=== PATIENT | male | born 1950 | race Caucasian/White ===

== ENCOUNTER 2019-04-23 13:53 | Inpatient (IN) | payer MEDICARE, MEDICAID ==
[2019-04-23 14:50] LABS: INR 1.13 (0.5-1.4); PROTHROMBIN TIME (TEST) 11.6 SECONDS (9.5-11.5)
[2019-04-23 14:54] LABS: ALB/GLOB RATIO 1.6 (1.0-1.8); ALBUMIN 4.6 gm/dL (4.2-5.5); ALKALINE PHOSPHATASE 109 U/L (34-104); ANION GAP 17.5 (7.0-16.0); BUN - UREA NITROGEN 17 mg/dL (7-25); CALCIUM SERUM 9.9 mg/dL (8.6-10.3); CARBON DIOXIDE 20.8 mEq/L (21.0-31.0); CHLORIDE 87 mEq/L (98-107); CREATININE - SERUM 1.2 mg/dL (0.7-1.3); CREATININE KINASE 1065 U/L (30-223); GFR AFRICAN-AMERICAN > 60.0 ml/min (>90); GFR NON AFRICAN-AMERICAN > 60.0 ml/min; GLUCOSE 111 mg/dL (70-105); POTASSIUM SERUM 4.3 mEq/L (3.5-5.1); SGOT 28 U/L (13-39); SGPT/ALT 19 U/L (7-52); SODIUM SERUM 121 mEq/L (136-145); TOTAL PROTEIN,SERUM 7.5 gm/dL (6.0-8.3)
[2019-04-23 15:04] LABS: TROP I 0.02 ng/mL (0.01-0.05)
[2019-04-23] MEDS ORDERED: Sodium Chloride 0.9% 1,000 ML IV ONE (15:05)
[2019-04-23 15:30] LABS: URINE SOURCE MIDSTREAM
[2019-04-23 15:33] LABS: URINE BILIRUBIN NEGATIVE (NEGATIVE); URINE BLOOD LARGE (NEGATIVE); URINE GLUCOSE (UA) NEGATIVE (NEGATIVE); URINE KETONE TRACE mg/dL (NEGATIVE); URINE LEUKOCYTE ESTERASE NEGATIVE (NEGATIVE); URINE MICROSCOPIC INDICATED? YES; URINE NITRATE NEGATIVE (NEGATIVE); URINE PH 5.5 (4.6 - 8.0); URINE PROTEIN >=300 mg/dL (NEGATIVE)
[2019-04-23 15:37] LABS: URINE CLARITY SLIGHT HAZY (CLEAR); URINE COLOR YELLOW
[2019-04-23] MEDS ORDERED: Levofloxacin 500mg/100mL 500 MG/100 ML BAG IV ONE ×2 (15:38→15:46)
--- NOTE | 2019-04-23 15:47 | ED Physician Chart ---
ED Chief Complaint/HPI - Patient Information Date Seen:: 04/23/19 Time Seen:: 14:00 Chief Complaint:: Fever History of Present Illness:: onset x 2 days of fever, cough, congestion, and weakness; no report of trauma, H /As, S/T, neck pain, C/P, SOB, Abd. Pain, A/N/V/D/C, chills, or urinary s/s Allergies:: Allergies Allergy/AdvReac Type Severity Reaction Status Date / Time No Known Allergies Allergy Verified 04/23/19 14:00 Vitals:: Vital Signs - 8 hr 04/23/19 14:00 Temp 99.9 F HR 94 RR 16 BP 135/88 O2 Sat % 98 Historian:: Patient, EMS Review:: Nurse's Note Reviewed, Old Chart Reviewed, EMS run form Reviewed ED Review of Systems - Review of Systems General/Constitutional: Fever, No chills, No weight loss, Weakness, No diaphoresis, No edema, No loss of appetite Skin: No skin lesions, No rash, No bruising Head: No headache, No light-headedness Eyes: No loss of vision, No pain, No diplopia ENT: No earache, Nasal drainage, No sore throat, No tinnitus Neck: No neck pain, No swelling, No thyromegaly, No stiffness, No mass noted Cardio Vascular: No chest pain, No palpitations, No PND, No orthopnea, No edema Pulmonary: No SOB, Cough, No sputum, No wheezing GI: No nausea, No vomiting, No diarrhea, No pain, No melena, No hematochezia, No constipation, No hematemesis G/U: No dysuria, No frequency, No hematuria, No nacturia Musculoskeletal: No bone or joint pain, No back pain, No muscle pain Endocrine: No polyuria, No polydipsia Psychiatric: Prior psych history, No depression, Anxiety, No suicidal ideation, No homicidal ideation, No auditory hallucination, No visual hallucination Hematopoietic: No bruising, No lymphadenopathy Allergic/Immuno: No urticaria, No angioedema Neurological: No syncope, No focal symptoms, Weakness, No paresthesia, No headache, Seizure, No dizziness, Confusion, No vertigo ED Past Medical History - Past Medical History Obtainable: Yes Past Medical History: HTN, CAD, Dyslipidemia, Seizures, Dementia Family History: HTN Social History: Non Smoker, No Alcohol, No Drug Use, Single, Care Facility Surgical History: None Psychiatricy History: Dementia Medication: Reviewed Family Medical History - Family Member Mother History Unknown: Yes ED Physical Exam - Physical Examination General/Constitutional: Awake, Well-developed, well-nourished, Alert, No distress, GCS 15, Non-toxic appearing, Ambulatory Head: Atraumatic Eyes: Lids, conjuctiva normal, PERRL, EOMI Skin: Nl inspection, No rash, No skin lesions, No ecchymosis, Well hydrated, No lymphadenopathy ENMT: External ears, nose nl, TM canals nl, Nasal exam nl, Lips, teeth, gums nl , Oropharynx nl, Tonsils nl Neck: Nontender, Full ROM w/o pain, No JVD, No nuchal rigidity, No bruit, No mass, No stridor Other Neck comments:: supple; no meningeal signs; no cervical tenderness Respiratory: Nl effort/Exclusion Other Respiratory comments:: Lungs: + Rales and Rhonchi Cardio Vascular: RRR, No murmur, gallop, rubs, NL S1 S2, Carotid/Femoral/Distal pulses equal bilaterally GI: No tenderness/rebounding/guarding, No organomegaly, No hernia, Normal BS's, Nondistended, No mass/bruits, No McBurney tenderness, Rectum exam nl Other GI comments:: no pulsatile masses : No CVA tenderness Extremities: No tenderness or effusion, Full ROM, normal strength in all extremities, No edema, Normal digits & nails Neuro/Psych: Alert/oriented, DTR's symmetric, Normal sensory exam, Normal motor strength, Judgement/insight normal, Mood normal, Normal gait, No focal deficits Misc: Normal back, No paraspinal tenderness ED Labs/Radiology/EKG Results - Lab Results Results: Laboratory Tests 04/23/19 04/23/19 04/23/19 14:25 14:25 14:25 PT 11.6 H INR 1.13 PTT (Actin FS) 28.9 Sodium 121 L Potassium 4.3 Chloride 87 L Carbon Dioxide 20.8 L Anion Gap 17.5 H BUN 17 Creatinine 1.2 Est GFR ( Amer) > 60.0 Est GFR (Non-Af Amer) > 60.0 BUN/Creatinine Ratio 14.2 Glucose 111 H Whole Bld Lactic Acid 3.41 H* Calcium 9.9 Total Bilirubin 1.0 AST 28 ALT 19 Alkaline Phosphatase 109 H Creatine Kinase 1065 H Troponin I 0.02 Total Protein 7.5 Albumin 4.6 Globulin 2.9 Albumin/Globulin Ratio 1.6 Comments:: Reviewed - Radiology Results Comments:: CXR: CM; + Patchy LLL Infiltrate - EKG Interpretations EKG Time:: 14:18 Rate & Rhythm: 89; NSR Comments:: non-specific st-t changes ED Septic Shock - . Is Septic Shock (SBP<90, OR Lactate>4 mmol\L) present?: No - <6hrs of presentation: Vital Signs: Vital Signs - 8 hr 04/23/19 14:00 Temp 99.9 F HR 94 RR 16 BP 135/88 O2 Sat % 98 ED Reassessment (Disposition) - Reassessment Reassessment Condition:: Improved - Diagnosis Diagnosis:: Dehydration; Weakness; Cough; Congestion; Hyponatremia; Lactic Acidosis; Elevated Lactic Acid; Pneumonia; Fever; Sepsis; Leukocytosis - Aftercare/Follow up Instructions Aftercare/Follow-Up Instructions:: Counseled pt regarding lab results/diagnosis & need follow up, Counseled pt & family regarding lab results/diagnosis & need follow up - Patient Disposition Discharge/Transfer:: Acute Care w/in this hosp Accepting Physician:: Dr. Swift Time Called:: 1529 Time Responded:: 15:30 Admitted to:: Telemetry Spoke to:: Dr. Swift Admitting Medical Physician:: Dr. Swift Condition at Disposition:: Stable, Improved
[2019-04-23 15:54] LABS: URINE BACTERIA OCCASIONAL /hpf (NONE SEEN); URINE EPITHELIAL CELLS RARE /lpf (FEW)
[2019-04-23 16:22] LABS: CORRECTED WBC 20.1 Th/cmm; WHITE BLOOD COUNT 20.1 Th/cmm (4.8-10.8)
[2019-04-23 16:24] LABS: HEMATOCRIT 42.3 % (41.0-60); HEMOGLOBIN 14.2 gm/dL (12-16); MEAN CORPUSCULAR HEMOGLOBIN 31.5 pg (27.0-31.0)
[2019-04-23 16:25] LABS: MEAN CORPUSCULAR HGB CONC 33.6 pg (28.0-36.0); PLATELET COUNT 254 Th/cmm (150-400); RED CELL DISTRIBUTION WIDTH 12.8 % (11.5-20.0)
[2019-04-23 16:53] LABS: BAND NEUTROPHILE 4 % (0-10); LYMPHOCYTE 5 % (20-50); MONOCYTE 5 % (2-10); NEUTROPHILS 86 % (40-80)
[2019-04-23] MEDS ORDERED: Sodium Chloride 0.9% 1,000 ML IV SCH ×3 (17:03→23:20)
[2019-04-24] MEDS: Sodium Chloride 0.9% 1,000 ML IV SCH ×3 (00:55→20:54)
[2019-04-24 06:45] LABS: EOSINOPHILE ABSOLUTE 0.1 Th/cmm (0.1-0.4); HEMATOCRIT 39.4 % (41.0-60); HEMOGLOBIN 12.8 gm/dL (12-16); LYMPHOCYTE ABSOLUTE 0.7 Th/cmm (1.5-3.0); MEAN CELL VOLUME 96.7 fl (80-99); MEAN CORPUSCULAR HEMOGLOBIN 31.4 pg (27.0-31.0); MEAN CORPUSCULAR HGB CONC 32.5 pg (28.0-36.0); MEAN PLATELET VOLUME 7.4 fl; MONOCYTE ABSOLUTE 0.9 Th/cmm (0.3-1.0); NEUTROPHILE ABSOLUTE 16.4 Th/cmm (1.8-8.0); PLATELET COUNT 214 Th/cmm (150-400); RED BLOOD COUNT 4.07 Mil/cmm (3.80-5.80); RED CELL DISTRIBUTION WIDTH 12.8 % (11.5-20.0)
[2019-04-24 06:53] LABS: ALB/GLOB RATIO 1.4 (1.0-1.8); ALBUMIN 3.5 gm/dL (4.2-5.5); ALKALINE PHOSPHATASE 83 U/L (34-104); BILIRUBIN,TOTAL 0.9 mg/dL (0.3-1.0); BUN - UREA NITROGEN 16 mg/dL (7-25); CALCIUM SERUM 8.8 mg/dL (8.6-10.3); CARBON DIOXIDE 22.1 mEq/L (21.0-31.0); CHLORIDE 93 mEq/L (98-107); CREATININE - SERUM 1.1 mg/dL (0.7-1.3); GFR AFRICAN-AMERICAN > 60.0 ml/min (>90); GFR NON AFRICAN-AMERICAN > 60.0 ml/min; GLUCOSE 133 mg/dL (70-105); POTASSIUM SERUM 4.1 mEq/L (3.5-5.1); SGOT 32 U/L (13-39); SGPT/ALT 19 U/L (7-52); SODIUM SERUM 123 mEq/L (136-145)
[2019-04-24 07:00] LABS: WHITE BLOOD COUNT 18.1 Th/cmm (4.8-10.8)
[2019-04-24 07:31] LABS: BAND NEUTROPHILE 0 % (0-10); BASOPHIL 0 % (0-3); EOSINOPHIL 0 % (0-5); LYMPHOCYTE 5 % (20-50); MONOCYTE 6 % (2-10); NEUTROPHILS 89 % (40-80)
--- NOTE | 2019-04-24 08:14 | Diagnostic Imaging Report ---
Portable chest x-ray HISTORY: Pain The heart is enlarged. No focal prominent processes. No hilar or mediastinal abnormalities. IMPRESSION: 1. Allowing for a poor inspiration, no acute focal pulmonary processes
--- NOTE | 2019-04-24 08:19 | History and Physical ---
History of Present Illness - HPI Chief Complaint: cough, fever, congestion, weakness for 2 days HPI: 68 y/o male who presents to [facility] ER for 2 day history of fever, chills, cough, congestion, weakness. Patient has a history of HTN, CAD, dyslipidemia, seizure d/o, dementia, weakness, encephalopathy, CAD. Patient presents to the hospi Vital Signs: Last Vital Signs Temp 98.9 F 04/24/19 07:51 Pulse 79 04/24/19 07:51 Resp 18 04/24/19 07:51 BP 130/61 04/24/19 07:51 Pulse Ox 97 04/24/19 07:51 Past Medical History Cardiovascular: Report: CAD, HTN, Hyperlipidemia Pulmonary: Report: No Pertinent Hx CUPOLA LINER: Report: Dementia, Seizure, Other (encephalopathy) GI: Report: No Pertinent Hx Psych: Report: No Pertinent Hx Musculoskeletal: Report: Weakness Rheumatologic: Report: No pertinent Hx Infectious Disease: Report: No Pertinent Hx Renal/: Report: No Pertinent Hx Endocrine: Report: No Pertinent Hx Dermatology: Report: No Pertinent Hx - Past Surgical History Past Surgical History: No pertinent Hx Family Medical History - Family Member Mother History Unknown: Yes Social History Smoke: No Alcohol: None Drugs: None Lives: [facility] - Medications Home Medications: Home Medication Medication Instructions Recorded Type Acetaminophen [Tylenol] 650 mg PO Q6HR PRN 04/23/19 History Amlodipine Besylate 10 mg PO DAILY 04/23/19 History Aspirin [Aspirin Chewable] 81 mg PO DAILY 04/23/19 History Clonazepam [Klonopin] 0.5 mg PO BID 04/23/19 History Donepezil HCl [Aricept] 10 mg PO HS 04/23/19 History Furosemide [Lasix] 20 mg PO MWF 04/23/19 History Gabapentin 600 mg PO TID 04/23/19 History Gemfibrozil 600 mg PO HS 04/23/19 History Lamotrigine [Lamictal Xr] 250 mg PO BID 04/23/19 History Memantine [Namenda] 10 mg PO BID 04/23/19 History Metoprolol Tartrate 25 mg PO BID 04/23/19 History Oxcarbazepine [Oxcarbazepine*] 600 mg PO BID 04/23/19 History - Allergies Allergies/Adverse Reactions: Allergies Allergy/AdvReac Type Severity Reaction Status Date / Time No Known Allergies Allergy Verified 04/23/19 14:00 Review of Systems - Review of Systems Constitutional: Report: Fever, Weakness, Malaise Eyes: Report: No Significant ENT: Report: No Significant Respiratory: Report: Other (decrease breath sounds on the left) Cardiovascular: Report: No Significant Gastrointestinal: Report: No Significant Genitourinary: Report: No Significant Musculoskeletal: Report: No Significant Skin: Report: No Significant Neurological: Report: Weakness Physical Exam - Physical Exam HEENT: Report: Ears Nose Throat within normal limits, Pharnyx within normal limits Neck: Report: Within normal limits Cardiovascular Systems: Report: +s1/s2 noted, Regular, Rate and Rhythm Respiratory: Report: Other (decrease lung sounds on the left) Abdomen: Report: Non-tender to palpation Back: Report: Inspection of back is within normal limits. Extremities: Report: Non-tender to palpation. Skin: Report: Color of skin is within normal limits Neuro/Psych: Report: Mood affect is within normal limits, A+Ox3 - Lab Results All Lab Results last 24 hours: Laboratory Results - last 24 hr 04/23/19 04/23/19 04/23/19 14:25 14:25 14:25 WBC 20.1 H* Corrected WBC (auto) 20.1 RBC 4.50 Hgb 14.2 Hct 42.3 MCV 94.0 MCH 31.5 H MCHC Differential 33.6 RDW 12.8 Plt Count 254 MPV 7.0 Add Manual Diff YES Band Neutrophils % 4 Neutrophils (Manual) 86 H Lymphocytes 5 L Monocytes 5 Eosinophils Basophils PT 11.6 H INR 1.13 PTT (Actin FS) 28.9 Sodium 121 L Potassium 4.3 Chloride 87 L Carbon Dioxide 20.8 L Anion Gap 17.5 H BUN 17 Creatinine 1.2 Est GFR ( Amer) > 60.0 Est GFR (Non-Af Amer) > 60.0 BUN/Creatinine Ratio 14.2 Glucose 111 H POC Glucose Whole Bld Lactic Acid Calcium 9.9 Total Bilirubin 1.0 AST 28 ALT 19 Alkaline Phosphatase 109 H Creatine Kinase 1065 H CK-MB (CK-2) 9.3 H Troponin I Total Protein 7.5 Albumin 4.6 Globulin 2.9 Albumin/Globulin Ratio 1.6 Urine Source Urine Color Urine Clarity Urine pH Ur Specific [place] Urine Protein Urine Glucose (UA) Urine Ketones Urine Blood Urine Nitrate Urine Bilirubin Urine Urobilinogen Ur Leukocyte Esterase Urine RBC Urine WBC Ur Epithelial Cells Urine Bacteria 04/23/19 04/23/19 04/23/19 14:25 15:00 16:45 WBC Corrected WBC (auto) RBC Hgb Hct MCV MCH MCHC Differential RDW Plt Count MPV Add Manual Diff Band Neutrophils % Neutrophils (Manual) Lymphocytes Monocytes Eosinophils Basophils PT INR PTT (Actin FS) Sodium Potassium Chloride Carbon Dioxide Anion Gap BUN Creatinine Est GFR ( Amer) Est GFR (Non-Af Amer) BUN/Creatinine Ratio Glucose POC Glucose Whole Bld Lactic Acid 3.41 H* 3.66 H* Calcium Total Bilirubin AST ALT Alkaline Phosphatase Creatine Kinase CK-MB (CK-2) Troponin I 0.02 Total Protein Albumin Globulin Albumin/Globulin Ratio Urine Source [place] Urine Color YELLOW Urine Clarity SLIGHT HAZY Urine pH 5.5 Ur Specific [place] 1.015 Urine Protein >=300 Urine Glucose (UA) NEGATIVE Urine Ketones TRACE Urine Blood LARGE H Urine Nitrate NEGATIVE Urine Bilirubin NEGATIVE Urine Urobilinogen 1.0 Ur Leukocyte Esterase NEGATIVE Urine RBC 2-5 H Urine WBC 2-5 Ur Epithelial Cells RARE Urine Bacteria OCCASIONAL 04/23/19 04/23/19 04/24/19 16:53 23:59 06:10 WBC 18.1 H Corrected WBC (auto) RBC 4.07 Hgb 12.8 Hct 39.4 L MCV 96.7 MCH 31.4 H MCHC Differential 32.5 RDW 12.8 Plt Count 214 MPV 7.4 Add Manual Diff YES Band Neutrophils % 0 Neutrophils (Manual) 89 H Lymphocytes 5 L Monocytes 6 Eosinophils 0 Basophils 0 PT INR PTT (Actin FS) Sodium Potassium Chloride Carbon Dioxide Anion Gap BUN Creatinine Est GFR ( Amer) Est GFR (Non-Af Amer) BUN/Creatinine Ratio Glucose POC Glucose 97 Whole Bld Lactic Acid 2.13 H* Calcium Total Bilirubin AST ALT Alkaline Phosphatase Creatine Kinase CK-MB (CK-2) Troponin I Total Protein Albumin Globulin Albumin/Globulin Ratio Urine Source Urine Color Urine Clarity Urine pH Ur Specific [place] Urine Protein Urine Glucose (UA) Urine Ketones Urine Blood Urine Nitrate Urine Bilirubin Urine Urobilinogen Ur Leukocyte Esterase Urine RBC Urine WBC Ur Epithelial Cells Urine Bacteria 04/24/19 04/24/19 06:10 06:10 WBC Corrected WBC (auto) RBC Hgb Hct MCV MCH MCHC Differential RDW Plt Count MPV Add Manual Diff Band Neutrophils % Neutrophils (Manual) Lymphocytes Monocytes Eosinophils Basophils PT INR PTT (Actin FS) Sodium 123 L Potassium 4.1 Chloride 93 L Carbon Dioxide 22.1 Anion Gap 12.0 BUN 16 Creatinine 1.1 Est GFR ( Amer) > 60.0 Est GFR (Non-Af Amer) > 60.0 BUN/Creatinine Ratio 14.5 Glucose 133 H POC Glucose Whole Bld Lactic Acid 1.49 Calcium 8.8 Total Bilirubin 0.9 AST 32 ALT 19 Alkaline Phosphatase 83 Creatine Kinase CK-MB (CK-2) Troponin I Total Protein 6.0 Albumin 3.5 L Globulin 2.5 Albumin/Globulin Ratio 1.4 Urine Source Urine Color Urine Clarity Urine pH Ur Specific [place] Urine Protein Urine Glucose (UA) Urine Ketones Urine Blood Urine Nitrate Urine Bilirubin Urine Urobilinogen Ur Leukocyte Esterase Urine RBC Urine WBC Ur Epithelial Cells Urine Bacteria - Assessment Assessment: hyponatremia sepsis leukocytosis LLL PNA Rhabdomylosis elevated lactic acid HTN CAD Dyslipidemia Seizure d/o dementia weakness amd fatigue encephalopathy CAD - Plan Plan: ID consult Pulmonary consult Neuro consult psychiatric consult repeat CBC,CMP,lipid profile, TSH, CK, Ck-MB, lactic acid continue IV fluids continue IV Zosyn and azithromycin repeat cxr tomorrow
[2019-04-24 08:31] LABS: CHOLESTEROL 126 mg/dL (<200); HDL -HIGH DENSITY LIPOPROTEIN 56 mg/dL (23-92); TRIGLYCERIDES 65 mg/dL (<150)
--- NOTE | 2019-04-24 08:31 | Consultation ---
Consult Note - Consult Note Service Date: 04/24/19 Referring Physician: Flash Carrion Consult Note: PHYSICIAN Consultation Note: Date of Admission: 04/23/19 Purpose of Consultation: Sepsis, Pneumonia Chief Complaint: Patient CHARLIE FERNANDEZ was admitted to [facility] Telemetry with SEPSIS, PNA, HYPONATREMIA. History of Present Illness: 68 y/o male with PMH of HTN, CAD, dyslipidemia, seizure d/o, dementia, weakness , encephalopathy, CAD presented to the ER for 2 day history of fever, chills, cough, congestion, weakness. On initiall evaluation, his temperature was 99.9F , it went up to 100.3F and WBC count was 20,100. Lactic acid was 3.41 and it went up to 3.66. I was called for antibiotic management. High flow IVF given and his Lactic acid improved. Antibiotic romeo, he had received levaquin in the ER, and it was changed to Zosyn and Zithromax. HE feels better. He is a poor hisptorian and does not provide any meaningful history. Past Medical History: HTN, CAD, dyslipidemia, seizure d/o, dementia, weakness, encephalopathy, CAD Allergies Allergy/AdvReac Type Severity Reaction Status Date / Time No Known Allergies Allergy Verified 04/23/19 14:00 Vital Signs Temp 98.9 F 04/24/19 07:51 Pulse 79 04/24/19 07:51 Resp 18 04/24/19 07:51 BP 130/61 04/24/19 07:51 Pulse Ox 97 04/24/19 07:51 Intake & Output 04/23/19 04/24/19 04/24/19 18:59 06:59 18:59 Intake Total 1193.333 764.583 Balance 1193.333 764.583 Weight (lbs) 105.687 kg 105.687 kg Intake: Intake, IV Amount 1043.333 764.583 Piperacillin Sodium/ 200 Tazobact 4.5 gm In Sodium Chloride 0.9% 100 ml @ 100 mls/hr IV Q8HR JUAN Rx #:[id number] Sodium Chloride 0.9% 1, 764.583 000 ml @ 125 mls/hr IV . Q8H JUAN Rx#:[id number] Sodium Chloride 0.9% 1, 593.333 000 ml @ 200 mls/hr IV . Q5H JUAN Rx#:[id number] Oral 150 Other: # Voids 4 Weight Source Estimated Bedscale Laboratory Results - last 24 hr 04/23/19 04/23/19 04/23/19 14:25 14:25 14:25 WBC 20.1 H* Corrected WBC (auto) 20.1 RBC 4.50 Hgb 14.2 Hct 42.3 MCV 94.0 MCH 31.5 H MCHC Differential 33.6 RDW 12.8 Plt Count 254 MPV 7.0 Add Manual Diff YES Band Neutrophils % 4 Neutrophils (Manual) 86 H Lymphocytes 5 L Monocytes 5 Eosinophils Basophils PT 11.6 H INR 1.13 PTT (Actin FS) 28.9 Sodium 121 L Potassium 4.3 Chloride 87 L Carbon Dioxide 20.8 L Anion Gap 17.5 H BUN 17 Creatinine 1.2 Est GFR ( Amer) > 60.0 Est GFR (Non-Af Amer) > 60.0 BUN/Creatinine Ratio 14.2 Glucose 111 H POC Glucose Whole Bld Lactic Acid Calcium 9.9 Total Bilirubin 1.0 AST 28 ALT 19 Alkaline Phosphatase 109 H Creatine Kinase 1065 H CK-MB (CK-2) 9.3 H Troponin I Total Protein 7.5 Albumin 4.6 Globulin 2.9 Albumin/Globulin Ratio 1.6 Urine Source Urine Color Urine Clarity Urine pH Ur Specific [place] Urine Protein Urine Glucose (UA) Urine Ketones Urine Blood Urine Nitrate Urine Bilirubin Urine Urobilinogen Ur Leukocyte Esterase Urine RBC Urine WBC Ur Epithelial Cells Urine Bacteria 04/23/19 04/23/19 04/23/19 14:25 15:00 16:45 WBC Corrected WBC (auto) RBC Hgb Hct MCV MCH MCHC Differential RDW Plt Count MPV Add Manual Diff Band Neutrophils % Neutrophils (Manual) Lymphocytes Monocytes Eosinophils Basophils PT INR PTT (Actin FS) Sodium Potassium Chloride Carbon Dioxide Anion Gap BUN Creatinine Est GFR ( Amer) Est GFR (Non-Af Amer) BUN/Creatinine Ratio Glucose POC Glucose Whole Bld Lactic Acid 3.41 H* 3.66 H* Calcium Total Bilirubin AST ALT Alkaline Phosphatase Creatine Kinase CK-MB (CK-2) Troponin I 0.02 Total Protein Albumin Globulin Albumin/Globulin Ratio Urine Source [place] Urine Color YELLOW Urine Clarity SLIGHT HAZY Urine pH 5.5 Ur Specific [place] 1.015 Urine Protein >=300 Urine Glucose (UA) NEGATIVE Urine Ketones TRACE Urine Blood LARGE H Urine Nitrate NEGATIVE Urine Bilirubin NEGATIVE Urine Urobilinogen 1.0 Ur Leukocyte Esterase NEGATIVE Urine RBC 2-5 H Urine WBC 2-5 Ur Epithelial Cells RARE Urine Bacteria OCCASIONAL 04/23/19 04/23/19 04/24/19 16:53 23:59 06:10 WBC 18.1 H Corrected WBC (auto) RBC 4.07 Hgb 12.8 Hct 39.4 L MCV 96.7 MCH 31.4 H MCHC Differential 32.5 RDW 12.8 Plt Count 214 MPV 7.4 Add Manual Diff YES Band Neutrophils % 0 Neutrophils (Manual) 89 H Lymphocytes 5 L Monocytes 6 Eosinophils 0 Basophils 0 PT INR PTT (Actin FS) Sodium Potassium Chloride Carbon Dioxide Anion Gap BUN Creatinine Est GFR ( Amer) Est GFR (Non-Af Amer) BUN/Creatinine Ratio Glucose POC Glucose 97 Whole Bld Lactic Acid 2.13 H* Calcium Total Bilirubin AST ALT Alkaline Phosphatase Creatine Kinase CK-MB (CK-2) Troponin I Total Protein Albumin Globulin Albumin/Globulin Ratio Urine Source Urine Color Urine Clarity Urine pH Ur Specific [place] Urine Protein Urine Glucose (UA) Urine Ketones Urine Blood Urine Nitrate Urine Bilirubin Urine Urobilinogen Ur Leukocyte Esterase Urine RBC Urine WBC Ur Epithelial Cells Urine Bacteria 04/24/19 04/24/19 06:10 06:10 WBC Corrected WBC (auto) RBC Hgb Hct MCV MCH MCHC Differential RDW Plt Count MPV Add Manual Diff Band Neutrophils % Neutrophils (Manual) Lymphocytes Monocytes Eosinophils Basophils PT INR PTT (Actin FS) Sodium 123 L Potassium 4.1 Chloride 93 L Carbon Dioxide 22.1 Anion Gap 12.0 BUN 16 Creatinine 1.1 Est GFR ( Amer) > 60.0 Est GFR (Non-Af Amer) > 60.0 BUN/Creatinine Ratio 14.5 Glucose 133 H POC Glucose Whole Bld Lactic Acid 1.49 Calcium 8.8 Total Bilirubin 0.9 AST 32 ALT 19 Alkaline Phosphatase 83 Creatine Kinase CK-MB (CK-2) Troponin I Total Protein 6.0 Albumin 3.5 L Globulin 2.5 Albumin/Globulin Ratio 1.4 Urine Source Urine Color Urine Clarity Urine pH Ur Specific [place] Urine Protein Urine Glucose (UA) Urine Ketones Urine Blood Urine Nitrate Urine Bilirubin Urine Urobilinogen Ur Leukocyte Esterase Urine RBC Urine WBC Ur Epithelial Cells Urine Bacteria Home Medication Medication Instructions Recorded Type Acetaminophen [Tylenol] 650 mg PO Q6HR PRN 04/23/19 History Amlodipine Besylate 10 mg PO DAILY 04/23/19 History Aspirin [Aspirin Chewable] 81 mg PO DAILY 04/23/19 History Clonazepam [Klonopin] 0.5 mg PO BID 04/23/19 History Donepezil HCl [Aricept] 10 mg PO HS 04/23/19 History Furosemide [Lasix] 20 mg PO MWF 04/23/19 History Gabapentin 600 mg PO TID 04/23/19 History Gemfibrozil 600 mg PO HS 04/23/19 History Lamotrigine [Lamictal Xr] 250 mg PO BID 04/23/19 History Memantine [Namenda] 10 mg PO BID 04/23/19 History Metoprolol Tartrate 25 mg PO BID 04/23/19 History Oxcarbazepine [Oxcarbazepine*] 600 mg PO BID 04/23/19 History Current Medications Generic Name Dose Route Start Last Admin Trade Name Freq PRN Reason Stop Dose Admin Amlodipine Besylate 10 mg 04/24/19 09:00 Norvasc PO 06/23/19 08:59 DAILY JUAN Aspirin 81 mg 04/24/19 09:00 Aspirin Chewable PO 06/23/19 08:59 DAILY JUAN Clonazepam 0.5 mg 04/24/19 09:00 Klonopin PO 06/23/19 08:59 BID [facility] Protocol Donepezil HCl 10 mg 04/24/19 21:00 Aricept PO 06/23/19 20:59 HS JUAN Azithromycin 500 mg/ Sodium 250 mls @ 250 mls/hr 04/24/19 09:00 Chloride IV 06/23/19 08:59 Q24HR JUAN Piperacillin Sod/Tazobactam 100 mls @ 100 mls/hr 04/23/19 21:00 04/24/19 05: 16 Sod 4.5 gm/ Sodium Chloride IV 06/22/19 20:59 Infused Q8HR JUAN Infusion Lamotrigine 200 mg/ 250 mg 04/24/19 09:00 Lamotrigine 50 mg PO 06/23/19 08:59 BID JUAN Memantine 10 mg 04/24/19 09:00 Namenda PO 06/23/19 08:59 BID [facility] Metoprolol Tartrate 25 mg 04/24/19 09:00 Lopressor PO 06/23/19 08:59 BID JUAN Oxcarbazepine 600 mg 04/24/19 09:00 Trileptal PO 06/23/19 08:59 BID JUAN Review of Systems: A 12 point ROS was reviewed with the pertinent positive and negatives noted in the HPI. GEN: NO fever, no chills, no diaphoresis. Has general;ized weakness. HEENT: no diplopia, no photophobia, no sore throat, no ear discharge. RS: copugh, no shortness of breath. CVS: no CP, no palpitations, no leg swelling. GI: No N/V/D/C. no abd pains. : no dysuria. no hematuria. CAREER SPECIALIST: No headache, no dizziness. Social History Smoking Status Never smoker Drug Use No Alcohol Use No Family Medical History Unknown Physical Exam: General: Comfortable, not in any acute distress. WN WD. HEENT: HEAD: NC NT. ORAL CAVITy: moist, pink tongue. EYES: Pupil PERRLA. EOMI. Neck: Supple, no JVD, no carotid bruit. No use of accessory neck muscles. Cardio: S1 and S2 WNL. no murmur. no gallop, no rub. Respiratory: CTAP Abdominal: Soft NT ND BS present. no hepatosplenomegaly. Genital/Urinary: Deferred Extremities: NCC, pulses are palpable in all 4 limbs. Left leg swelling and redness. warm to touch Neurological: Alert awake, moves all 4 limbs, speech is clear. Assessment: 1. Sepsis. severe sepsis with lactic acidosis. 2. Left leg cellulitis. 3. Susoect Pneumonia. 4. HTN. 5. Rhabdomyolysis. 6. Hyponatremia. 7. Dementia. Plan: Will change Zosyn and Zithromax to levaquin. Add vanco IV, IVF support. Thank you Dr Carrion for involving me in taking care of this patient. Signed, Nestor Morataya M.D. [id number]
--- NOTE | 2019-04-24 08:48 | Diagnostic Imaging Report ---
Portable chest x-ray HISTORY: Shortness of breath The heart is enlarged. No focal pulmonary processes. No hilar or mediastinal abnormalities. IMPRESSION: 1. Cardiomegaly 2. No focal pulmonary processes.
[2019-04-24] MEDS ORDERED: Azithromycin 500 MG in Sodium Chloride 0.9% 250 ML IV SCH (09:00)
[2019-04-24] MEDS ORDERED: LAMOTRIGINE 250 MG PO SCH (09:00)
[2019-04-24] MEDS: Aspirin 81mg Chewable Tab PO SCH (09:08)
[2019-04-24] MEDS ORDERED: Levofloxacin 500mg/100mL 500 MG/100 ML BAG IV SCH ×2 (10:00→17:00)
[2019-04-24] MEDS ORDERED: Vancomycin HCl 1.75 GM in Sodium Chloride 0.9% 500 ML IV ONE (16:00)
[2019-04-24] MEDS ORDERED: Vancomycin HCl 1.5 GM in Sodium Chloride 0.9% 500 ML IV ONE (16:00)
--- NOTE | 2019-04-25 02:22 | Consultation ---
DATE OF CONSULTATION: 04/24/2019 HISTORY OF PRESENT ILLNESS: The patient is 68-year-old. Complains of weakness. Redness in the left leg. Swelling in the left leg. 1. The patient has underlying history of hypertension. 3. Dyslipidemia. 4. Coronary artery disease. 5. Seizures. 6. Dementia. 7. Weakness. MEDICATIONS: As per reconciliation. The patient was on aspirin, clonazepam, Aricept, Lasix, gabapentin, gemfibrozil, lamotrigine 250 b.i.d., oxcarbazepine 600 b.i.d., metoprolol. ALLERGIES: None known. SOCIAL HISTORY: Does not smoke or drink. PHYSICAL EXAMINATION: VITAL SIGNS: Temperature 98.2, blood pressure 130/70, pulse 74. NECK: Supple, no bruits. HEART: Sounds S1, S2. LUNGS: Clear. NEUROLOGIC: The patient is awake, alert. He would like to answer questions. Speech slow, but able to answer. He did not know what day, what month, what year. CRANIAL: Pupils react to light. Full eye movement, no nystagmus. No facial weakness. MOTOR: He will lift both arms. Legs, he has redness of the left leg, swelling of the left lower leg. INVESTIGATIONS: CPK elevated. Sodium very low at 121. IMPRESSION: 1. History of seizure disorder. 2. Hyponatremia, probably medication related. 3. Rhabdomyolysis. 4. The patient has cellulitis infection of the left lower leg. 5. Hypertension. 6. Dementia. 7. Hyperlipidemia. PLAN: Monitor CPK level. May need to adjust the patient's seizure medications. I do not know whether he has had any issues with other seizure medication such as Keppra. JOB# [id number]
[2019-04-25 06:25] LABS: HEMATOCRIT 40.4 % (41.0-60); HEMOGLOBIN 13.4 gm/dL (12-16); MEAN CELL VOLUME 95.2 fl (80-99); MEAN CORPUSCULAR HEMOGLOBIN 31.5 pg (27.0-31.0); MEAN CORPUSCULAR HGB CONC 33.1 pg (28.0-36.0); MEAN PLATELET VOLUME 7.2 fl; PLATELET COUNT 231 Th/cmm (150-400); RED BLOOD COUNT 4.25 Mil/cmm (3.80-5.80); RED CELL DISTRIBUTION WIDTH 12.9 % (11.5-20.0)
[2019-04-25 06:45] LABS: ALB/GLOB RATIO 1.2 (1.0-1.8); ALBUMIN 3.5 gm/dL (4.2-5.5); ALKALINE PHOSPHATASE 97 U/L (34-104); ANION GAP 12.9 (7.0-16.0); BILIRUBIN,TOTAL 0.7 mg/dL (0.3-1.0); BUN - UREA NITROGEN 11 mg/dL (7-25); CALCIUM SERUM 8.9 mg/dL (8.6-10.3); CARBON DIOXIDE 21.9 mEq/L (21.0-31.0); CHLORIDE 95 mEq/L (98-107); CREATININE - SERUM 0.7 mg/dL (0.7-1.3); CREATININE KINASE 474 U/L (30-223); GFR AFRICAN-AMERICAN > 60.0 ml/min (>90); GFR NON AFRICAN-AMERICAN > 60.0 ml/min; GLUCOSE 120 mg/dL (70-105); POTASSIUM SERUM 3.8 mEq/L (3.5-5.1); SGOT 21 U/L (13-39); SGPT/ALT 17 U/L (7-52); SODIUM SERUM 126 mEq/L (136-145); TOTAL PROTEIN,SERUM 6.4 gm/dL (6.0-8.3)
[2019-04-25 07:27] LABS: BAND NEUTROPHILE 0 % (0-10); BASOPHIL 0 % (0-3); EOSINOPHIL 3 % (0-5); LYMPHOCYTE 6 % (20-50); MONOCYTE 5 % (2-10); NEUTROPHILS 86 % (40-80)
--- NOTE | 2019-04-25 07:40 | General Progress Note ---
Subjective - Review of Systems Service Date: 04/25/19 Subjective: Patient is feeling better. No acute distress. more awake alert. Objective - Results Result Diagrams: 04/25/19 05:45 04/25/19 05:45 Recent Labs: Laboratory Last Values WBC 15.0 Th/cmm (4.8-10.8) H 04/25/19 05:45 Corrected WBC (auto) 20.1 Th/cmm 04/23/19 14:25 RBC 4.25 Mil/cmm (3.80-5.80) 04/25/19 05:45 Hgb 13.4 gm/dL (12-16) 04/25/19 05:45 Hct 40.4 % (41.0-60) L 04/25/19 05:45 MCV 95.2 fl (80-99) 04/25/19 05:45 MCH 31.5 pg (27.0-31.0) H 04/25/19 05:45 MCHC Differential 33.1 pg (28.0-36.0) 04/25/19 05:45 RDW 12.9 % (11.5-20.0) 04/25/19 05:45 Plt Count 231 Th/cmm (150-400) 04/25/19 05:45 MPV 7.2 fl 04/25/19 05:45 Add Manual Diff YES 04/25/19 05:45 Band Neutrophils % 0 % (0-10) 04/25/19 05:45 Neutrophils (Manual) 86 % (40-80) H 04/25/19 05:45 Lymphocytes 6 % (20-50) L 04/25/19 05:45 Monocytes 5 % (2-10) 04/25/19 05:45 Eosinophils 3 % (0-5) 04/25/19 05:45 Basophils 0 % (0-3) 04/25/19 05:45 PT 11.6 SECONDS (9.5-11.5) H 04/23/19 14:25 INR 1.13 (0.5-1.4) 04/23/19 14:25 PTT (Actin FS) 28.9 SECONDS (26.0-38.0) 04/23/19 14:25 Sodium 126 mEq/L (136-145) L 04/25/19 05:45 Potassium 3.8 mEq/L (3.5-5.1) 04/25/19 05:45 Chloride 95 mEq/L (98-107) L 04/25/19 05:45 Carbon Dioxide 21.9 mEq/L (21.0-31.0) 04/25/19 05:45 Anion Gap 12.9 (7.0-16.0) 04/25/19 05:45 BUN 11 mg/dL (7-25) 04/25/19 05:45 Creatinine 0.7 mg/dL (0.7-1.3) 04/25/19 05:45 Est GFR ( Amer) > 60.0 ml/min (>90) 04/25/19 05:45 Est GFR (Non-Af Amer) > 60.0 ml/min 04/25/19 05:45 BUN/Creatinine Ratio 15.7 04/25/19 05:45 Glucose 120 mg/dL (70-105) H 04/25/19 05:45 POC Glucose 97 MG/DL (70 - 105) 04/23/19 16:53 Whole Bld Lactic Acid 1.49 mmol/L (0.60-1.99) 04/24/19 06:10 Calcium 8.9 mg/dL (8.6-10.3) 04/25/19 05:45 Total Bilirubin 0.7 mg/dL (0.3-1.0) 04/25/19 05:45 AST 21 U/L (13-39) 04/25/19 05:45 ALT 17 U/L (7-52) 04/25/19 05:45 Alkaline Phosphatase 97 U/L (34-104) 04/25/19 05:45 Creatine Kinase 474 U/L (30-223) H 04/25/19 05:45 CK-MB (CK-2) 1.7 ng/mL (0.6-6.3) 04/25/19 05:45 Troponin I 0.02 ng/mL (0.01-0.05) 04/23/19 14:25 Total Protein 6.4 gm/dL (6.0-8.3) 04/25/19 05:45 Albumin 3.5 gm/dL (4.2-5.5) L 04/25/19 05:45 Globulin 2.9 gm/dL 04/25/19 05:45 Albumin/Globulin Ratio 1.2 (1.0-1.8) 04/25/19 05:45 Triglycerides 65 mg/dL (<150) 04/24/19 06:10 Cholesterol 126 mg/dL (<200) 04/24/19 06:10 LDL Cholesterol Direct 53 mg/dL (75-193) L 04/24/19 06:10 HDL Cholesterol 56 mg/dL (23-92) 04/24/19 06:10 TSH 0.85 uIU/ml (0.34-5.60) 04/24/19 06:10 Urine Source MIDSTREAM 04/23/19 15:00 Urine Color YELLOW 04/23/19 15:00 Urine Clarity SLIGHT HAZY (CLEAR) 04/23/19 15:00 Urine pH 5.5 (4.6 - 8.0) 04/23/19 15:00 Ur Specific [place] 1.015 (1.005-1.030) 04/23/19 15:00 Urine Protein >=300 mg/dL (NEGATIVE) 04/23/19 15:00 Urine Glucose (UA) NEGATIVE mg/dL (NEGATIVE) 04/23/19 15:00 Urine Ketones TRACE mg/dL (NEGATIVE) 04/23/19 15:00 Urine Blood LARGE (NEGATIVE) H 04/23/19 15:00 Urine Nitrate NEGATIVE (NEGATIVE) 04/23/19 15:00 Urine Bilirubin NEGATIVE (NEGATIVE) 04/23/19 15:00 Urine Urobilinogen 1.0 E.U./dL (0.2 - 1.0) 04/23/19 15:00 Ur Leukocyte Esterase NEGATIVE (NEGATIVE) 04/23/19 15:00 Urine RBC 2-5 /hpf (0-5) H 04/23/19 15:00 Urine WBC 2-5 /hpf (0-5) 04/23/19 15:00 Ur Epithelial Cells RARE /lpf (FEW) 04/23/19 15:00 Urine Bacteria OCCASIONAL /hpf (NONE SEEN) 04/23/19 15:00 - Physical Exam Vitals and I&O: Vital Signs Temp 98.2 F 04/25/19 04:00 Pulse 78 04/25/19 04:00 Resp 19 04/25/19 05:00 BP 117/65 04/25/19 04:00 Pulse Ox 97 04/25/19 04:00 Intake & Output 04/24/19 04/25/19 04/25/19 18:59 06:59 18:59 Intake Total 1124.583 Balance 1124.583 Weight (lbs) 105.687 kg 105.687 kg Intake: Intake, IV Amount 764.583 Sodium Chloride 0.9% 1, 764.583 000 ml @ 125 mls/hr IV . Q8H [facility] Rx#:[id number] Oral 360 Other: # Voids 2 3 # Bowel Movements 1 Weight Source Bedscale Bedscale Active Medications: Current Medications Amlodipine Besylate (Norvasc) 10 mg PO DAILY [facility] Stop: 06/23/19 08:59 Last Admin: 04/24/19 09:08 Dose: 10 mg Aspirin (Aspirin Chewable) 81 mg PO DAILY [facility] Stop: 06/23/19 08:59 Last Admin: 04/24/19 09:08 Dose: 81 mg Clonazepam (Klonopin) 0.5 mg PO BID [facility]; Protocol Stop: 06/23/19 08:59 Last Admin: 04/24/19 16:34 Dose: 0.5 mg Donepezil HCl (Aricept) 10 mg PO HS [facility] Stop: 06/23/19 20:59 Last Admin: 04/24/19 20:49 Dose: 10 mg Sodium Chloride (Nacl 0.9%) 1,000 mls @ 80 mls/hr IV .[id number] [facility] Stop: 06/23/19 08:44 Last Admin: 04/24/19 20:54 Dose: 80 mls/hr Levofloxacin (Levaquin Pb) 500 mg in 100 mls @ 100 mls/hr IV Q24HR [facility] Stop: 06/23/19 09:59 Last Admin: 04/24/19 10:35 Dose: 100 mls/hr Vancomycin HCl 1.5 gm/ Sodium (Chloride) 500 mls @ 250 mls/hr IV Q12H [facility] Stop: 06/24/19 08:59 Lamotrigine 200 mg/ (Lamotrigine 50 mg) 250 mg PO BID [facility] Stop: 06/23/19 08:59 Last Admin: 04/24/19 16:34 Dose: 250 mg Memantine (Namenda) 10 mg PO BID [facility] Stop: 06/23/19 08:59 Last Admin: 04/24/19 16:34 Dose: 10 mg Metoprolol Tartrate (Lopressor) 25 mg PO BID [facility] Stop: 06/23/19 08:59 Last Admin: 04/24/19 16:34 Dose: 25 mg Miscellaneous (Vancomycin Iv Per Pharmacy) 1 ea MC PRN PRN PRN Reason: PROTOCOL Stop: 06/23/19 14:50 Oxcarbazepine (Trileptal) 600 mg PO BID [facility] Stop: 06/23/19 08:59 Last Admin: 04/24/19 16:34 Dose: 600 mg General: Alert, Oriented x3, No acute distress HEENT: Atraumatic, PERRLA, EOMI Neck: Supple Cardiovascular: Regular rate, Normal S1, Normal S2 Abdomen: Bowel sounds, Soft Extremities: Edema (+2 edema) Neurological: Normal gait, Normal speech Skin: Rash (presence of erythema to the lower ext) Assessment/Plan - Assessment Assessment: hyponatremia improving sepsis leukocytosis LLL PNA repeat CXR Rhabdomylosis CK 1065-->474 elevated lactic acid --> 3.4-->1.49 HTN controlled CAD Dyslipidemia Seizure d/o ... neuro consult dementia weakness and fatigue encephalopathy stable CAD lower ext edema ... for doppler U/S venous and arterial - Plan Plan: ID consult Pulmonary consult Neuro consult psychiatric consult repeat CBC,CMP,lipid profile, TSH, CK, Ck-MB, lactic acid continue IV fluids continue IV Zosyn and azithromycin repeat cxr tomorrow
[2019-04-25] MEDS: Aspirin 81mg Chewable Tab PO SCH (08:32)
--- NOTE | 2019-04-25 08:32 | Diagnostic Imaging Report ---
CHEST X-RAY: AP view INDICATION: Congestion COMPARISON: Chest x-ray 04/24/2019 FINDINGS: Chronic lung changes are noted. There is mild elevation of the right hemidiaphragm. Slight increased bibasilar lung markings are noted. Borderline prominent heart is noted. IMPRESSION: No evidence of cherri CHF. Slight increased bibasal lung markings which may be due to atelectatic changes. No focal consolidation identified.
[2019-04-25] MEDS: Vancomycin HCl 1.5 GM in Sodium Chloride 0.9% 500 ML IV SCH ×2 (08:33→21:17)
--- NOTE | 2019-04-25 08:37 | Diagnostic Imaging Report ---
Left lower extremity DVT study HISTORY: Left leg swelling and redness COMPARISON: None Technique: Longitudinal and transverse sonographic images of the left lower extremity veins were obtained with doppler analysis. FINDINGS: There is normal compressibility, augmentation and phasicity of the left common femoral, superficial femoral, popliteal, and posterior tibial veins. No thrombus is visualized. IMPRESSION: No evidence of thrombus within the left lower extremity veins.
--- NOTE | 2019-04-25 09:01 | Infectious Disease Prog Note ---
Infectious Disease Subjective - Review of Systems Service Date: 04/25/19 Subjective: There is no new change, no fever. Infectious Disease Objective - Results Result Diagrams: 04/25/19 05:45 04/25/19 05:45 Recent Labs: Laboratory Last Values WBC 15.0 Th/cmm (4.8-10.8) H 04/25/19 05:45 Corrected WBC (auto) 20.1 Th/cmm 04/23/19 14:25 RBC 4.25 Mil/cmm (3.80-5.80) 04/25/19 05:45 Hgb 13.4 gm/dL (12-16) 04/25/19 05:45 Hct 40.4 % (41.0-60) L 04/25/19 05:45 MCV 95.2 fl (80-99) 04/25/19 05:45 MCH 31.5 pg (27.0-31.0) H 04/25/19 05:45 MCHC Differential 33.1 pg (28.0-36.0) 04/25/19 05:45 RDW 12.9 % (11.5-20.0) 04/25/19 05:45 Plt Count 231 Th/cmm (150-400) 04/25/19 05:45 MPV 7.2 fl 04/25/19 05:45 Add Manual Diff YES 04/25/19 05:45 Band Neutrophils % 0 % (0-10) 04/25/19 05:45 Neutrophils (Manual) 86 % (40-80) H 04/25/19 05:45 Lymphocytes 6 % (20-50) L 04/25/19 05:45 Monocytes 5 % (2-10) 04/25/19 05:45 Eosinophils 3 % (0-5) 04/25/19 05:45 Basophils 0 % (0-3) 04/25/19 05:45 PT 11.6 SECONDS (9.5-11.5) H 04/23/19 14:25 INR 1.13 (0.5-1.4) 04/23/19 14:25 PTT (Actin FS) 28.9 SECONDS (26.0-38.0) 04/23/19 14:25 Sodium 126 mEq/L (136-145) L 04/25/19 05:45 Potassium 3.8 mEq/L (3.5-5.1) 04/25/19 05:45 Chloride 95 mEq/L (98-107) L 04/25/19 05:45 Carbon Dioxide 21.9 mEq/L (21.0-31.0) 04/25/19 05:45 Anion Gap 12.9 (7.0-16.0) 04/25/19 05:45 BUN 11 mg/dL (7-25) 04/25/19 05:45 Creatinine 0.7 mg/dL (0.7-1.3) 04/25/19 05:45 Est GFR ( Amer) > 60.0 ml/min (>90) 04/25/19 05:45 Est GFR (Non-Af Amer) > 60.0 ml/min 04/25/19 05:45 BUN/Creatinine Ratio 15.7 04/25/19 05:45 Glucose 120 mg/dL (70-105) H 04/25/19 05:45 POC Glucose 97 MG/DL (70 - 105) 04/23/19 16:53 Whole Bld Lactic Acid 1.49 mmol/L (0.60-1.99) 04/24/19 06:10 Calcium 8.9 mg/dL (8.6-10.3) 04/25/19 05:45 Total Bilirubin 0.7 mg/dL (0.3-1.0) 04/25/19 05:45 AST 21 U/L (13-39) 04/25/19 05:45 ALT 17 U/L (7-52) 04/25/19 05:45 Alkaline Phosphatase 97 U/L (34-104) 04/25/19 05:45 Creatine Kinase 474 U/L (30-223) H 04/25/19 05:45 CK-MB (CK-2) 1.7 ng/mL (0.6-6.3) 04/25/19 05:45 Troponin I 0.02 ng/mL (0.01-0.05) 04/23/19 14:25 Total Protein 6.4 gm/dL (6.0-8.3) 04/25/19 05:45 Albumin 3.5 gm/dL (4.2-5.5) L 04/25/19 05:45 Globulin 2.9 gm/dL 04/25/19 05:45 Albumin/Globulin Ratio 1.2 (1.0-1.8) 04/25/19 05:45 Triglycerides 65 mg/dL (<150) 04/24/19 06:10 Cholesterol 126 mg/dL (<200) 04/24/19 06:10 LDL Cholesterol Direct 53 mg/dL (75-193) L 04/24/19 06:10 HDL Cholesterol 56 mg/dL (23-92) 04/24/19 06:10 TSH 0.85 uIU/ml (0.34-5.60) 04/24/19 06:10 Prolactin 8.9 ng/mL (4.0-15.2) 04/24/19 06:10 Urine Source MIDSTREAM 04/23/19 15:00 Urine Color YELLOW 04/23/19 15:00 Urine Clarity SLIGHT HAZY (CLEAR) 04/23/19 15:00 Urine pH 5.5 (4.6 - 8.0) 04/23/19 15:00 Ur Specific [place] 1.015 (1.005-1.030) 04/23/19 15:00 Urine Protein >=300 mg/dL (NEGATIVE) 04/23/19 15:00 Urine Glucose (UA) NEGATIVE mg/dL (NEGATIVE) 04/23/19 15:00 Urine Ketones TRACE mg/dL (NEGATIVE) 04/23/19 15:00 Urine Blood LARGE (NEGATIVE) H 04/23/19 15:00 Urine Nitrate NEGATIVE (NEGATIVE) 04/23/19 15:00 Urine Bilirubin NEGATIVE (NEGATIVE) 04/23/19 15:00 Urine Urobilinogen 1.0 E.U./dL (0.2 - 1.0) 04/23/19 15:00 Ur Leukocyte Esterase NEGATIVE (NEGATIVE) 04/23/19 15:00 Urine RBC 2-5 /hpf (0-5) H 04/23/19 15:00 Urine WBC 2-5 /hpf (0-5) 04/23/19 15:00 Ur Epithelial Cells RARE /lpf (FEW) 04/23/19 15:00 Urine Bacteria OCCASIONAL /hpf (NONE SEEN) 04/23/19 15:00 - Physical Exam Vitals and I&O: Vital Signs Temp 98.7 F 04/25/19 08:00 Pulse 95 04/25/19 08:33 Resp 18 04/25/19 08:00 BP 130/75 04/25/19 08:33 Pulse Ox 94 04/25/19 08:00 Intake & Output 04/24/19 04/25/19 04/25/19 18:59 06:59 18:59 Intake Total 1124.583 Balance 1124.583 Weight (lbs) 105.687 kg 105.687 kg Intake: Intake, IV Amount 764.583 Sodium Chloride 0.9% 1, 764.583 000 ml @ 125 mls/hr IV . Q8H [facility] Rx#:[id number] Oral 360 Other: # Voids 2 3 # Bowel Movements 1 Weight Source Bedscale Bedscale Active Medications: Current Medications Amlodipine Besylate (Norvasc) 10 mg PO DAILY [facility] Stop: 06/23/19 08:59 Last Admin: 04/25/19 08:32 Dose: 10 mg Aspirin (Aspirin Chewable) 81 mg PO DAILY [facility] Stop: 06/23/19 08:59 Last Admin: 04/25/19 08:32 Dose: 81 mg Clonazepam (Klonopin) 0.5 mg PO BID [facility]; Protocol Stop: 06/23/19 08:59 Last Admin: 04/25/19 08:32 Dose: 0.5 mg Donepezil HCl (Aricept) 10 mg PO HS [facility] Stop: 06/23/19 20:59 Last Admin: 04/24/19 20:49 Dose: 10 mg Sodium Chloride (Nacl 0.9%) 1,000 mls @ 80 mls/hr IV .[id number] [facility] Stop: 06/23/19 08:44 Last Admin: 04/24/19 20:54 Dose: 80 mls/hr Levofloxacin (Levaquin Pb) 500 mg in 100 mls @ 100 mls/hr IV Q24HR [facility] Stop: 06/23/19 09:59 Last Admin: 04/24/19 10:35 Dose: 100 mls/hr Vancomycin HCl 1.5 gm/ Sodium (Chloride) 500 mls @ 250 mls/hr IV Q12H [facility] Stop: 06/24/19 08:59 Last Admin: 04/25/19 08:33 Dose: 250 mls/hr Lamotrigine 200 mg/ (Lamotrigine 50 mg) 250 mg PO BID [facility] Stop: 06/23/19 08:59 Last Admin: 04/25/19 08:32 Dose: 250 mg Memantine (Namenda) 10 mg PO BID [facility] Stop: 06/23/19 08:59 Last Admin: 04/25/19 08:31 Dose: 10 mg Metoprolol Tartrate (Lopressor) 25 mg PO BID [facility] Stop: 06/23/19 08:59 Last Admin: 04/25/19 08:33 Dose: 25 mg Miscellaneous (Vancomycin Iv Per Pharmacy) 1 ea PRN PRN PRN Reason: PROTOCOL Stop: 06/23/19 14:50 Oxcarbazepine (Trileptal) 600 mg PO BID [facility] Stop: 06/23/19 08:59 Last Admin: 04/25/19 08:32 Dose: 600 mg General: no acute distress, well developed, well nourished HEENT: atraumatic, normocephalic, PERRLA, EOMI Neck: supple, no thyromegaly Cardiovascular: S1S2, regular Lungs: clear to auscultation bilaterally, clear to percussion Abdomen: soft, no tender, no distended Extremities: edema, other (Left leg swelling and redness.), no cyanosis, no clubbing Neurological: awake, alert, oriented Skin: intact Infectious Disease Assmt/Plan - Assessment Assessment: 1. Sepsis. severe sepsis with lactic acidosis. 2. Left leg cellulitis. 3. Susoect Pneumonia. 4. HTN. 5. Rhabdomyolysis. 6. Hyponatremia. 7. Dementia. - Plan Plan: Will continue vanco IV and Zosyn. BRIANA Levaquin.
--- NOTE | 2019-04-25 09:09 | Diagnostic Imaging Report ---
Left lower extremity arterial Doppler study HISTORY: Swollen and red left leg COMPARISON: None Technique: Longitudinal and transverse sonographic images of the left lower extremity arteries were obtained with doppler analysis. FINDINGS: Exam of the left lower extremity demonstrates mild atherosclerotic vascular disease, greatest distally. Biphasic waveforms are seen distally extending from the left superficial femoral artery to the left dorsalis pedis artery. No evidence of occlusion. Left SOURAV is 1.1. IMPRESSION: Mild atherosclerotic vascular disease. No sonographic evidence of occlusion.
--- NOTE | 2019-04-25 11:12 | Consultation ---
DATE OF CONSULTATION: 04/24/2019 PULMONARY CONSULTATION REFERRING PHYSICIAN: Dr. Carrion. Thank you very much Dr. Carrion for this consultation. HISTORY OF PRESENT ILLNESS: This is a 68-year-old male who presented with some cough, fever, chills and congestion. The patient has history of hypertension, dyslipidemia, coronary artery disease, seizures, dementia, and weakness. The patient was admitted for treatment and management. The patient was found to have redness and swelling in the left leg. Started on IV antibiotics and IV fluids. The patient denies any history of lung problems in the past. Denies any history of smoking. Denies any shortness of breath or chest pain at this time. REVIEW OF SYSTEMS: GENERAL: Some weakness and fatigue. CARDIOVASCULAR: No chest pain or palpation. RESPIRATORY: No shortness of breath. Congestion and cough earlier. GASTROINTESTINAL: No nausea or vomiting. PHYSICAL EXAMINATION: GENERAL: He is awake, alert, not in acute distress. VITAL SIGNS: Temperature is 98.1, pulse 81, respirations 19, blood pressure 120/70, and saturation 98% on room air. HEENT: Atraumatic, normocephalic. Pupils are react to light and accommodation. Ears, nose and throat are normal. NECK: Supple. No JVD. CHEST: There are good breath sounds bilaterally. No wheezing or crackles. HEART: Regular rate and rhythm. ABDOMEN: Soft. EXTREMITIES: Positive edema, 2+ on the left with erythema. LABORATORY DATA: WBC is 18.1, hemoglobin 12.8, hematocrit 39.4, and platelets 214. Sodium 123, potassium 4.1, BUN 16, creatinine 1.1. Lactic acid is coming down from 3.41 to 2.13. Chest x-ray: No acute infiltrate. IMPRESSION: 1. This is a 68-year-old male with possible early bronchitis. 2. Cellulitis. 3. Sepsis. 4. Weakness. 5. Hyponatremia. PLAN: 1. IV fluids and normal saline. 2. Antibiotics. 3. ____ from anti-seizure medications observed. Follow up labs. I will follow the patient with you. Thank you very much for this consultation. JOB# [id number]
[2019-04-25] MEDS: Sodium Chloride 0.9% 1,000 ML IV SCH (21:17)
--- NOTE | 2019-04-26 07:43 | General Progress Note ---
Subjective - Review of Systems Service Date: 04/26/19 Subjective: Patient is feeling better. No acute distress. more awake alert. Patient doing well. Objective - Results Result Diagrams: 04/25/19 05:45 04/25/19 05:45 Recent Labs: Laboratory Last Values WBC 15.0 Th/cmm (4.8-10.8) H 04/25/19 05:45 Corrected WBC (auto) 20.1 Th/cmm 04/23/19 14:25 RBC 4.25 Mil/cmm (3.80-5.80) 04/25/19 05:45 Hgb 13.4 gm/dL (12-16) 04/25/19 05:45 Hct 40.4 % (41.0-60) L 04/25/19 05:45 MCV 95.2 fl (80-99) 04/25/19 05:45 MCH 31.5 pg (27.0-31.0) H 04/25/19 05:45 MCHC Differential 33.1 pg (28.0-36.0) 04/25/19 05:45 RDW 12.9 % (11.5-20.0) 04/25/19 05:45 Plt Count 231 Th/cmm (150-400) 04/25/19 05:45 MPV 7.2 fl 04/25/19 05:45 Add Manual Diff YES 04/25/19 05:45 Band Neutrophils % 0 % (0-10) 04/25/19 05:45 Neutrophils (Manual) 86 % (40-80) H 04/25/19 05:45 Lymphocytes 6 % (20-50) L 04/25/19 05:45 Monocytes 5 % (2-10) 04/25/19 05:45 Eosinophils 3 % (0-5) 04/25/19 05:45 Basophils 0 % (0-3) 04/25/19 05:45 PT 11.6 SECONDS (9.5-11.5) H 04/23/19 14:25 INR 1.13 (0.5-1.4) 04/23/19 14:25 PTT (Actin FS) 28.9 SECONDS (26.0-38.0) 04/23/19 14:25 Sodium 126 mEq/L (136-145) L 04/25/19 05:45 Potassium 3.8 mEq/L (3.5-5.1) 04/25/19 05:45 Chloride 95 mEq/L (98-107) L 04/25/19 05:45 Carbon Dioxide 21.9 mEq/L (21.0-31.0) 04/25/19 05:45 Anion Gap 12.9 (7.0-16.0) 04/25/19 05:45 BUN 11 mg/dL (7-25) 04/25/19 05:45 Creatinine 0.7 mg/dL (0.7-1.3) 04/25/19 05:45 Est GFR ( Amer) > 60.0 ml/min (>90) 04/25/19 05:45 Est GFR (Non-Af Amer) > 60.0 ml/min 04/25/19 05:45 BUN/Creatinine Ratio 15.7 04/25/19 05:45 Glucose 120 mg/dL (70-105) H 04/25/19 05:45 POC Glucose 97 MG/DL (70 - 105) 04/23/19 16:53 Whole Bld Lactic Acid 1.49 mmol/L (0.60-1.99) 04/24/19 06:10 Calcium 8.9 mg/dL (8.6-10.3) 04/25/19 05:45 Total Bilirubin 0.7 mg/dL (0.3-1.0) 04/25/19 05:45 AST 21 U/L (13-39) 04/25/19 05:45 ALT 17 U/L (7-52) 04/25/19 05:45 Alkaline Phosphatase 97 U/L (34-104) 04/25/19 05:45 Creatine Kinase 474 U/L (30-223) H 04/25/19 05:45 CK-MB (CK-2) 1.2 ng/mL (0.6-6.3) 04/25/19 05:45 Troponin I 0.02 ng/mL (0.01-0.05) 04/23/19 14:25 Total Protein 6.4 gm/dL (6.0-8.3) 04/25/19 05:45 Albumin 3.5 gm/dL (4.2-5.5) L 04/25/19 05:45 Globulin 2.9 gm/dL 04/25/19 05:45 Albumin/Globulin Ratio 1.2 (1.0-1.8) 04/25/19 05:45 Triglycerides 65 mg/dL (<150) 04/24/19 06:10 Cholesterol 126 mg/dL (<200) 04/24/19 06:10 LDL Cholesterol Direct 53 mg/dL (75-193) L 04/24/19 06:10 HDL Cholesterol 56 mg/dL (23-92) 04/24/19 06:10 TSH 0.85 uIU/ml (0.34-5.60) 04/24/19 06:10 Prolactin 8.9 ng/mL (4.0-15.2) 04/24/19 06:10 Urine Source MIDSTREAM 04/23/19 15:00 Urine Color YELLOW 04/23/19 15:00 Urine Clarity SLIGHT HAZY (CLEAR) 04/23/19 15:00 Urine pH 5.5 (4.6 - 8.0) 04/23/19 15:00 Ur Specific [place] 1.015 (1.005-1.030) 04/23/19 15:00 Urine Protein >=300 mg/dL (NEGATIVE) 04/23/19 15:00 Urine Glucose (UA) NEGATIVE mg/dL (NEGATIVE) 04/23/19 15:00 Urine Ketones TRACE mg/dL (NEGATIVE) 04/23/19 15:00 Urine Blood LARGE (NEGATIVE) H 04/23/19 15:00 Urine Nitrate NEGATIVE (NEGATIVE) 04/23/19 15:00 Urine Bilirubin NEGATIVE (NEGATIVE) 04/23/19 15:00 Urine Urobilinogen 1.0 E.U./dL (0.2 - 1.0) 04/23/19 15:00 Ur Leukocyte Esterase NEGATIVE (NEGATIVE) 04/23/19 15:00 Urine RBC 2-5 /hpf (0-5) H 04/23/19 15:00 Urine WBC 2-5 /hpf (0-5) 04/23/19 15:00 Ur Epithelial Cells RARE /lpf (FEW) 04/23/19 15:00 Urine Bacteria OCCASIONAL /hpf (NONE SEEN) 04/23/19 15:00 - Physical Exam Vitals and I&O: Vital Signs Temp 98.5 F 04/26/19 03:34 Pulse 88 04/26/19 03:34 Resp 19 04/26/19 05:00 BP 123/54 04/26/19 03:34 Pulse Ox 96 04/26/19 03:34 Intake & Output 04/25/19 04/26/19 04/26/19 18:59 06:59 18:59 Intake Total 2200 50 Output Total 2 Balance 2200 48 Weight (lbs) 108.862 kg 108.862 kg Intake: Intake, IV Amount 1500 Sodium Chloride 0.9% 1, 1000 000 ml @ 80 mls/hr IV . [id number] [facility] Rx#:[id number] Vancomycin HCl 1.5 gm In 500 Sodium Chloride 0.9% 500 ml @ 250 mls/hr IV Q12H [facility] Rx#:[id number] Oral 700 50 Output: Urine 2 Other: # Voids 2 3 # Bowel Movements 0 1 Weight Source Bedscale Bedscale Active Medications: Current Medications Amlodipine Besylate (Norvasc) 10 mg PO DAILY [facility] Stop: 06/23/19 08:59 Last Admin: 04/25/19 08:32 Dose: 10 mg Aspirin (Aspirin Chewable) 81 mg PO DAILY [facility] Stop: 06/23/19 08:59 Last Admin: 04/25/19 08:32 Dose: 81 mg Clonazepam (Klonopin) 0.5 mg PO BID [facility]; Protocol Stop: 06/23/19 08:59 Last Admin: 04/25/19 16:40 Dose: 0.5 mg Docusate Sodium (Colace) 250 mg PO DAILY [facility] Stop: 06/24/19 20:59 Last Admin: 04/25/19 21:16 Dose: 250 mg Donepezil HCl (Aricept) 10 mg PO HS [facility] Stop: 06/23/19 20:59 Last Admin: 04/25/19 21:16 Dose: 10 mg Sodium Chloride (Nacl 0.9%) 1,000 mls @ 80 mls/hr IV .[id number] [facility] Stop: 06/23/19 08:44 Last Admin: 04/25/19 21:17 Dose: 80 mls/hr Vancomycin HCl 1.5 gm/ Sodium (Chloride) 500 mls @ 250 mls/hr IV Q12H [facility] Stop: 06/24/19 08:59 Last Admin: 04/25/19 21:17 Dose: 250 mls/hr Lamotrigine 200 mg/ (Lamotrigine 50 mg) 250 mg PO BID [facility] Stop: 06/23/19 08:59 Last Admin: 04/25/19 16:40 Dose: 250 mg Memantine (Namenda) 10 mg PO BID [facility] Stop: 06/23/19 08:59 Last Admin: 04/25/19 16:40 Dose: 10 mg Metoprolol Tartrate (Lopressor) 25 mg PO BID [facility] Stop: 06/23/19 08:59 Last Admin: 04/25/19 16:40 Dose: 25 mg Miscellaneous (Vancomycin Iv Per Pharmacy) 1 ea PRN PRN PRN Reason: PROTOCOL Stop: 06/23/19 14:50 Oxcarbazepine (Trileptal) 600 mg PO BID [facility] Stop: 06/23/19 08:59 Last Admin: 04/25/19 16:40 Dose: 600 mg General: Alert, Oriented x3, No acute distress HEENT: Atraumatic, PERRLA, EOMI Neck: Supple Cardiovascular: Regular rate, Normal S1, Normal S2 Abdomen: Bowel sounds, Soft Extremities: Edema (+2 edema) Neurological: Normal gait, Normal speech Skin: Rash (presence of erythema to the lower ext) Assessment/Plan - Assessment Assessment: hyponatremia improving sepsis leukocytosis cellulitis to the lower extremities LLL PNA repeat CXR Rhabdomylosis CK 1065-->474 elevated lactic acid --> 3.4-->1.49 HTN controlled CAD Dyslipidemia Seizure d/o ... neuro consult dementia weakness and fatigue encephalopathy stable CAD lower ext edema ... for doppler U/S venous and arterial - Plan Plan: ID consult Pulmonary consult Neuro consult psychiatric consult repeat CBC,CMP,lipid profile, TSH, CK, Ck-MB, lactic acid continue IV fluids continue IV Zosyn and azithromycin repeat cxr tomorrow Nutritional Asmnt/Malnutr-PDOC - Dietary Evaluation Malnutrition Findings (Please click <Entered> for more info): Nutritional Asmnt/Malnutrition Start: 04/25/19 19: 05 Text: Status: Active Freq: Protocol: Document 04/25/19 19:05 PATRICK (Rec: 04/25/19 19:14 PATRICK [id number]) Nutritional Asmnt/Malnutrition Patient General Information Nutritional Screening High Risk Diagnosis SEPSIS, PNA, HYPONATREMIA Pertinent Medical Hx/Surgical Hx HTN, CAD, DYSLIPIDEMIA, SEIZURE DISORDER, DEMENTIA, WEAKNESS, ENCEPHALOPATHY Subjective Information VISITED PT TODAT DURING LUNCH, ENJOYING MEAL, PT STATED HE WAS ENJOYING FOODS PROVIDED, NO ADDITIONAL REQUESTS NURSING NOTED INTAKE 100-100- 100% HIGH NUTRITION RISK SCREENING DUE TO LOW TREASURE SCORE, PER WOUND CARE NURSE ASSESSMENT: "Skin assessment: 1. Left lower extremity: Edema (1+ pitting), and erythema, present on admission . 2. Bilateral lower extremities Edema (1+ pitting), present on admission. Recommend: No dressings needed . Continue to monitor sites every shift. Elevate bilateral lower extremities as tolerated for at least 20 minutes, twice a day 3. Sacral/Buttocks areas: Blanchable redness from IAD, present on admission. Recommend: Cleanse involved areas with mild soap and water . Pat dry. Apply moisture barrier cream to involved areas. Perform site care 4 times a day, and as needed for soiling. 4. Nose: Scab from chronic wound, present on admission. No odor, no drainage. Recommend: No dressing needed. Continue to monitor site every shift." DECREASED NUTRITION RISK TO LOW DUE TO INTACT SKIN, APPROPRIATE INTAKE Current Diet Order/ Nutrition Support [facility] SO[facility] Patient / S.O Can Pertinent Medications COLACE, LOPRESSOR Pertinent Labs WBC 15, HGB/HCT 13.4/40.4, NA 126, GLUC 120, ALB 3.5 Nutritional Hx/Data Height 1.73 m Height (Calculated Centimeters) 172.7 Current Weight (lbs) 108.862 kg Weight (Calculated Kilograms) 108.9 Weight (Calculated Grams) 533477.2 [place] Body Weight 154 LBS % [place] Body Weight 156 Body Mass Index (BMI) 36.5 Weight Status Obese GI Symptoms GI Symptoms None Last BM TODAY X1 Skin Integrity/Comment: TREASURE SCORE 12 Current %PO Good (75-100%) Estimated Nutritional Goals BEE in Kcals: Adj wt of IBW Calories/Kcals/Kg 25-30 Kcals Calculated 5041-3947 KCAL/DAY Protein: Adj wt of IBW Protein g/k.8-1 Protein Calculated 79-99 Fluid: ml 2.5-3 (1 ML/KCAL) Nutritional Problem 1. Problem Problem OVERWEIGHT/OBESE Etiology NUTRIENT OVERCONSUMPTION Signs/Symptoms: BMI 35.4 Intervention/Recommendation Comments CONTINUE CURRENT DIET, DUE TO CURRENT ILLNESS AND CONCERN FOR IMPROVED SKIN INTEGRITY, CALORIE RESTRICTION IS NOT RECOMMENDED Expected Outcomes/Goals Expected Outcomes/Goals PT TO CONSUME 75-100% NUTRIENT NEEDS DAILY RD TO F/UP IN 7 DAYS, MONITOR INTAKE, WEIGHT, SKIN INTEGRITY , LABS EVELIO MAY RD
[2019-04-26 07:59] LABS: HEMATOCRIT 37.5 % (41.0-60); HEMOGLOBIN 12.5 gm/dL (12-16); MEAN CELL VOLUME 94.9 fl (80-99); MEAN CORPUSCULAR HEMOGLOBIN 31.7 pg (27.0-31.0); MEAN CORPUSCULAR HGB CONC 33.4 pg (28.0-36.0); PLATELET COUNT 248 Th/cmm (150-400); RED BLOOD COUNT 3.95 Mil/cmm (3.80-5.80); RED CELL DISTRIBUTION WIDTH 12.7 % (11.5-20.0); WHITE BLOOD COUNT 12.9 Th/cmm (4.8-10.8)
[2019-04-26] MEDS: Aspirin 81mg Chewable Tab PO SCH (08:12)
--- NOTE | 2019-04-26 08:31 | Diagnostic Imaging Report ---
KUB single view HISTORY: Abdominal distention COMPARISON: None FINDINGS: Moderate stool is noted with gas-filled loops of bowel in the overall nonspecific bowel gas pattern. There is elevation of the right hemidiaphragm. Degenerative changes of spine are noted. IMPRESSION: Moderate stool. Overall the bowel gas pattern is nonspecific. Mild constipation may be considered. Please correlate clinically.
[2019-04-26 08:38] LABS: BAND NEUTROPHILE 1 % (0-10); BASOPHIL 0 % (0-3); EOSINOPHIL 0 % (0-5); LYMPHOCYTE 6 % (20-50); MONOCYTE 6 % (2-10); NEUTROPHILS 87 % (40-80)
[2019-04-26 08:48] LABS: ANION GAP 10.5 (7.0-16.0); BUN - UREA NITROGEN 12 mg/dL (7-25); CALCIUM SERUM 8.9 mg/dL (8.6-10.3); CARBON DIOXIDE 23.9 mEq/L (21.0-31.0); CHLORIDE 96 mEq/L (98-107); CREATININE - SERUM 0.7 mg/dL (0.7-1.3); CREATININE KINASE 167 U/L (30-223); GFR AFRICAN-AMERICAN > 60.0 ml/min (>90); GFR NON AFRICAN-AMERICAN > 60.0 ml/min; GLUCOSE 107 mg/dL (70-105); POTASSIUM SERUM 3.4 mEq/L (3.5-5.1); SODIUM SERUM 127 mEq/L (136-145)
[2019-04-26] MEDS: Vancomycin HCl 1.5 GM in Sodium Chloride 0.9% 500 ML IV SCH (09:03)
--- NOTE | 2019-04-26 10:18 | Infectious Disease Prog Note ---
Infectious Disease Subjective - Review of Systems Service Date: 04/26/19 Subjective: There is no new change, no fever. Infectious Disease Objective - Results Result Diagrams: 04/26/19 08:00 04/26/19 08:00 Recent Labs: Laboratory Last Values WBC 12.9 Th/cmm (4.8-10.8) H 04/26/19 08:00 Corrected WBC (auto) 20.1 Th/cmm 04/23/19 14:25 RBC 3.95 Mil/cmm (3.80-5.80) 04/26/19 08:00 Hgb 12.5 gm/dL (12-16) 04/26/19 08:00 Hct 37.5 % (41.0-60) L 04/26/19 08:00 MCV 94.9 fl (80-99) 04/26/19 08:00 MCH 31.7 pg (27.0-31.0) H 04/26/19 08:00 MCHC Differential 33.4 pg (28.0-36.0) 04/26/19 08:00 RDW 12.7 % (11.5-20.0) 04/26/19 08:00 Plt Count 248 Th/cmm (150-400) 04/26/19 08:00 MPV 7.0 fl 04/26/19 08:00 Add Manual Diff YES 04/26/19 08:00 Band Neutrophils % 1 % (0-10) 04/26/19 08:00 Neutrophils (Manual) 87 % (40-80) H 04/26/19 08:00 Lymphocytes 6 % (20-50) L 04/26/19 08:00 Monocytes 6 % (2-10) 04/26/19 08:00 Eosinophils 0 % (0-5) 04/26/19 08:00 Basophils 0 % (0-3) 04/26/19 08:00 PT 11.6 SECONDS (9.5-11.5) H 04/23/19 14:25 INR 1.13 (0.5-1.4) 04/23/19 14:25 PTT (Actin FS) 28.9 SECONDS (26.0-38.0) 04/23/19 14:25 Sodium 127 mEq/L (136-145) L 04/26/19 08:00 Potassium 3.4 mEq/L (3.5-5.1) L 04/26/19 08:00 Chloride 96 mEq/L (98-107) L 04/26/19 08:00 Carbon Dioxide 23.9 mEq/L (21.0-31.0) 04/26/19 08:00 Anion Gap 10.5 (7.0-16.0) 04/26/19 08:00 BUN 12 mg/dL (7-25) 04/26/19 08:00 Creatinine 0.7 mg/dL (0.7-1.3) 04/26/19 08:00 Est GFR ( Amer) > 60.0 ml/min (>90) 04/26/19 08:00 Est GFR (Non-Af Amer) > 60.0 ml/min 04/26/19 08:00 BUN/Creatinine Ratio 17.1 04/26/19 08:00 Glucose 107 mg/dL (70-105) H 04/26/19 08:00 POC Glucose 97 MG/DL (70 - 105) 04/23/19 16:53 Whole Bld Lactic Acid 1.49 mmol/L (0.60-1.99) 04/24/19 06:10 Calcium 8.9 mg/dL (8.6-10.3) 04/26/19 08:00 Total Bilirubin 0.7 mg/dL (0.3-1.0) 04/25/19 05:45 AST 21 U/L (13-39) 04/25/19 05:45 ALT 17 U/L (7-52) 04/25/19 05:45 Alkaline Phosphatase 97 U/L (34-104) 04/25/19 05:45 Creatine Kinase 167 U/L (30-223) 04/26/19 08:00 CK-MB (CK-2) 1.2 ng/mL (0.6-6.3) 04/25/19 05:45 Troponin I 0.02 ng/mL (0.01-0.05) 04/23/19 14:25 Total Protein 6.4 gm/dL (6.0-8.3) 04/25/19 05:45 Albumin 3.5 gm/dL (4.2-5.5) L 04/25/19 05:45 Globulin 2.9 gm/dL 04/25/19 05:45 Albumin/Globulin Ratio 1.2 (1.0-1.8) 04/25/19 05:45 Triglycerides 65 mg/dL (<150) 04/24/19 06:10 Cholesterol 126 mg/dL (<200) 04/24/19 06:10 LDL Cholesterol Direct 53 mg/dL (75-193) L 04/24/19 06:10 HDL Cholesterol 56 mg/dL (23-92) 04/24/19 06:10 TSH 0.85 uIU/ml (0.34-5.60) 04/24/19 06:10 Prolactin 8.9 ng/mL (4.0-15.2) 04/24/19 06:10 Urine Source MIDSTREAM 04/23/19 15:00 Urine Color YELLOW 04/23/19 15:00 Urine Clarity SLIGHT HAZY (CLEAR) 04/23/19 15:00 Urine pH 5.5 (4.6 - 8.0) 04/23/19 15:00 Ur Specific [place] 1.015 (1.005-1.030) 04/23/19 15:00 Urine Protein >=300 mg/dL (NEGATIVE) 04/23/19 15:00 Urine Glucose (UA) NEGATIVE mg/dL (NEGATIVE) 04/23/19 15:00 Urine Ketones TRACE mg/dL (NEGATIVE) 04/23/19 15:00 Urine Blood LARGE (NEGATIVE) H 04/23/19 15:00 Urine Nitrate NEGATIVE (NEGATIVE) 04/23/19 15:00 Urine Bilirubin NEGATIVE (NEGATIVE) 04/23/19 15:00 Urine Urobilinogen 1.0 E.U./dL (0.2 - 1.0) 04/23/19 15:00 Ur Leukocyte Esterase NEGATIVE (NEGATIVE) 04/23/19 15:00 Urine RBC 2-5 /hpf (0-5) H 04/23/19 15:00 Urine WBC 2-5 /hpf (0-5) 04/23/19 15:00 Ur Epithelial Cells RARE /lpf (FEW) 04/23/19 15:00 Urine Bacteria OCCASIONAL /hpf (NONE SEEN) 04/23/19 15:00 Vancomycin Trough 9.2 ug/mL (5-10) 04/26/19 08:00 - Physical Exam Vitals and I&O: Vital Signs Temp 98.8 F 04/26/19 07:59 Pulse 90 04/26/19 08:20 Resp 19 04/26/19 09:00 BP 123/69 04/26/19 08:20 Pulse Ox 97 04/26/19 07:59 Intake & Output 04/25/19 04/26/19 04/26/19 18:59 06:59 18:59 Intake Total 2200 550 Output Total 2 Balance 2200 548 Weight (lbs) 108.862 kg 108.862 kg Intake: Intake, IV Amount 1500 500 Sodium Chloride 0.9% 1, 1000 000 ml @ 80 mls/hr IV . [id number] [facility] Rx#:[id number] Vancomycin HCl 1.5 gm In 500 500 Sodium Chloride 0.9% 500 ml @ 250 mls/hr IV Q12H [facility] Rx#:[id number] Oral 700 50 Output: Urine 2 Other: # Voids 2 3 # Bowel Movements 0 1 Weight Source Bedscale Bedscale Active Medications: Current Medications Amlodipine Besylate (Norvasc) 10 mg PO DAILY [facility] Stop: 06/23/19 08:59 Last Admin: 04/26/19 08:20 Dose: 10 mg Aspirin (Aspirin Chewable) 81 mg PO DAILY [facility] Stop: 06/23/19 08:59 Last Admin: 04/26/19 08:12 Dose: 81 mg Clonazepam (Klonopin) 0.5 mg PO BID [facility]; Protocol Stop: 06/23/19 08:59 Last Admin: 04/26/19 08:11 Dose: 0.5 mg Docusate Sodium (Colace) 250 mg PO DAILY [facility] Stop: 06/24/19 20:59 Last Admin: 04/26/19 08:11 Dose: 250 mg Donepezil HCl (Aricept) 10 mg PO [facility] Stop: 06/23/19 20:59 Last Admin: 04/25/19 21:16 Dose: 10 mg Sodium Chloride (Nacl 0.9%) 1,000 mls @ 80 mls/hr IV .[id number] [facility] Stop: 06/23/19 08:44 Last Admin: 04/25/19 21:17 Dose: 80 mls/hr Vancomycin HCl 1.5 gm/ Sodium (Chloride) 500 mls @ 250 mls/hr IV Q12H [facility] Stop: 06/24/19 08:59 Last Admin: 04/26/19 09:03 Dose: 250 mls/hr Lamotrigine 200 mg/ (Lamotrigine 50 mg) 250 mg PO BID [facility] Stop: 06/23/19 08:59 Last Admin: 04/26/19 08:12 Dose: 250 mg Memantine (Namenda) 10 mg PO BID [facility] Stop: 06/23/19 08:59 Last Admin: 04/26/19 08:13 Dose: 10 mg Metoprolol Tartrate (Lopressor) 25 mg PO BID [facility] Stop: 06/23/19 08:59 Last Admin: 04/26/19 08:12 Dose: 25 mg Miscellaneous (Vancomycin Iv Per Pharmacy) 1 [facility] PRN PRN PRN Reason: PROTOCOL Stop: 06/23/19 14:50 Oxcarbazepine (Trileptal) 600 mg PO BID [facility] Stop: 06/23/19 08:59 Last Admin: 04/26/19 08:11 Dose: 600 mg General: no acute distress, well developed, well nourished HEENT: atraumatic, normocephalic, PERRLA Neck: supple, no thyromegaly, no lymphadenopathy Cardiovascular: S1S2, regular Lungs: clear to auscultation bilaterally, clear to percussion Abdomen: soft, no tender, no distended, no mass, no hepatomegaly Extremities: other (Left leg swelling and redness improving), no cyanosis, no clubbing, no edema Infectious Disease Assmt/Plan - Assessment Assessment: 1. Sepsis. severe sepsis with lactic acidosis. 2. Left leg cellulitis. 3. Susoect Pneumonia. 4. HTN. 5. Rhabdomyolysis. 6. Hyponatremia. 7. Dementia. - Plan Plan: Will continue vanco IV and Zosyn. Nutritional Asmnt/Malnutr-PDOC - Dietary Evaluation Malnutrition Findings (Please click <Entered> for more info): Nutritional Asmnt/Malnutrition Start: 04/25/19 19: 05 Text: Status: Active Freq: Protocol: Document 04/25/19 19:05 PATRICK (Rec: 04/25/19 19:14 PATRICK [id number]) Nutritional Asmnt/Malnutrition Patient General Information Nutritional Screening High Risk Diagnosis SEPSIS, PNA, HYPONATREMIA Pertinent Medical Hx/Surgical Hx HTN, CAD, DYSLIPIDEMIA, SEIZURE DISORDER, DEMENTIA, WEAKNESS, ENCEPHALOPATHY Subjective Information VISITED PT TODAT DURING LUNCH, ENJOYING MEAL, PT STATED HE WAS ENJOYING FOODS PROVIDED, NO ADDITIONAL REQUESTS NURSING NOTED INTAKE 100-100- 100% HIGH NUTRITION RISK SCREENING DUE TO LOW TREASURE SCORE, PER WOUND CARE NURSE ASSESSMENT: "Skin assessment: 1. Left lower extremity: Edema (1+ pitting), and erythema, present on admission . 2. Bilateral lower extremities Edema (1+ pitting), present on admission. Recommend: No dressings needed . Continue to monitor sites every shift. Elevate bilateral lower extremities as tolerated for at least 20 minutes, twice a day 3. Sacral/Buttocks areas: Blanchable redness from IAD, present on admission. Recommend: Cleanse involved areas with mild soap and water . Pat dry. Apply moisture barrier cream to involved areas. Perform site care 4 times a day, and as needed for soiling. 4. Nose: Scab from chronic wound, present on admission. No odor, no drainage. Recommend: No dressing needed. Continue to monitor site every shift." DECREASED NUTRITION RISK TO LOW DUE TO INTACT SKIN, APPROPRIATE INTAKE Current Diet Order/ Nutrition Support [facility] SO[facility] Patient / S.O Can Pertinent Medications COLACE, LOPRESSOR Pertinent Labs WBC 15, HGB/HCT 13.4/40.4, NA 126, GLUC 120, ALB 3.5 Nutritional Hx/Data Height 1.73 m Height (Calculated Centimeters) 172.7 Current Weight (lbs) 108.862 kg Weight (Calculated Kilograms) 108.9 Weight (Calculated Grams) 344824.2 [place] Body Weight 154 LBS % [place] Body Weight 156 Body Mass Index (BMI) 36.5 Weight Status Obese GI Symptoms GI Symptoms None Last BM TODAY X1 Skin Integrity/Comment: TREASURE SCORE 12 Current %PO Good (75-100%) Estimated Nutritional Goals BEE in Kcals: Adj wt of IBW Calories/Kcals/Kg 25-30 Kcals Calculated 7223-1487 KCAL/DAY Protein: Adj wt of IBW Protein g/k.8-1 Protein Calculated 79-99 Fluid: ml 2.5-3 (1 ML/KCAL) Nutritional Problem 1. Problem Problem OVERWEIGHT/OBESE Etiology NUTRIENT OVERCONSUMPTION Signs/Symptoms: BMI 35.4 Intervention/Recommendation Comments CONTINUE CURRENT DIET, DUE TO CURRENT ILLNESS AND CONCERN FOR IMPROVED SKIN INTEGRITY, CALORIE RESTRICTION IS NOT RECOMMENDED Expected Outcomes/Goals Expected Outcomes/Goals PT TO CONSUME 75-100% NUTRIENT NEEDS DAILY RD TO F/UP IN 7 DAYS, MONITOR INTAKE, WEIGHT, SKIN INTEGRITY , LABS EVELIO MAY, GABRIELLE
[2019-04-26] MEDS ORDERED: Potassium Chloride 20 mEq ER Tab PO ONE (11:42)
[2019-04-26] MEDS: Sodium Chloride 0.9% 1,000 ML IV SCH (12:03)
[2019-04-26] MEDS: SODIUM CHLORIDE 0.9% IV SCH (20:46)
[2019-04-26] MEDS: VANCOMYCIN HCL IV SCH (20:46)
--- NOTE | 2019-04-27 05:20 | General Progress Note ---
Subjective - Review of Systems Service Date: 04/27/19 Subjective: Patient is feeling better.Awake, alert, afebrile. lower ext edema noted to the lower extremities. Venous and Arterial doppler negative Objective - Results Result Diagrams: 04/26/19 08:00 04/26/19 08:00 Recent Labs: Laboratory Last Values WBC 12.9 Th/cmm (4.8-10.8) H 04/26/19 08:00 Corrected WBC (auto) 20.1 Th/cmm 04/23/19 14:25 RBC 3.95 Mil/cmm (3.80-5.80) 04/26/19 08:00 Hgb 12.5 gm/dL (12-16) 04/26/19 08:00 Hct 37.5 % (41.0-60) L 04/26/19 08:00 MCV 94.9 fl (80-99) 04/26/19 08:00 MCH 31.7 pg (27.0-31.0) H 04/26/19 08:00 MCHC Differential 33.4 pg (28.0-36.0) 04/26/19 08:00 RDW 12.7 % (11.5-20.0) 04/26/19 08:00 Plt Count 248 Th/cmm (150-400) 04/26/19 08:00 MPV 7.0 fl 04/26/19 08:00 Add Manual Diff YES 04/26/19 08:00 Band Neutrophils % 1 % (0-10) 04/26/19 08:00 Neutrophils (Manual) 87 % (40-80) H 04/26/19 08:00 Lymphocytes 6 % (20-50) L 04/26/19 08:00 Monocytes 6 % (2-10) 04/26/19 08:00 Eosinophils 0 % (0-5) 04/26/19 08:00 Basophils 0 % (0-3) 04/26/19 08:00 PT 11.6 SECONDS (9.5-11.5) H 04/23/19 14:25 INR 1.13 (0.5-1.4) 04/23/19 14:25 PTT (Actin FS) 28.9 SECONDS (26.0-38.0) 04/23/19 14:25 Sodium 127 mEq/L (136-145) L 04/26/19 08:00 Potassium 3.4 mEq/L (3.5-5.1) L 04/26/19 08:00 Chloride 96 mEq/L (98-107) L 04/26/19 08:00 Carbon Dioxide 23.9 mEq/L (21.0-31.0) 04/26/19 08:00 Anion Gap 10.5 (7.0-16.0) 04/26/19 08:00 BUN 12 mg/dL (7-25) 04/26/19 08:00 Creatinine 0.7 mg/dL (0.7-1.3) 04/26/19 08:00 Est GFR ( Amer) > 60.0 ml/min (>90) 04/26/19 08:00 Est GFR (Non-Af Amer) > 60.0 ml/min 04/26/19 08:00 BUN/Creatinine Ratio 17.1 04/26/19 08:00 Glucose 107 mg/dL (70-105) H 04/26/19 08:00 POC Glucose 97 MG/DL (70 - 105) 04/23/19 16:53 Whole Bld Lactic Acid 1.49 mmol/L (0.60-1.99) 04/24/19 06:10 Uric Acid 2.0 mg/dL (4.4-7.6) L 04/26/19 08:00 Calcium 8.9 mg/dL (8.6-10.3) 04/26/19 08:00 Total Bilirubin 0.7 mg/dL (0.3-1.0) 04/25/19 05:45 AST 21 U/L (13-39) 04/25/19 05:45 ALT 17 U/L (7-52) 04/25/19 05:45 Alkaline Phosphatase 97 U/L (34-104) 04/25/19 05:45 Creatine Kinase 167 U/L (30-223) 04/26/19 08:00 CK-MB (CK-2) 1.2 ng/mL (0.6-6.3) 04/25/19 05:45 Troponin I 0.02 ng/mL (0.01-0.05) 04/23/19 14:25 Total Protein 6.4 gm/dL (6.0-8.3) 04/25/19 05:45 Albumin 3.5 gm/dL (4.2-5.5) L 04/25/19 05:45 Globulin 2.9 gm/dL 04/25/19 05:45 Albumin/Globulin Ratio 1.2 (1.0-1.8) 04/25/19 05:45 Triglycerides 65 mg/dL (<150) 04/24/19 06:10 Cholesterol 126 mg/dL (<200) 04/24/19 06:10 LDL Cholesterol Direct 53 mg/dL (75-193) L 04/24/19 06:10 HDL Cholesterol 56 mg/dL (23-92) 04/24/19 06:10 TSH 0.85 uIU/ml (0.34-5.60) 04/24/19 06:10 Prolactin 8.9 ng/mL (4.0-15.2) 04/24/19 06:10 Urine Source MIDSTREAM 04/23/19 15:00 Urine Color YELLOW 04/23/19 15:00 Urine Clarity SLIGHT HAZY (CLEAR) 04/23/19 15:00 Urine pH 5.5 (4.6 - 8.0) 04/23/19 15:00 Ur Specific [place] 1.015 (1.005-1.030) 04/23/19 15:00 Urine Protein >=300 mg/dL (NEGATIVE) 04/23/19 15:00 Urine Glucose (UA) NEGATIVE mg/dL (NEGATIVE) 04/23/19 15:00 Urine Ketones TRACE mg/dL (NEGATIVE) 04/23/19 15:00 Urine Blood LARGE (NEGATIVE) H 04/23/19 15:00 Urine Nitrate NEGATIVE (NEGATIVE) 04/23/19 15:00 Urine Bilirubin NEGATIVE (NEGATIVE) 04/23/19 15:00 Urine Urobilinogen 1.0 E.U./dL (0.2 - 1.0) 04/23/19 15:00 Ur Leukocyte Esterase NEGATIVE (NEGATIVE) 04/23/19 15:00 Urine RBC 2-5 /hpf (0-5) H 04/23/19 15:00 Urine WBC 2-5 /hpf (0-5) 04/23/19 15:00 Ur Epithelial Cells RARE /lpf (FEW) 04/23/19 15:00 Urine Bacteria OCCASIONAL /hpf (NONE SEEN) 04/23/19 15:00 Vancomycin Trough 9.2 ug/mL (5-10) 04/26/19 08:00 - Physical Exam Vitals and I&O: Vital Signs Temp 98.4 F 04/27/19 04:00 Pulse 91 04/27/19 04:00 Resp 18 04/27/19 04:00 BP 118/68 04/27/19 04:00 Pulse Ox 92 04/27/19 04:00 Intake & Output 04/26/19 04/26/19 04/27/19 06:59 18:59 06:59 Intake Total 550 200 Output Total 2 Balance 548 200 Weight (lbs) 108.862 kg 108.862 kg Intake: Intake, IV Amount 500 Vancomycin HCl 1.5 gm In 500 Sodium Chloride 0.9% 500 ml @ 250 mls/hr IV Q12H [facility] Rx#:[id number] Oral 50 200 Output: Urine 2 Other: # Voids 3 2 # Bowel Movements 1 1 Weight Source Bedscale Bedscale Active Medications: Current Medications Amlodipine Besylate (Norvasc) 10 mg PO DAILY [facility] Stop: 06/23/19 08:59 Last Admin: 04/26/19 08:20 Dose: 10 mg Aspirin (Aspirin Chewable) 81 mg PO DAILY [facility] Stop: 06/23/19 08:59 Last Admin: 04/26/19 08:12 Dose: 81 mg Clonazepam (Klonopin) 0.5 mg PO BID [facility]; Protocol Stop: 06/23/19 08:59 Last Admin: 04/26/19 17:26 Dose: 0.5 mg Docusate Sodium (Colace) 250 mg PO DAILY [facility] Stop: 06/24/19 20:59 Last Admin: 04/26/19 08:11 Dose: 250 mg Donepezil HCl (Aricept) 10 mg PO HS [facility] Stop: 06/23/19 20:59 Last Admin: 04/26/19 20:46 Dose: 10 mg Sodium Chloride (Nacl 0.9%) 1,000 mls @ 35 mls/hr IV .Q24H [facility] Stop: 06/25/19 11:44 Last Admin: 04/26/19 12:03 Dose: 35 mls/hr Vancomycin HCl 1.75 gm/ Sodium (Chloride) 500 mls @ 165 mls/hr IV Q12H [facility] Stop: 06/25/19 20:59 Last Admin: 04/26/19 20:46 Dose: 165 mls/hr Lamotrigine 200 mg/ (Lamotrigine 50 mg) 250 mg PO BID [facility] Stop: 06/23/19 08:59 Last Admin: 04/26/19 17:31 Dose: 250 mg Memantine (Namenda) 10 mg PO BID [facility] Stop: 06/23/19 08:59 Last Admin: 04/26/19 17:26 Dose: 10 mg Metoprolol Tartrate (Lopressor) 25 mg PO BID [facility] Stop: 06/23/19 08:59 Last Admin: 04/26/19 16:56 Dose: Not Given Miscellaneous (Vancomycin Iv Per Pharmacy) 1 ea PRN PRN PRN Reason: PROTOCOL Stop: 06/23/19 14:50 Oxcarbazepine (Trileptal) 600 mg PO BID [facility] Stop: 06/23/19 08:59 Last Admin: 04/26/19 17:26 Dose: 600 mg General: Alert, Oriented x3, No acute distress HEENT: Atraumatic, PERRLA, EOMI Neck: Supple Cardiovascular: Regular rate, Normal S1, Normal S2 Abdomen: Bowel sounds, Soft Extremities: Edema (+2 edema) Neurological: Normal gait, Normal speech Skin: Rash (presence of erythema to the lower ext) Assessment/Plan - Assessment Assessment: hyponatremia improving sepsis leukocytosis cellulitis to the lower extremities ... continue IV Vanco per ID LLL PNA repeat CXR Rhabdomylosis CK 1065-->474 elevated lactic acid --> 3.4-->1.49 HTN controlled CAD Dyslipidemia Seizure d/o ... neuro consult dementia weakness and fatigue encephalopathy stable CAD lower ext edema ... for doppler U/S venous and arterial negative for any significant stenosis - Plan Plan: repeat CBC,CMP continue IV Vancomycin per ID Nutritional Asmnt/Malnutr-PDOC - Dietary Evaluation Malnutrition Findings (Please click <Entered> for more info): Nutritional Asmnt/Malnutrition Start: 04/25/19 19: 05 Text: Status: Active Freq: Protocol: Document 04/25/19 19:05 PATRICK (Rec: 04/25/19 19:14 PATRICK [id number]) Nutritional Asmnt/Malnutrition Patient General Information Nutritional Screening High Risk Diagnosis SEPSIS, PNA, HYPONATREMIA Pertinent Medical Hx/Surgical Hx HTN, CAD, DYSLIPIDEMIA, SEIZURE DISORDER, DEMENTIA, WEAKNESS, ENCEPHALOPATHY Subjective Information VISITED PT TODAT DURING LUNCH, ENJOYING MEAL, PT STATED HE WAS ENJOYING FOODS PROVIDED, NO ADDITIONAL REQUESTS NURSING NOTED INTAKE 100-100- 100% HIGH NUTRITION RISK SCREENING DUE TO LOW TREASURE SCORE, PER WOUND CARE NURSE ASSESSMENT: "Skin assessment: 1. Left lower extremity: Edema (1+ pitting), and erythema, present on admission . 2. Bilateral lower extremities Edema (1+ pitting), present on admission. Recommend: No dressings needed . Continue to monitor sites every shift. Elevate bilateral lower extremities as tolerated for at least 20 minutes, twice a day 3. Sacral/Buttocks areas: Blanchable redness from IAD, present on admission. Recommend: Cleanse involved areas with mild soap and water . Pat dry. Apply moisture barrier cream to involved areas. Perform site care 4 times a day, and as needed for soiling. 4. Nose: Scab from chronic wound, present on admission. No odor, no drainage. Recommend: No dressing needed. Continue to monitor site every shift." DECREASED NUTRITION RISK TO LOW DUE TO INTACT SKIN, APPROPRIATE INTAKE Current Diet Order/ Nutrition Support [facility] SOFT Patient / S.O Can Pertinent Medications COLACE, LOPRESSOR Pertinent Labs WBC 15, HGB/HCT 13.4/40.4, NA 126, GLUC 120, ALB 3.5 Nutritional Hx/Data Height 1.73 m Height (Calculated Centimeters) 172.7 Current Weight (lbs) 108.862 kg Weight (Calculated Kilograms) 108.9 Weight (Calculated Grams) 968108.2 [place] Body Weight 154 LBS % [place] Body Weight 156 Body Mass Index (BMI) 36.5 Weight Status Obese GI Symptoms GI Symptoms None Last BM TODAY X1 Skin Integrity/Comment: TREASURE SCORE 12 Current %PO Good (75-100%) Estimated Nutritional Goals BEE in Kcals: Adj wt of IBW Calories/Kcals/Kg 25-30 Kcals Calculated 0465-5193 KCAL/DAY Protein: Adj wt of IBW Protein g/k.8-1 Protein Calculated 79-99 Fluid: ml 2.5-3 (1 ML/KCAL) Nutritional Problem 1. Problem Problem OVERWEIGHT/OBESE Etiology NUTRIENT OVERCONSUMPTION Signs/Symptoms: BMI 35.4 Intervention/Recommendation Comments CONTINUE CURRENT DIET, DUE TO CURRENT ILLNESS AND CONCERN FOR IMPROVED SKIN INTEGRITY, CALORIE RESTRICTION IS NOT RECOMMENDED Expected Outcomes/Goals Expected Outcomes/Goals PT TO CONSUME 75-100% NUTRIENT NEEDS DAILY RD TO F/UP IN 7 DAYS, MONITOR INTAKE, WEIGHT, SKIN INTEGRITY , LABS [address]ELIO [address] RD
[2019-04-27 06:43] LABS: HEMATOCRIT 36.1 % (41.0-60); HEMOGLOBIN 11.8 gm/dL (12-16); MEAN CELL VOLUME 94.4 fl (80-99); MEAN CORPUSCULAR HEMOGLOBIN 30.9 pg (27.0-31.0); MEAN CORPUSCULAR HGB CONC 32.7 pg (28.0-36.0); MEAN PLATELET VOLUME 7.2 fl; PLATELET COUNT 281 Th/cmm (150-400); RED BLOOD COUNT 3.82 Mil/cmm (3.80-5.80); RED CELL DISTRIBUTION WIDTH 13.4 % (11.5-20.0); WHITE BLOOD COUNT 11.1 Th/cmm (4.8-10.8)
[2019-04-27 07:19] LABS: ALB/GLOB RATIO 1.1 (1.0-1.8); ALBUMIN 3.1 gm/dL (4.2-5.5); ALKALINE PHOSPHATASE 240 U/L (34-104); ANION GAP 9.6 (7.0-16.0); BILIRUBIN,TOTAL 1.3 mg/dL (0.3-1.0); BUN - UREA NITROGEN 14 mg/dL (7-25); CALCIUM SERUM 8.5 mg/dL (8.6-10.3); CARBON DIOXIDE 24.1 mEq/L (21.0-31.0); CHLORIDE 100 mEq/L (98-107); CREATININE - SERUM 0.8 mg/dL (0.7-1.3); GFR AFRICAN-AMERICAN > 60.0 ml/min (>90); GFR NON AFRICAN-AMERICAN > 60.0 ml/min; GLUCOSE 106 mg/dL (70-105); POTASSIUM SERUM 3.7 mEq/L (3.5-5.1); SGOT 23 U/L (13-39); SGPT/ALT 34 U/L (7-52); SODIUM SERUM 130 mEq/L (136-145); TOTAL PROTEIN,SERUM 5.9 gm/dL (6.0-8.3)
[2019-04-27 07:41] LABS: BASOPHIL 0 % (0-3); PLATELET ESTIMATE ADEQUATE (NORMAL)
[2019-04-27 07:56] LABS: EOSINOPHIL 0 % (0-5); MONOCYTE 4 % (2-10)
[2019-04-27 07:57] LABS: BAND NEUTROPHILE 6 % (0-10); LYMPHOCYTE 10 % (20-50)
[2019-04-27 07:58] LABS: NEUTROPHILS 80 % (40-80)
[2019-04-27] MEDS: Aspirin 81mg Chewable Tab PO SCH (08:42)
[2019-04-27] MEDS: SODIUM CHLORIDE 0.9% IV SCH ×2 (09:23→20:47)
[2019-04-27] MEDS: VANCOMYCIN HCL IV SCH ×2 (09:23→20:47)
--- NOTE | 2019-04-27 10:31 | Progress Notes ---
DATE: 04/26/2019 PULMONARY PROGRESS NOTE SUBJECTIVE: The patient appears to be doing okay. Denies any shortness of breath, chest pain, or cough. OBJECTIVE: VITAL SIGNS: Temperature 98.7, pulse 94, respirations 18, blood pressure 95/66, saturation 93% on room air. CHEST: Good breath sounds. No wheezing, no crackles. HEART: Regular rate and rhythm. ABDOMEN: Soft. EXTREMITIES: No edema. LABORATORY DATA: WBC is down to 12.9, hemoglobin is 12.5, hematocrit 37.5, platelets 248. Sodium 127, potassium 3.4, BUN 12, creatinine 0.7. IMPRESSION: 1. Bronchitis. 2. Leukocytosis. 3. Cellulitis. 4. Weakness. PLAN: 1. Continue antibiotics. 2. Supportive care. 3. Nebulizer treatment p.r.n. JOB# [id number]
[2019-04-27] MEDS: Sodium Chloride 0.9% 1,000 ML IV SCH (11:02)
--- NOTE | 2019-04-27 18:14 | Progress Notes ---
DATE: 04/26/2019 SUBJECTIVE: The patient lying in bed. The patient is awake and alert. The patient . The patient interacting normally. The patient has no headache. The patient has left leg redness. MEDICATIONS: Amlodipine, aspirin, clonazepam, donepezil, memantine, lamotrigine, vancomycin, oxcarbazepine. OBJECTIVE: VITAL SIGNS: Temperature 98.7, blood pressure 95/62, pulse 90. NECK: Supple. No neck bruits. CARDIOVASCULAR: Normal heart sounds. LUNGS: Clear. NEUROLOGIC: The patient is awake, alert. The patient able to answer. Redness of left leg is somewhat better. ASSESSMENT: 1. Cellulitis. 2. Bronchitis. 3. Seizures. 4. Hyponatremia. 5. Rhabdomyolysis. 6. Hypertension. 7. Dementia. PLAN: Continue present treatment. JOB# [id number]
--- NOTE | 2019-04-27 20:56 | Consultation ---
DATE OF CONSULTATION: 04/27/2019 PSYCHIATRIC CONSULT PATIENT'S AGE: 68. SEX: Male. PHYSICIAN: Dr. Carrion. [facility] [employer] [place]: Dr. Bess. TYPE OF THE REPORT: Psychiatric consult. HISTORY OF PRESENT ILLNESS: The patient is a 68-year-old male, who was admitted to the hospital because of cough, fever, congestion, and weakness for 2 days. The patient also had history of hypertension, dyslipidemia as well as seizure disorder, and dementia. Chart reviewed and the patient interviewed. The patient has been anxious and has been worried. The patient also has episodes of confusion. Also complaining of generalized weakness. He denies any thoughts of suicide or homicide and denies any feeling of severe depression. PAST PSYCHIATRIC HISTORY: The patient denies he has history of dementia. PAST MEDICAL HISTORY: As mentioned above. SOCIAL HISTORY: The patient said that he does not have children, never . MENTAL STATUS EXAM: The patient appears slightly older than his stated age. Anxious. Mood not depressed nor elated. Thought processes mainly goal directed. The patient denies auditory or visual hallucinations or delusions. He denies suicidal or homicidal ideations. The patient is alert and oriented to situation, but not to place or person. Impaired immediate and recent memory, but intact remote memory. Fair insight and judgment. ASSESSMENT: PRIMARY DIAGNOSIS: Depressive mood disorder, unspecified. SECONDARY DIAGNOSIS: Dementia, moderate. TREATMENT PLAN: Continue monitoring behavior and continue evaluating the patient for further recommendations. Also, continue Aricept and Namenda. We will reevaluate the patient, but also continue Klonopin 0.5 mg twice a day. Thanks to Dr. Carrion and we will follow up with you. [facility]# [id number]
--- NOTE | 2019-04-28 00:07 | Infectious Disease Prog Note ---
Infectious Disease Subjective - Review of Systems Service Date: 04/27/19 Subjective: There is no new change, no fever. Infectious Disease Objective - Results Result Diagrams: 04/27/19 06:15 04/27/19 06:15 Recent Labs: Laboratory Last Values WBC 11.1 Th/cmm (4.8-10.8) H 04/27/19 06:15 Corrected WBC (auto) 20.1 Th/cmm 04/23/19 14:25 RBC 3.82 Mil/cmm (3.80-5.80) 04/27/19 06:15 Hgb 11.8 gm/dL (12-16) L 04/27/19 06:15 Hct 36.1 % (41.0-60) L 04/27/19 06:15 MCV 94.4 fl (80-99) 04/27/19 06:15 MCH 30.9 pg (27.0-31.0) 04/27/19 06:15 MCHC Differential 32.7 pg (28.0-36.0) 04/27/19 06:15 RDW 13.4 % (11.5-20.0) 04/27/19 06:15 Plt Count 281 Th/cmm (150-400) 04/27/19 06:15 MPV 7.2 fl 04/27/19 06:15 Add Manual Diff YES 04/27/19 06:15 Neutrophils % MEDICINE TEACHER 04/27/19 06:15 Band Neutrophils % 6 % (0-10) 04/27/19 06:15 Lymphocytes % MEDICINE TEACHER 04/27/19 06:15 Monocytes % MEDICINE TEACHER 04/27/19 06:15 Eosinophils % MEDICINE TEACHER 04/27/19 06:15 Basophils % MEDICINE TEACHER 04/27/19 06:15 Neutrophils (Manual) 80 % (40-80) 04/27/19 06:15 Lymphocytes 10 % (20-50) L 04/27/19 06:15 Monocytes 4 % (2-10) 04/27/19 06:15 Eosinophils 0 % (0-5) 04/27/19 06:15 Basophils 0 % (0-3) 04/27/19 06:15 Platelet Estimate ADEQUATE (NORMAL) 04/27/19 06:15 PT 11.6 SECONDS (9.5-11.5) H 04/23/19 14:25 INR 1.13 (0.5-1.4) 04/23/19 14:25 PTT (Actin FS) 28.9 SECONDS (26.0-38.0) 04/23/19 14:25 Sodium 130 mEq/L (136-145) L 04/27/19 06:15 Potassium 3.7 mEq/L (3.5-5.1) 04/27/19 06:15 Chloride 100 mEq/L (98-107) 04/27/19 06:15 Carbon Dioxide 24.1 mEq/L (21.0-31.0) 04/27/19 06:15 Anion Gap 9.6 (7.0-16.0) 04/27/19 06:15 BUN 14 mg/dL (7-25) 04/27/19 06:15 Creatinine 0.8 mg/dL (0.7-1.3) 04/27/19 06:15 Est GFR ( Amer) > 60.0 ml/min (>90) 04/27/19 06:15 Est GFR (Non-Af Amer) > 60.0 ml/min 04/27/19 06:15 BUN/Creatinine Ratio 17.5 04/27/19 06:15 Glucose 106 mg/dL (70-105) H 04/27/19 06:15 POC Glucose 97 MG/DL (70 - 105) 04/23/19 16:53 Whole Bld Lactic Acid 1.49 mmol/L (0.60-1.99) 04/24/19 06:10 Uric Acid 2.0 mg/dL (4.4-7.6) L 04/26/19 08:00 Calcium 8.5 mg/dL (8.6-10.3) L 04/27/19 06:15 Total Bilirubin 1.3 mg/dL (0.3-1.0) H 04/27/19 06:15 AST 23 U/L (13-39) 04/27/19 06:15 ALT 34 U/L (7-52) 04/27/19 06:15 Alkaline Phosphatase 240 U/L (34-104) H 04/27/19 06:15 Creatine Kinase 167 U/L (30-223) 04/26/19 08:00 CK-MB (CK-2) 1.2 ng/mL (0.6-6.3) 04/25/19 05:45 Troponin I 0.02 ng/mL (0.01-0.05) 04/23/19 14:25 Total Protein 5.9 gm/dL (6.0-8.3) L 04/27/19 06:15 Albumin 3.1 gm/dL (4.2-5.5) L 04/27/19 06:15 Globulin 2.8 gm/dL 04/27/19 06:15 Albumin/Globulin Ratio 1.1 (1.0-1.8) 04/27/19 06:15 Triglycerides 65 mg/dL (<150) 04/24/19 06:10 Cholesterol 126 mg/dL (<200) 04/24/19 06:10 LDL Cholesterol Direct 53 mg/dL (75-193) L 04/24/19 06:10 HDL Cholesterol 56 mg/dL (23-92) 04/24/19 06:10 TSH 0.85 uIU/ml (0.34-5.60) 04/24/19 06:10 Prolactin 8.9 ng/mL (4.0-15.2) 04/24/19 06:10 Urine Source MIDSTREAM 04/23/19 15:00 Urine Color YELLOW 04/23/19 15:00 Urine Clarity SLIGHT HAZY (CLEAR) 04/23/19 15:00 Urine pH 5.5 (4.6 - 8.0) 04/23/19 15:00 Ur Specific [place] 1.015 (1.005-1.030) 04/23/19 15:00 Urine Protein >=300 mg/dL (NEGATIVE) 04/23/19 15:00 Urine Glucose (UA) NEGATIVE mg/dL (NEGATIVE) 04/23/19 15:00 Urine Ketones TRACE mg/dL (NEGATIVE) 04/23/19 15:00 Urine Blood LARGE (NEGATIVE) H 04/23/19 15:00 Urine Nitrate NEGATIVE (NEGATIVE) 04/23/19 15:00 Urine Bilirubin NEGATIVE (NEGATIVE) 04/23/19 15:00 Urine Urobilinogen 1.0 E.U./dL (0.2 - 1.0) 04/23/19 15:00 Ur Leukocyte Esterase NEGATIVE (NEGATIVE) 04/23/19 15:00 Urine RBC 2-5 /hpf (0-5) H 04/23/19 15:00 Urine WBC 2-5 /hpf (0-5) 04/23/19 15:00 Ur Epithelial Cells RARE /lpf (FEW) 04/23/19 15:00 Urine Bacteria OCCASIONAL /hpf (NONE SEEN) 04/23/19 15:00 Vancomycin Trough 9.2 ug/mL (5-10) 04/26/19 08:00 - Physical Exam Vitals and I&O: Vital Signs Temp 97.4 F 04/27/19 20:00 Pulse 80 04/27/19 20:00 Resp 18 04/27/19 21:00 BP 119/59 04/27/19 20:00 Pulse Ox 95 04/27/19 20:00 Intake & Output 04/27/19 04/27/19 04/28/19 06:59 18:59 06:59 Intake Total 500 1304.417 Balance 500 1304.417 Weight (lbs) 108.862 kg Intake: Intake, IV Amount 500 1304.417 Sodium Chloride 0.9% 1, 804.417 000 ml @ 35 mls/hr IV . Q24H [facility] Rx#:[id number] Vancomycin HCl 1.75 gm In 500 500 Sodium Chloride 0.9% 500 ml @ 165 mls/hr IV Q12H [facility] Rx#:[id number] Other: # Voids 4 # Bowel Movements 1 Weight Source Bedscale Active Medications: Current Medications Amlodipine Besylate (Norvasc) 10 mg PO DAILY [facility] Stop: 06/23/19 08:59 Last Admin: 04/27/19 08:41 Dose: 10 mg Aspirin (Aspirin Chewable) 81 mg PO DAILY [facility] Stop: 06/23/19 08:59 Last Admin: 04/27/19 08:42 Dose: 81 mg Clonazepam (Klonopin) 0.5 mg PO BID [facility]; Protocol Stop: 06/23/19 08:59 Last Admin: 04/27/19 16:56 Dose: 0.5 mg Docusate Sodium (Colace) 250 mg PO DAILY [facility] Stop: 06/24/19 20:59 Last Admin: 04/27/19 08:41 Dose: 250 mg Donepezil HCl (Aricept) 10 mg PO [facility] Stop: 06/23/19 20:59 Last Admin: 04/27/19 20:47 Dose: 10 mg Sodium Chloride (Nacl 0.9%) 1,000 mls @ 35 mls/hr IV .Q24H [facility] Stop: 06/25/19 11:44 Last Admin: 04/27/19 11:02 Dose: 35 mls/hr Vancomycin HCl 1.75 gm/ Sodium (Chloride) 500 mls @ 165 mls/hr IV Q12H [facility] Stop: 06/25/19 20:59 Last Admin: 04/27/19 20:47 Dose: 165 mls/hr Lamotrigine 200 mg/ (Lamotrigine 50 mg) 250 mg PO BID [facility] Stop: 06/23/19 08:59 Last Admin: 04/27/19 16:55 Dose: 250 mg Memantine (Namenda) 10 mg PO BID [facility] Stop: 06/23/19 08:59 Last Admin: 04/27/19 16:56 Dose: 10 mg Metoprolol Tartrate (Lopressor) 25 mg PO BID [facility] Stop: 06/23/19 08:59 Last Admin: 04/27/19 16:56 Dose: 25 mg Miscellaneous (Vancomycin Iv Per Pharmacy) 1 ea PRN PRN PRN Reason: PROTOCOL Stop: 06/23/19 14:50 Oxcarbazepine (Trileptal) 600 mg PO BID [facility] Stop: 06/23/19 08:59 Last Admin: 04/27/19 16:56 Dose: 600 mg General: no acute distress, well developed, well nourished HEENT: atraumatic, normocephalic, PERRLA, EOMI Neck: supple, no thyromegaly Cardiovascular: S1S2, regular Lungs: clear to auscultation bilaterally, clear to percussion, no crackles Abdomen: soft, no tender, no distended, no mass, no rebound Extremities: other (left leg redness and swelling improving), no cyanosis, no clubbing, no edema Neurological: awake, alert, oriented Infectious Disease Assmt/Plan - Assessment Assessment: 1. Sepsis. severe sepsis with lactic acidosis. 2. Left leg cellulitis. 3. Susoect Pneumonia. 4. HTN. 5. Rhabdomyolysis. 6. Hyponatremia. 7. Dementia. - Plan Plan: Will continue vanco IV and Zosyn. Nutritional Asmnt/Malnutr-PDOC - Dietary Evaluation Malnutrition Findings (Please click <Entered> for more info): Nutritional Asmnt/Malnutrition Start: 04/25/19 19: 05 Text: Status: Active Freq: Protocol: Document 04/25/19 19:05 PATRICK (Rec: 04/25/19 19:14 PATRICK [id number]) Nutritional Asmnt/Malnutrition Patient General Information Nutritional Screening High Risk Diagnosis SEPSIS, PNA, HYPONATREMIA Pertinent Medical Hx/Surgical Hx HTN, CAD, DYSLIPIDEMIA, SEIZURE DISORDER, DEMENTIA, WEAKNESS, ENCEPHALOPATHY Subjective Information VISITED PT TODAT DURING LUNCH, ENJOYING MEAL, PT STATED HE WAS ENJOYING FOODS PROVIDED, NO ADDITIONAL REQUESTS NURSING NOTED INTAKE 100-100- 100% HIGH NUTRITION RISK SCREENING DUE TO LOW TREASURE SCORE, PER WOUND CARE NURSE ASSESSMENT: "Skin assessment: 1. Left lower extremity: Edema (1+ pitting), and erythema, present on admission . 2. Bilateral lower extremities Edema (1+ pitting), present on admission. Recommend: No dressings needed . Continue to monitor sites every shift. Elevate bilateral lower extremities as tolerated for at least 20 minutes, twice a day 3. Sacral/Buttocks areas: Blanchable redness from IAD, present on admission. Recommend: Cleanse involved areas with mild soap and water . Pat dry. Apply moisture barrier cream to involved areas. Perform site care 4 times a day, and as needed for soiling. 4. Nose: Scab from chronic wound, present on admission. No odor, no drainage. Recommend: No dressing needed. Continue to monitor site every shift." DECREASED NUTRITION RISK TO LOW DUE TO INTACT SKIN, APPROPRIATE INTAKE Current Diet Order/ Nutrition Support [facility] SOFT Patient / S.O Can Pertinent Medications COLACE, LOPRESSOR Pertinent Labs WBC 15, HGB/HCT 13.4/40.4, NA 126, GLUC 120, ALB 3.5 Nutritional Hx/Data Height 1.73 m Height (Calculated Centimeters) 172.7 Current Weight (lbs) 108.862 kg Weight (Calculated Kilograms) 108.9 Weight (Calculated Grams) 512532.2 [place] Body Weight 154 LBS % [place] Body Weight 156 Body Mass Index (BMI) 36.5 Weight Status Obese GI Symptoms GI Symptoms None Last BM TODAY X1 Skin Integrity/Comment: TREASURE SCORE 12 Current %PO Good (75-100%) Estimated Nutritional Goals BEE in Kcals: Adj wt of IBW Calories/Kcals/Kg 25-30 Kcals Calculated 8860-1576 KCAL/DAY Protein: Adj wt of IBW Protein g/k.8-1 Protein Calculated 79-99 Fluid: ml 2.5-3 (1 ML/KCAL) Nutritional Problem 1. Problem Problem OVERWEIGHT/OBESE Etiology NUTRIENT OVERCONSUMPTION Signs/Symptoms: BMI 35.4 Intervention/Recommendation Comments CONTINUE CURRENT DIET, DUE TO CURRENT ILLNESS AND CONCERN FOR IMPROVED SKIN INTEGRITY, CALORIE RESTRICTION IS NOT RECOMMENDED Expected Outcomes/Goals Expected Outcomes/Goals PT TO CONSUME 75-100% NUTRIENT NEEDS DAILY RD TO F/UP IN 7 DAYS, MONITOR INTAKE, WEIGHT, SKIN INTEGRITY , LABS [address]EL[address] RD
--- NOTE | 2019-04-28 04:09 | Progress Notes ---
DATE: 04/27/2019 PULMONARY PROGRESS NOTE SUBJECTIVE: The patient appears to be comfortable, awake, no distress. OBJECTIVE: VITAL SIGNS: Temperature 97.6, pulse 79, respirations 18, blood pressure 100/55, saturation 96% on room air. CHEST: Good breath sounds. No wheezing. No crackles. HEART: Regular rate and rhythm. ABDOMEN: Soft, no tenderness. EXTREMITIES: No edema. LABORATORY DATA: WBC is down to 11.1, hemoglobin 11.8, platelets 281. Sodium is 130, potassium 3.7, BUN 14, creatinine 0.8. IMPRESSION: 1. Pneumonia. 2. Cellulitis. 3. Weakness. 4. Hyponatremia. 5. Seizure disorder. PLAN: Continue antibiotics, nebulizer treatment, pulmonary toilet, supportive care and followup chest x-ray. JOB# [id number]
--- NOTE | 2019-04-28 05:42 | General Progress Note ---
Subjective - Review of Systems Service Date: 04/28/19 Subjective: Patient is feeling better.Awake, alert, afebrile lower ext edema noted to the lower extremities. Venous and Arterial doppler negative Objective - Results Result Diagrams: 04/27/19 06:15 04/27/19 06:15 Recent Labs: Laboratory Last Values WBC 11.1 Th/cmm (4.8-10.8) H 04/27/19 06:15 Corrected WBC (auto) 20.1 Th/cmm 04/23/19 14:25 RBC 3.82 Mil/cmm (3.80-5.80) 04/27/19 06:15 Hgb 11.8 gm/dL (12-16) L 04/27/19 06:15 Hct 36.1 % (41.0-60) L 04/27/19 06:15 MCV 94.4 fl (80-99) 04/27/19 06:15 MCH 30.9 pg (27.0-31.0) 04/27/19 06:15 MCHC Differential 32.7 pg (28.0-36.0) 04/27/19 06:15 RDW 13.4 % (11.5-20.0) 04/27/19 06:15 Plt Count 281 Th/cmm (150-400) 04/27/19 06:15 MPV 7.2 fl 04/27/19 06:15 Add Manual Diff YES 04/27/19 06:15 Neutrophils % [employer] BPM ARCHITECT 04/27/19 06:15 Band Neutrophils % 6 % (0-10) 04/27/19 06:15 Lymphocytes % [employer] B[employer] ARCHITECT 04/27/19 06:15 Monocytes % [employer] BPM ARCHITECT 04/27/19 06:15 Eosinophils % [employer] B[employer] ARCHITECT 04/27/19 06:15 Basophils % [employer] BPM ARCHITECT 04/27/19 06:15 Neutrophils (Manual) 80 % (40-80) 04/27/19 06:15 Lymphocytes 10 % (20-50) L 04/27/19 06:15 Monocytes 4 % (2-10) 04/27/19 06:15 Eosinophils 0 % (0-5) 04/27/19 06:15 Basophils 0 % (0-3) 04/27/19 06:15 Platelet Estimate ADEQUATE (NORMAL) 04/27/19 06:15 PT 11.6 SECONDS (9.5-11.5) H 04/23/19 14:25 INR 1.13 (0.5-1.4) 04/23/19 14:25 PTT (Actin FS) 28.9 SECONDS (26.0-38.0) 04/23/19 14:25 Sodium 130 mEq/L (136-145) L 04/27/19 06:15 Potassium 3.7 mEq/L (3.5-5.1) 04/27/19 06:15 Chloride 100 mEq/L (98-107) 04/27/19 06:15 Carbon Dioxide 24.1 mEq/L (21.0-31.0) 04/27/19 06:15 Anion Gap 9.6 (7.0-16.0) 04/27/19 06:15 BUN 14 mg/dL (7-25) 04/27/19 06:15 Creatinine 0.8 mg/dL (0.7-1.3) 04/27/19 06:15 Est GFR ( Amer) > 60.0 ml/min (>90) 04/27/19 06:15 Est GFR (Non-Af Amer) > 60.0 ml/min 04/27/19 06:15 BUN/Creatinine Ratio 17.5 04/27/19 06:15 Glucose 106 mg/dL (70-105) H 04/27/19 06:15 POC Glucose 97 MG/DL (70 - 105) 04/23/19 16:53 Whole Bld Lactic Acid 1.49 mmol/L (0.60-1.99) 04/24/19 06:10 Uric Acid 2.0 mg/dL (4.4-7.6) L 04/26/19 08:00 Calcium 8.5 mg/dL (8.6-10.3) L 04/27/19 06:15 Total Bilirubin 1.3 mg/dL (0.3-1.0) H 04/27/19 06:15 AST 23 U/L (13-39) 04/27/19 06:15 ALT 34 U/L (7-52) 04/27/19 06:15 Alkaline Phosphatase 240 U/L (34-104) H 04/27/19 06:15 Creatine Kinase 167 U/L (30-223) 04/26/19 08:00 CK-MB (CK-2) 1.2 ng/mL (0.6-6.3) 04/25/19 05:45 Troponin I 0.02 ng/mL (0.01-0.05) 04/23/19 14:25 Total Protein 5.9 gm/dL (6.0-8.3) L 04/27/19 06:15 Albumin 3.1 gm/dL (4.2-5.5) L 04/27/19 06:15 Globulin 2.8 gm/dL 04/27/19 06:15 Albumin/Globulin Ratio 1.1 (1.0-1.8) 04/27/19 06:15 Triglycerides 65 mg/dL (<150) 04/24/19 06:10 Cholesterol 126 mg/dL (<200) 04/24/19 06:10 LDL Cholesterol Direct 53 mg/dL (75-193) L 04/24/19 06:10 HDL Cholesterol 56 mg/dL (23-92) 04/24/19 06:10 TSH 0.85 uIU/ml (0.34-5.60) 04/24/19 06:10 Prolactin 8.9 ng/mL (4.0-15.2) 04/24/19 06:10 Urine Source MIDSTREAM 04/23/19 15:00 Urine Color YELLOW 04/23/19 15:00 Urine Clarity SLIGHT HAZY (CLEAR) 04/23/19 15:00 Urine pH 5.5 (4.6 - 8.0) 04/23/19 15:00 Ur Specific [place] 1.015 (1.005-1.030) 04/23/19 15:00 Urine Protein >=300 mg/dL (NEGATIVE) 04/23/19 15:00 Urine Glucose (UA) NEGATIVE mg/dL (NEGATIVE) 04/23/19 15:00 Urine Ketones TRACE mg/dL (NEGATIVE) 04/23/19 15:00 Urine Blood LARGE (NEGATIVE) H 04/23/19 15:00 Urine Nitrate NEGATIVE (NEGATIVE) 04/23/19 15:00 Urine Bilirubin NEGATIVE (NEGATIVE) 04/23/19 15:00 Urine Urobilinogen 1.0 E.U./dL (0.2 - 1.0) 04/23/19 15:00 Ur Leukocyte Esterase NEGATIVE (NEGATIVE) 04/23/19 15:00 Urine RBC 2-5 /hpf (0-5) H 04/23/19 15:00 Urine WBC 2-5 /hpf (0-5) 04/23/19 15:00 Ur Epithelial Cells RARE /lpf (FEW) 04/23/19 15:00 Urine Bacteria OCCASIONAL /hpf (NONE SEEN) 04/23/19 15:00 Vancomycin Trough 9.2 ug/mL (5-10) 04/26/19 08:00 - Physical Exam Vitals and I&O: Vital Signs Temp 97 F 04/28/19 04:00 Pulse 82 04/28/19 04:00 Resp 18 04/28/19 05:00 BP 118/62 04/28/19 04:00 Pulse Ox 97 04/28/19 04:00 Intake & Output 04/27/19 04/27/19 04/28/19 06:59 18:59 06:59 Intake Total 500 1304.417 Balance 500 1304.417 Weight (lbs) 108.862 kg Intake: Intake, IV Amount 500 1304.417 Sodium Chloride 0.9% 1, 804.417 000 ml @ 35 mls/hr IV . Q24H [facility] Rx#:[id number] Vancomycin HCl 1.75 gm In 500 500 Sodium Chloride 0.9% 500 ml @ 165 mls/hr IV Q12H [facility] Rx#:[id number] Other: # Voids 4 # Bowel Movements 1 Weight Source Bedscale Active Medications: Current Medications Amlodipine Besylate (Norvasc) 10 mg PO DAILY [facility] Stop: 06/23/19 08:59 Last Admin: 04/27/19 08:41 Dose: 10 mg Aspirin (Aspirin Chewable) 81 mg PO DAILY [facility] Stop: 06/23/19 08:59 Last Admin: 04/27/19 08:42 Dose: 81 mg Clonazepam (Klonopin) 0.5 mg PO BID [facility]; Protocol Stop: 06/23/19 08:59 Last Admin: 04/27/19 16:56 Dose: 0.5 mg Docusate Sodium (Colace) 250 mg PO DAILY [facility] Stop: 06/24/19 20:59 Last Admin: 04/27/19 08:41 Dose: 250 mg Donepezil HCl (Aricept) 10 mg PO [facility] Stop: 06/23/19 20:59 Last Admin: 04/27/19 20:47 Dose: 10 mg Sodium Chloride (Nacl 0.9%) 1,000 mls @ 35 mls/hr IV .Q24H [facility] Stop: 06/25/19 11:44 Last Admin: 04/27/19 11:02 Dose: 35 mls/hr Vancomycin HCl 1.75 gm/ Sodium (Chloride) 500 mls @ 165 mls/hr IV Q12H [facility] Stop: 06/25/19 20:59 Last Admin: 04/27/19 20:47 Dose: 165 mls/hr Lamotrigine 200 mg/ (Lamotrigine 50 mg) 250 mg PO BID [facility] Stop: 06/23/19 08:59 Last Admin: 04/27/19 16:55 Dose: 250 mg Memantine (Namenda) 10 mg PO BID [facility] Stop: 06/23/19 08:59 Last Admin: 04/27/19 16:56 Dose: 10 mg Metoprolol Tartrate (Lopressor) 25 mg PO BID [facility] Stop: 06/23/19 08:59 Last Admin: 04/27/19 16:56 Dose: 25 mg Miscellaneous (Vancomycin Iv Per Pharmacy) 1 ea MC PRN PRN PRN Reason: PROTOCOL Stop: 06/23/19 14:50 Oxcarbazepine (Trileptal) 600 mg PO BID [facility] Stop: 06/23/19 08:59 Last Admin: 04/27/19 16:56 Dose: 600 mg General: Alert, Oriented x3, No acute distress HEENT: Atraumatic, PERRLA, EOMI Neck: Supple Cardiovascular: Regular rate, Normal S1, Normal S2 Abdomen: Bowel sounds, Soft Extremities: Edema (+2 edema) Neurological: Normal gait, Normal speech Skin: Rash (presence of erythema to the lower ext) Assessment/Plan - Assessment Assessment: hyponatremia improving Na -- 130 sepsis leukocytosis WBC -- 11K cellulitis to the lower extremities ... continue IV Vanco per ID LLL PNA repeat CXR Rhabdomylosis CK 1065-->474 elevated lactic acid --> 3.4-->1.49 HTN controlled CAD Dyslipidemia Seizure d/o ... neuro consult dementia weakness and fatigue encephalopathy stable CAD lower ext edema ... for doppler U/S venous and arterial negative for any significant stenosis - Plan Plan: repeat CBC,CMP continue IV Vancomycin per ID Nutritional Asmnt/Malnutr-PDOC - Dietary Evaluation Malnutrition Findings (Please click <Entered> for more info): Nutritional Asmnt/Malnutrition Start: 04/25/19 19: 05 Text: Status: Active Freq: Protocol: Document 04/25/19 19:05 PATRICK (Rec: 04/25/19 19:14 PATRICK [id number]) Nutritional Asmnt/Malnutrition Patient General Information Nutritional Screening High Risk Diagnosis SEPSIS, PNA, HYPONATREMIA Pertinent Medical Hx/Surgical Hx HTN, CAD, DYSLIPIDEMIA, SEIZURE DISORDER, DEMENTIA, WEAKNESS, ENCEPHALOPATHY Subjective Information VISITED PT TODAT DURING LUNCH, ENJOYING MEAL, PT STATED HE WAS ENJOYING FOODS PROVIDED, NO ADDITIONAL REQUESTS NURSING NOTED INTAKE 100-100- 100% HIGH NUTRITION RISK SCREENING DUE TO LOW TREASURE SCORE, PER WOUND CARE NURSE ASSESSMENT: "Skin assessment: 1. Left lower extremity: Edema (1+ pitting), and erythema, present on admission . 2. Bilateral lower extremities Edema (1+ pitting), present on admission. Recommend: No dressings needed . Continue to monitor sites every shift. Elevate bilateral lower extremities as tolerated for at least 20 minutes, twice a day 3. Sacral/Buttocks areas: Blanchable redness from IAD, present on admission. Recommend: Cleanse involved areas with mild soap and water . Pat dry. Apply moisture barrier cream to involved areas. Perform site care 4 times a day, and as needed for soiling. 4. Nose: Scab from chronic wound, present on admission. No odor, no drainage. Recommend: No dressing needed. Continue to monitor site every shift." DECREASED NUTRITION RISK TO LOW DUE TO INTACT SKIN, APPROPRIATE INTAKE Current Diet Order/ Nutrition Support [facility] SOFT Patient / S.O Can Pertinent Medications COLACE, LOPRESSOR Pertinent Labs WBC 15, HGB/HCT 13.4/40.4, NA 126, GLUC 120, ALB 3.5 Nutritional Hx/Data Height 1.73 m Height (Calculated Centimeters) 172.7 Current Weight (lbs) 108.862 kg Weight (Calculated Kilograms) 108.9 Weight (Calculated Grams) 913344.2 [place] Body Weight 154 LBS % [place] Body Weight 156 Body Mass Index (BMI) 36.5 Weight Status Obese GI Symptoms GI Symptoms None Last BM TODAY X1 Skin Integrity/Comment: TREASURE SCORE 12 Current %PO Good (75-100%) Estimated Nutritional Goals BEE in Kcals: Adj wt of IBW Calories/Kcals/Kg 25-30 Kcals Calculated 6793-6868 KCAL/DAY Protein: Adj wt of IBW Protein g/k.8-1 Protein Calculated 79-99 Fluid: ml 2.5-3 (1 ML/KCAL) Nutritional Problem 1. Problem Problem OVERWEIGHT/OBESE Etiology NUTRIENT OVERCONSUMPTION Signs/Symptoms: BMI 35.4 Intervention/Recommendation Comments CONTINUE CURRENT DIET, DUE TO CURRENT ILLNESS AND CONCERN FOR IMPROVED SKIN INTEGRITY, CALORIE RESTRICTION IS NOT RECOMMENDED Expected Outcomes/Goals Expected Outcomes/Goals PT TO CONSUME 75-100% NUTRIENT NEEDS DAILY RD TO F/UP IN 7 DAYS, MONITOR INTAKE, WEIGHT, SKIN INTEGRITY , LABS [address]
[2019-04-28 08:08] LABS: % EOSINOPHILS 2.4 % (0.0-5.0); % LYMPHOCYTES 13.1 % (20.0-50.0); % MONOCYTES 7.6 % (2.0-10.0); % NEUTROPHILS 75.9 % (40.0-80.0); BASOPHILE ABSOLUTE 0.1 Th/cumm (0-0.2); EOSINOPHILE ABSOLUTE 0.3 Th/cmm (0.1-0.4); HEMATOCRIT 37.1 % (41.0-60); HEMOGLOBIN 12.4 gm/dL (12-16); LYMPHOCYTE ABSOLUTE 1.5 Th/cmm (1.5-3.0); MEAN CELL VOLUME 94.5 fl (80-99); MEAN CORPUSCULAR HEMOGLOBIN 31.6 pg (27.0-31.0); MEAN CORPUSCULAR HGB CONC 33.4 pg (28.0-36.0); MEAN PLATELET VOLUME 6.9 fl; MONOCYTE ABSOLUTE 0.9 Th/cmm (0.3-1.0); NEUTROPHILE ABSOLUTE 8.8 Th/cmm (1.8-8.0); PLATELET COUNT 335 Th/cmm (150-400); RED BLOOD COUNT 3.93 Mil/cmm (3.80-5.80); RED CELL DISTRIBUTION WIDTH 13.1 % (11.5-20.0); WHITE BLOOD COUNT 11.6 Th/cmm (4.8-10.8)
[2019-04-28] MEDS: Aspirin 81mg Chewable Tab PO SCH (08:13)
[2019-04-28 08:19] LABS: ANION GAP 11.7 (7.0-16.0); BUN - UREA NITROGEN 12 mg/dL (7-25); CARBON DIOXIDE 24.9 mEq/L (21.0-31.0); CHLORIDE 97 mEq/L (98-107); CREATININE - SERUM 0.7 mg/dL (0.7-1.3); GFR AFRICAN-AMERICAN > 60.0 ml/min (>90); GFR NON AFRICAN-AMERICAN > 60.0 ml/min; GLUCOSE 102 mg/dL (70-105); POTASSIUM SERUM 3.6 mEq/L (3.5-5.1); SODIUM SERUM 130 mEq/L (136-145)
--- NOTE | 2019-04-28 08:31 | Diagnostic Imaging Report ---
Portable chest x-ray Time: 0 737 History: Shortness of breath Allowing for portable technique the heart size is normal. No focal pulmonary parenchymal processes. No hilar or mediastinal abnormalities. Impression: No acute abnormalities.
[2019-04-28] MEDS: SODIUM CHLORIDE 0.9% IV SCH ×2 (10:42→20:35)
[2019-04-28] MEDS: VANCOMYCIN HCL IV SCH ×2 (10:42→20:35)
--- NOTE | 2019-04-28 23:12 | Progress Notes ---
DATE: 04/27/2019 SUBJECTIVE/REVIEW OF SYSTEMS: The patient is lying in bed, awake, having breakfast. No repeat episodes. The patient will answer questions. MEDICATIONS: Aspirin, Aricept, gabapentin, lamotrigine, oxcarbazepine, and clonazepam. OBJECTIVE: VITAL SIGNS: Temperature 98.4, blood pressure 135/73, pulse is 72. NECK: Supple. No bruits. NEUROLOGIC: The patient able to answer questions, but confused, did not know what day. MOTOR: He will lift both arms up. ASSESSMENT: 1. Seizure disorder, stable. 2. Cellulitis. 3. Rhabdomyolysis. 4. Hyponatremia. DICTATION ENDS HERE JOB# [id number]
--- NOTE | 2019-04-29 00:13 | Progress Notes ---
DATE: 04/28/2019 Case was discussed with staff of the patient, reviewed records. Covering for Dr. Bess. This is a 68-year-old male who was on the medical floor. He was in the cough, congestion and fever and weakness for the past 2 days. The patient has been anxious, worried with the episodes of confusion, complains of generalized weakness with a history of dementia. He does not have children. The patient denies any current intent to harm himself or anyone. Denies visual hallucination or paranoia. He is alert and oriented to situation, but not to place or person. His immediate memory and short term memory is impaired. His remote memory is intact. DIAGNOSIS: Depression. The patient has been on Aricept and Namenda with no side effect. We will continue to follow up with you. Thank you very much for allowing me to participate in the care of this most interesting gentleman. JOB# [id number]
--- NOTE | 2019-04-29 06:16 | General Progress Note ---
Subjective - Review of Systems Service Date: 04/29/19 Subjective: Patient is feeling better.Awake, alert, afebrile lower ext edema noted to the lower extremities with redness to the left lower extremity . Venous and Arterial doppler negative Objective - Results Result Diagrams: 04/28/19 08:00 04/28/19 08:00 Recent Labs: Laboratory Last Values WBC 11.6 Th/cmm (4.8-10.8) H 04/28/19 08:00 Corrected WBC (auto) 20.1 Th/cmm 04/23/19 14:25 RBC 3.93 Mil/cmm (3.80-5.80) 04/28/19 08:00 Hgb 12.4 gm/dL (12-16) 04/28/19 08:00 Hct 37.1 % (41.0-60) L 04/28/19 08:00 MCV 94.5 fl (80-99) 04/28/19 08:00 MCH 31.6 pg (27.0-31.0) H 04/28/19 08:00 MCHC Differential 33.4 pg (28.0-36.0) 04/28/19 08:00 RDW 13.1 % (11.5-20.0) 04/28/19 08:00 Plt Count 335 Th/cmm (150-400) 04/28/19 08:00 MPV 6.9 fl 04/28/19 08:00 Add Manual Diff YES 04/27/19 06:15 Neutrophils % 75.9 % (40.0-80.0) 04/28/19 08:00 Band Neutrophils % 6 % (0-10) 04/27/19 06:15 Lymphocytes % 13.1 % (20.0-50.0) L 04/28/19 08:00 Monocytes % 7.6 % (2.0-10.0) 04/28/19 08:00 Eosinophils % 2.4 % (0.0-5.0) 04/28/19 08:00 Basophils % 1.0 % (0.0-2.0) 04/28/19 08:00 Neutrophils (Manual) 80 % (40-80) 04/27/19 06:15 Lymphocytes 10 % (20-50) L 04/27/19 06:15 Monocytes 4 % (2-10) 04/27/19 06:15 Eosinophils 0 % (0-5) 04/27/19 06:15 Basophils 0 % (0-3) 04/27/19 06:15 Platelet Estimate ADEQUATE (NORMAL) 04/27/19 06:15 PT 11.6 SECONDS (9.5-11.5) H 04/23/19 14:25 INR 1.13 (0.5-1.4) 04/23/19 14:25 PTT (Actin FS) 28.9 SECONDS (26.0-38.0) 04/23/19 14:25 Sodium 130 mEq/L (136-145) L 04/28/19 08:00 Potassium 3.6 mEq/L (3.5-5.1) 04/28/19 08:00 Chloride 97 mEq/L (98-107) L 04/28/19 08:00 Carbon Dioxide 24.9 mEq/L (21.0-31.0) 04/28/19 08:00 Anion Gap 11.7 (7.0-16.0) 04/28/19 08:00 BUN 12 mg/dL (7-25) 04/28/19 08:00 Creatinine 0.7 mg/dL (0.7-1.3) 04/28/19 08:00 Est GFR ( Amer) > 60.0 ml/min (>90) 04/28/19 08:00 Est GFR (Non-Af Amer) > 60.0 ml/min 04/28/19 08:00 BUN/Creatinine Ratio 17.1 04/28/19 08:00 Glucose 102 mg/dL (70-105) 04/28/19 08:00 POC Glucose 97 MG/DL (70 - 105) 04/23/19 16:53 Whole Bld Lactic Acid 1.49 mmol/L (0.60-1.99) 04/24/19 06:10 Uric Acid 2.0 mg/dL (4.4-7.6) L 04/26/19 08:00 Calcium 9.0 mg/dL (8.6-10.3) 04/28/19 08:00 Total Bilirubin 1.3 mg/dL (0.3-1.0) H 04/27/19 06:15 AST 23 U/L (13-39) 04/27/19 06:15 ALT 34 U/L (7-52) 04/27/19 06:15 Alkaline Phosphatase 240 U/L (34-104) H 04/27/19 06:15 Creatine Kinase 167 U/L (30-223) 04/26/19 08:00 CK-MB (CK-2) 1.2 ng/mL (0.6-6.3) 04/25/19 05:45 Troponin I 0.02 ng/mL (0.01-0.05) 04/23/19 14:25 Total Protein 5.9 gm/dL (6.0-8.3) L 04/27/19 06:15 Albumin 3.1 gm/dL (4.2-5.5) L 04/27/19 06:15 Globulin 2.8 gm/dL 04/27/19 06:15 Albumin/Globulin Ratio 1.1 (1.0-1.8) 04/27/19 06:15 Triglycerides 65 mg/dL (<150) 04/24/19 06:10 Cholesterol 126 mg/dL (<200) 04/24/19 06:10 LDL Cholesterol Direct 53 mg/dL (75-193) L 04/24/19 06:10 HDL Cholesterol 56 mg/dL (23-92) 04/24/19 06:10 TSH 0.85 uIU/ml (0.34-5.60) 04/24/19 06:10 Prolactin 8.9 ng/mL (4.0-15.2) 04/24/19 06:10 Urine Source MIDSTREAM 04/23/19 15:00 Urine Color YELLOW 04/23/19 15:00 Urine Clarity SLIGHT HAZY (CLEAR) 04/23/19 15:00 Urine pH 5.5 (4.6 - 8.0) 04/23/19 15:00 Ur Specific [place] 1.015 (1.005-1.030) 04/23/19 15:00 Urine Protein >=300 mg/dL (NEGATIVE) 04/23/19 15:00 Urine Glucose (UA) NEGATIVE mg/dL (NEGATIVE) 04/23/19 15:00 Urine Ketones TRACE mg/dL (NEGATIVE) 04/23/19 15:00 Urine Blood LARGE (NEGATIVE) H 04/23/19 15:00 Urine Nitrate NEGATIVE (NEGATIVE) 04/23/19 15:00 Urine Bilirubin NEGATIVE (NEGATIVE) 04/23/19 15:00 Urine Urobilinogen 1.0 E.U./dL (0.2 - 1.0) 04/23/19 15:00 Ur Leukocyte Esterase NEGATIVE (NEGATIVE) 04/23/19 15:00 Urine RBC 2-5 /hpf (0-5) H 04/23/19 15:00 Urine WBC 2-5 /hpf (0-5) 04/23/19 15:00 Ur Epithelial Cells RARE /lpf (FEW) 04/23/19 15:00 Urine Bacteria OCCASIONAL /hpf (NONE SEEN) 04/23/19 15:00 Vancomycin Trough 14.3 ug/mL (5-10) H 04/28/19 08:00 - Physical Exam Vitals and I&O: Vital Signs Temp 97 F 04/29/19 04:00 Pulse 80 04/29/19 04:00 Resp 18 04/29/19 04:00 BP 151/81 04/29/19 04:00 Pulse Ox 98 04/29/19 04:00 Intake & Output 04/28/19 04/28/19 04/29/19 06:59 18:59 06:59 Intake Total 500 1000 Balance 500 1000 Weight (lbs) 111.13 kg Intake: Intake, IV Amount 500 500 Vancomycin HCl 1.75 gm In 500 500 Sodium Chloride 0.9% 500 ml @ 165 mls/hr IV Q12H [facility] Rx#:[id number] Oral 500 Other: # Voids 3 # Bowel Movements 1 Weight Source Bedscale Active Medications: Current Medications Amlodipine Besylate (Norvasc) 10 mg PO DAILY [facility] Stop: 06/23/19 08:59 Last Admin: 04/28/19 08:12 Dose: 10 mg Aspirin (Aspirin Chewable) 81 mg PO DAILY [facility] Stop: 06/23/19 08:59 Last Admin: 04/28/19 08:13 Dose: 81 mg Clonazepam (Klonopin) 0.5 mg PO BID [facility]; Protocol Stop: 06/23/19 08:59 Last Admin: 04/28/19 16:12 Dose: 0.5 mg Docusate Sodium (Colace) 250 mg PO DAILY [facility] Stop: 06/24/19 20:59 Last Admin: 04/28/19 08:12 Dose: 250 mg Donepezil HCl (Aricept) 10 mg PO HS [facility] Stop: 06/23/19 20:59 Last Admin: 04/28/19 20:34 Dose: 10 mg Sodium Chloride (Nacl 0.9%) 1,000 mls @ 35 mls/hr IV .Q24H [facility] Stop: 06/25/19 11:44 Last Admin: 04/27/19 11:02 Dose: 35 mls/hr Vancomycin HCl 1.75 gm/ Sodium (Chloride) 500 mls @ 165 mls/hr IV Q12H [facility] Stop: 06/25/19 20:59 Last Admin: 04/28/19 20:35 Dose: 165 mls/hr Lamotrigine 200 mg/ (Lamotrigine 50 mg) 250 mg PO BID [facility] Stop: 06/23/19 08:59 Last Admin: 04/28/19 16:12 Dose: 250 mg Memantine (Namenda) 10 mg PO BID [facility] Stop: 06/23/19 08:59 Last Admin: 04/28/19 16:11 Dose: 10 mg Metoprolol Tartrate (Lopressor) 25 mg PO BID [facility] Stop: 06/23/19 08:59 Last Admin: 04/28/19 16:11 Dose: 25 mg Miscellaneous (Vancomycin Iv Per Pharmacy) 1 ea MC PRN PRN PRN Reason: PROTOCOL Stop: 06/23/19 14:50 Oxcarbazepine (Trileptal) 600 mg PO BID [facility] Stop: 06/23/19 08:59 Last Admin: 04/28/19 16:12 Dose: 600 mg General: Alert, Oriented x3, No acute distress HEENT: Atraumatic, PERRLA, EOMI Neck: Supple Cardiovascular: Regular rate, Normal S1, Normal S2 Abdomen: Bowel sounds, Soft Extremities: Edema (+2 edema) Neurological: Normal gait, Normal speech Skin: Rash (presence of erythema to the lower ext) Assessment/Plan - Assessment Assessment: hyponatremia improving Na -- 130 sepsis leukocytosis WBC -- 11K cellulitis to the left lower extremities ... continue IV Vanco per ID LLL PNA repeat CXR Rhabdomylosis CK 1065-->474 elevated lactic acid --> 3.4-->1.49 HTN controlled CAD Dyslipidemia Seizure d/o ... neuro consult dementia weakness and fatigue encephalopathy stable CAD lower ext edema ... for doppler U/S venous and arterial negative for any significant stenosis - Plan Plan: repeat CBC,CMP continue IV Vancomycin per ID Nutritional Asmnt/Malnutr-PDOC - Dietary Evaluation Malnutrition Findings (Please click <Entered> for more info): Nutritional Asmnt/Malnutrition Start: 04/25/19 19: 05 Text: Status: Active Freq: Protocol: Document 04/25/19 19:05 PATRICK (Rec: 04/25/19 19:14 PATRICK [id number]) Nutritional Asmnt/Malnutrition Patient General Information Nutritional Screening High Risk Diagnosis SEPSIS, PNA, HYPONATREMIA Pertinent Medical Hx/Surgical Hx HTN, CAD, DYSLIPIDEMIA, SEIZURE DISORDER, DEMENTIA, WEAKNESS, ENCEPHALOPATHY Subjective Information VISITED PT TODAT DURING LUNCH, ENJOYING MEAL, PT STATED HE WAS ENJOYING FOODS PROVIDED, NO ADDITIONAL REQUESTS NURSING NOTED INTAKE 100-100- 100% HIGH NUTRITION RISK SCREENING DUE TO LOW TREASURE SCORE, PER WOUND CARE NURSE ASSESSMENT: "Skin assessment: 1. Left lower extremity: Edema (1+ pitting), and erythema, present on admission . 2. Bilateral lower extremities Edema (1+ pitting), present on admission. Recommend: No dressings needed . Continue to monitor sites every shift. Elevate bilateral lower extremities as tolerated for at least 20 minutes, twice a day 3. Sacral/Buttocks areas: Blanchable redness from IAD, present on admission. Recommend: Cleanse involved areas with mild soap and water . Pat dry. Apply moisture barrier cream to involved areas. Perform site care 4 times a day, and as needed for soiling. 4. Nose: Scab from chronic wound, present on admission. No odor, no drainage. Recommend: No dressing needed. Continue to monitor site every shift." DECREASED NUTRITION RISK TO LOW DUE TO INTACT SKIN, APPROPRIATE INTAKE Current Diet Order/ Nutrition Support [facility] SOFT Patient / S.O Can Pertinent Medications COLACE, LOPRESSOR Pertinent Labs WBC 15, HGB/HCT 13.4/40.4, NA 126, GLUC 120, ALB 3.5 Nutritional Hx/Data Height 1.73 m Height (Calculated Centimeters) 172.7 Current Weight (lbs) 108.862 kg Weight (Calculated Kilograms) 108.9 Weight (Calculated Grams) 398521.2 [place] Body Weight 154 LBS % [place] Body Weight 156 Body Mass Index (BMI) 36.5 Weight Status Obese GI Symptoms GI Symptoms None Last BM TODAY X1 Skin Integrity/Comment: TREASURE SCORE 12 Current %PO Good (75-100%) Estimated Nutritional Goals BEE in Kcals: Adj wt of IBW Calories/Kcals/Kg 25-30 Kcals Calculated 2601-5015 KCAL/DAY Protein: Adj wt of IBW Protein g/k.8-1 Protein Calculated 79-99 Fluid: ml 2.5-3 (1 ML/KCAL) Nutritional Problem 1. Problem Problem OVERWEIGHT/OBESE Etiology NUTRIENT OVERCONSUMPTION Signs/Symptoms: BMI 35.4 Intervention/Recommendation Comments CONTINUE CURRENT DIET, DUE TO CURRENT ILLNESS AND CONCERN FOR IMPROVED SKIN INTEGRITY, CALORIE RESTRICTION IS NOT RECOMMENDED Expected Outcomes/Goals Expected Outcomes/Goals PT TO CONSUME 75-100% NUTRIENT NEEDS DAILY RD TO F/UP IN 7 DAYS, MONITOR INTAKE, WEIGHT, SKIN INTEGRITY , LABS [address]
[2019-04-29 06:40] LABS: ANION GAP 9.6 (7.0-16.0); BUN - UREA NITROGEN 12 mg/dL (7-25); CALCIUM SERUM 8.9 mg/dL (8.6-10.3); CARBON DIOXIDE 26.4 mEq/L (21.0-31.0); CHLORIDE 98 mEq/L (98-107); CREATININE - SERUM 0.7 mg/dL (0.7-1.3); GFR AFRICAN-AMERICAN > 60.0 ml/min (>90); GFR NON AFRICAN-AMERICAN > 60.0 ml/min; GLUCOSE 102 mg/dL (70-105); SODIUM SERUM 130 mEq/L (136-145)
[2019-04-29] MEDS: Aspirin 81mg Chewable Tab PO SCH (08:18)
[2019-04-29] MEDS: VANCOMYCIN HCL IV SCH ×2 (10:21→21:01)
[2019-04-29] MEDS: SODIUM CHLORIDE 0.9% IV SCH ×2 (10:21→21:01)
[2019-04-29 11:11] LABS: RED BLOOD COUNT 3.74 Mil/cmm (3.80-5.80); WHITE BLOOD COUNT 9.6 Th/cmm (4.8-10.8)
[2019-04-29 11:12] LABS: % BASOPHILS 0.7 % (0.0-2.0); % EOSINOPHILS 2.7 % (0.0-5.0); % LYMPHOCYTES 16.7 % (20.0-50.0); % MONOCYTES 8.3 % (2.0-10.0); % NEUTROPHILS 71.6 % (40.0-80.0); BASOPHILE ABSOLUTE 0.1 Th/cumm (0-0.2); EOSINOPHILE ABSOLUTE 0.3 Th/cmm (0.1-0.4); HEMATOCRIT 35.8 % (41.0-60); LYMPHOCYTE ABSOLUTE 1.6 Th/cmm (1.5-3.0); MEAN CELL VOLUME 95.6 fl (80-99); MEAN CORPUSCULAR HEMOGLOBIN 32.1 pg (27.0-31.0); MEAN CORPUSCULAR HGB CONC 33.6 pg (28.0-36.0); MEAN PLATELET VOLUME 7.7 fl; MONOCYTE ABSOLUTE 0.8 Th/cmm (0.3-1.0); NEUTROPHILE ABSOLUTE 6.9 Th/cmm (1.8-8.0); PLATELET COUNT 342 Th/cmm (150-400); RED CELL DISTRIBUTION WIDTH 14.3 % (11.5-20.0)
--- NOTE | 2019-04-29 14:50 | Progress Notes ---
DATE: 04/28/2019 SUBJECTIVE: The patient appears to be doing okay. No distress, no shortness of breath. No cough. OBJECTIVE: VITAL SIGNS: Temperature 97.8, pulse 89, respirations 20. Blood pressure 146/89, saturation 97% on room air. CHEST: Good breath sounds. No wheezes or crackles. HEART: Regular rhythm. ABDOMEN: Soft. EXTREMITIES: Edema still in the left leg with significant erythema and swelling. LABORATORY DATA: WBC is 11.6, hemoglobin is 12.4, hematocrit 37.1, platelets 335. Sodium 130, potassium 3.6, BUN is 12, creatinine 0.7. IMPRESSION: 1. Pneumonia. 2. Cellulitis. PLAN: Last chest x-ray showed resolution of the pneumonia and atelectasis infiltrate, but still has significant cellulitis. ID will follow up on it to see if more testing is needed such as CT of the left lower extremity. JOB# [id number]
[2019-04-29] MEDS: Sodium Chloride 0.9% 1,000 ML IV SCH (16:43)
--- NOTE | 2019-04-29 23:52 | Progress Notes ---
DATE: 04/29/[address] Bess. SUBJECTIVE: Case was discussed with staff of the patient, reviewed records. He is on the medical floor because of sleepiness, fever, congestion, and cough. He is sleeping well, eating well. He denies any current intent to harm himself or anyone. Denies any auditory, visual hallucinations or paranoia. He denies having any side effects. He is on Aricept and Namenda. PLAN: The patient needs follow up with a psychiatrist when discharged. Thank you very much for allowing me to participate in the care of this most interesting gentleman. JOB# [id number]
--- NOTE | 2019-04-30 00:16 | Infectious Disease Prog Note ---
Infectious Disease Subjective - Review of Systems Service Date: 04/29/19 Subjective: There is no new change, no fever. Infectious Disease Objective - Results Result Diagrams: 04/29/19 06:02 04/29/19 06:02 Recent Labs: Laboratory Last Values WBC 9.6 Th/cmm (4.8-10.8) 04/29/19 06:02 Corrected WBC (auto) 20.1 Th/cmm 04/23/19 14:25 RBC 3.74 Mil/cmm (3.80-5.80) L 04/29/19 06:02 Hgb 12.0 gm/dL (12-16) 04/29/19 06:02 Hct 35.8 % (41.0-60) L 04/29/19 06:02 MCV 95.6 fl (80-99) 04/29/19 06:02 MCH 32.1 pg (27.0-31.0) H 04/29/19 06:02 MCHC Differential 33.6 pg (28.0-36.0) 04/29/19 06:02 RDW 14.3 % (11.5-20.0) 04/29/19 06:02 Plt Count 342 Th/cmm (150-400) 04/29/19 06:02 MPV 7.7 fl 04/29/19 06:02 Add Manual Diff YES 04/27/19 06:15 Neutrophils % 71.6 % (40.0-80.0) 04/29/19 06:02 Band Neutrophils % 6 % (0-10) 04/27/19 06:15 Lymphocytes % 16.7 % (20.0-50.0) L 04/29/19 06:02 Monocytes % 8.3 % (2.0-10.0) 04/29/19 06:02 Eosinophils % 2.7 % (0.0-5.0) 04/29/19 06:02 Basophils % 0.7 % (0.0-2.0) 04/29/19 06:02 Neutrophils (Manual) 80 % (40-80) 04/27/19 06:15 Lymphocytes 10 % (20-50) L 04/27/19 06:15 Monocytes 4 % (2-10) 04/27/19 06:15 Eosinophils 0 % (0-5) 04/27/19 06:15 Basophils 0 % (0-3) 04/27/19 06:15 Platelet Estimate ADEQUATE (NORMAL) 04/27/19 06:15 PT 11.6 SECONDS (9.5-11.5) H 04/23/19 14:25 INR 1.13 (0.5-1.4) 04/23/19 14:25 PTT (Actin FS) 28.9 SECONDS (26.0-38.0) 04/23/19 14:25 Sodium 130 mEq/L (136-145) L 04/29/19 06:02 Potassium 4.0 mEq/L (3.5-5.1) 04/29/19 06:02 Chloride 98 mEq/L (98-107) 04/29/19 06:02 Carbon Dioxide 26.4 mEq/L (21.0-31.0) 04/29/19 06:02 Anion Gap 9.6 (7.0-16.0) 04/29/19 06:02 BUN 12 mg/dL (7-25) 04/29/19 06:02 Creatinine 0.7 mg/dL (0.7-1.3) 04/29/19 06:02 Est GFR ( Amer) > 60.0 ml/min (>90) 04/29/19 06:02 Est GFR (Non-Af Amer) > 60.0 ml/min 04/29/19 06:02 BUN/Creatinine Ratio 17.1 04/29/19 06:02 Glucose 102 mg/dL (70-105) 04/29/19 06:02 POC Glucose 97 MG/DL (70 - 105) 04/23/19 16:53 Whole Bld Lactic Acid 1.49 mmol/L (0.60-1.99) 04/24/19 06:10 Uric Acid 2.0 mg/dL (4.4-7.6) L 04/26/19 08:00 Calcium 8.9 mg/dL (8.6-10.3) 04/29/19 06:02 Total Bilirubin 1.3 mg/dL (0.3-1.0) H 04/27/19 06:15 AST 23 U/L (13-39) 04/27/19 06:15 ALT 34 U/L (7-52) 04/27/19 06:15 Alkaline Phosphatase 240 U/L (34-104) H 04/27/19 06:15 Creatine Kinase 167 U/L (30-223) 04/26/19 08:00 CK-MB (CK-2) 1.2 ng/mL (0.6-6.3) 04/25/19 05:45 Troponin I 0.02 ng/mL (0.01-0.05) 04/23/19 14:25 Total Protein 5.9 gm/dL (6.0-8.3) L 04/27/19 06:15 Albumin 3.1 gm/dL (4.2-5.5) L 04/27/19 06:15 Globulin 2.8 gm/dL 04/27/19 06:15 Albumin/Globulin Ratio 1.1 (1.0-1.8) 04/27/19 06:15 Triglycerides 65 mg/dL (<150) 04/24/19 06:10 Cholesterol 126 mg/dL (<200) 04/24/19 06:10 LDL Cholesterol Direct 53 mg/dL (75-193) L 04/24/19 06:10 HDL Cholesterol 56 mg/dL (23-92) 04/24/19 06:10 TSH 0.85 uIU/ml (0.34-5.60) 04/24/19 06:10 Prolactin 8.9 ng/mL (4.0-15.2) 04/24/19 06:10 Urine Source MIDSTREAM 04/23/19 15:00 Urine Color YELLOW 04/23/19 15:00 Urine Clarity SLIGHT HAZY (CLEAR) 04/23/19 15:00 Urine pH 5.5 (4.6 - 8.0) 04/23/19 15:00 Ur Specific [place] 1.015 (1.005-1.030) 04/23/19 15:00 Urine Protein >=300 mg/dL (NEGATIVE) 04/23/19 15:00 Urine Glucose (UA) NEGATIVE mg/dL (NEGATIVE) 04/23/19 15:00 Urine Ketones TRACE mg/dL (NEGATIVE) 04/23/19 15:00 Urine Blood LARGE (NEGATIVE) H 04/23/19 15:00 Urine Nitrate NEGATIVE (NEGATIVE) 04/23/19 15:00 Urine Bilirubin NEGATIVE (NEGATIVE) 04/23/19 15:00 Urine Urobilinogen 1.0 E.U./dL (0.2 - 1.0) 04/23/19 15:00 Ur Leukocyte Esterase NEGATIVE (NEGATIVE) 04/23/19 15:00 Urine RBC 2-5 /hpf (0-5) H 04/23/19 15:00 Urine WBC 2-5 /hpf (0-5) 04/23/19 15:00 Ur Epithelial Cells RARE /lpf (FEW) 04/23/19 15:00 Urine Bacteria OCCASIONAL /hpf (NONE SEEN) 04/23/19 15:00 Vancomycin Trough 14.3 ug/mL (5-10) H 04/28/19 08:00 - Physical Exam Vitals and I&O: Vital Signs Temp 97.4 F 04/29/19 20:00 Pulse 75 04/29/19 20:00 Resp 18 04/29/19 21:00 BP 102/57 04/29/19 20:00 Pulse Ox 96 04/29/19 20:00 Intake & Output 04/29/19 04/29/19 04/30/19 06:59 18:59 06:59 Intake Total 1500 700 Balance 1500 700 Weight (lbs) 111.13 kg Intake: Intake, IV Amount 1500 500 Sodium Chloride 0.9% 1, 1000 000 ml @ 35 mls/hr IV . Q24H [facility] Rx#:[id number] Vancomycin HCl 1.75 gm In 500 500 Sodium Chloride 0.9% 500 ml @ 165 mls/hr IV Q12H [facility] Rx#:[id number] Oral 200 Other: # Voids 4 # Bowel Movements 2 Weight Source Bedscale Active Medications: Current Medications Amlodipine Besylate (Norvasc) 10 mg PO DAILY [facility] Stop: 06/23/19 08:59 Last Admin: 04/29/19 08:18 Dose: 10 mg Aspirin (Aspirin Chewable) 81 mg PO DAILY [facility] Stop: 06/23/19 08:59 Last Admin: 04/29/19 08:18 Dose: 81 mg Clonazepam (Klonopin) 0.5 mg PO BID [facility]; Protocol Stop: 06/23/19 08:59 Last Admin: 04/29/19 16:45 Dose: 0.5 mg Docusate Sodium (Colace) 250 mg PO DAILY [facility] Stop: 06/24/19 20:59 Last Admin: 04/29/19 08:17 Dose: 250 mg Donepezil HCl (Aricept) 10 mg PO [facility] Stop: 06/23/19 20:59 Last Admin: 04/29/19 21:02 Dose: 10 mg Sodium Chloride (Nacl 0.9%) 1,000 mls @ 35 mls/hr IV .Q24H [facility] Stop: 06/25/19 11:44 Last Admin: 04/29/19 16:43 Dose: 35 mls/hr Vancomycin HCl 1.75 gm/ Sodium (Chloride) 500 mls @ 165 mls/hr IV Q12H [facility] Stop: 06/25/19 20:59 Last Admin: 04/29/19 21:01 Dose: 165 mls/hr Lamotrigine 200 mg/ (Lamotrigine 50 mg) 250 mg PO BID [facility] Stop: 06/23/19 08:59 Last Admin: 04/29/19 16:44 Dose: 250 mg Memantine (Namenda) 10 mg PO BID [facility] Stop: 06/23/19 08:59 Last Admin: 04/29/19 16:44 Dose: 10 mg Metoprolol Tartrate (Lopressor) 25 mg PO BID [facility] Stop: 06/23/19 08:59 Last Admin: 04/29/19 16:45 Dose: 25 mg Miscellaneous (Vancomycin Iv Per Pharmacy) 1 ea MC PRN PRN PRN Reason: PROTOCOL Stop: 06/23/19 14:50 Oxcarbazepine (Trileptal) 600 mg PO BID [facility] Stop: 06/23/19 08:59 Last Admin: 04/29/19 16:44 Dose: 600 mg General: no acute distress, well developed, well nourished HEENT: atraumatic, normocephalic, PERRLA, EOMI, moist mucous membrane Neck: supple, no thyromegaly Cardiovascular: S1S2, regular Lungs: clear to auscultation bilaterally, clear to percussion Abdomen: soft, no tender, no distended, no mass, no rebound, no hepatomegaly Extremities: other (swelling of the left leg, decreased erythema), no cyanosis, no clubbing, no edema Neurological: awake, alert, oriented Skin: intact Infectious Disease Assmt/Plan - Assessment Assessment: 1. Sepsis. severe sepsis with lactic acidosis. 2. Left leg cellulitis. 3. Susoect Pneumonia. 4. HTN. 5. Rhabdomyolysis. 6. Hyponatremia. 7. Dementia. - Plan Plan: Will continue vanco IV x 10 days, and Zosyn. Nutritional Asmnt/Malnutr-PDOC - Dietary Evaluation Malnutrition Findings (Please click <Entered> for more info): Nutritional Asmnt/Malnutrition Start: 04/25/19 19: 05 Text: Status: Active Freq: Protocol: Document 04/25/19 19:05 PATRICK (Rec: 04/25/19 19:14 PATRICK [email or web address] [id number]) Nutritional Asmnt/Malnutrition Patient General Information Nutritional Screening High Risk Diagnosis SEPSIS, PNA, HYPONATREMIA Pertinent Medical Hx/Surgical Hx HTN, CAD, DYSLIPIDEMIA, SEIZURE DISORDER, DEMENTIA, WEAKNESS, ENCEPHALOPATHY Subjective Information VISITED PT TODAT DURING LUNCH, ENJOYING MEAL, PT STATED HE WAS ENJOYING FOODS PROVIDED, NO ADDITIONAL REQUESTS NURSING NOTED INTAKE 100-100- 100% HIGH NUTRITION RISK SCREENING DUE TO LOW TREASURE SCORE, PER WOUND CARE NURSE ASSESSMENT: "Skin assessment: 1. Left lower extremity: Edema (1+ pitting), and erythema, present on admission . 2. Bilateral lower extremities Edema (1+ pitting), present on admission. Recommend: No dressings needed . Continue to monitor sites every shift. Elevate bilateral lower extremities as tolerated for at least 20 minutes, twice a day 3. Sacral/Buttocks areas: Blanchable redness from IAD, present on admission. Recommend: Cleanse involved areas with mild soap and water . Pat dry. Apply moisture barrier cream to involved areas. Perform site care 4 times a day, and as needed for soiling. 4. Nose: Scab from chronic wound, present on admission. No odor, no drainage. Recommend: No dressing needed. Continue to monitor site every shift." DECREASED NUTRITION RISK TO LOW DUE TO INTACT SKIN, APPROPRIATE INTAKE Current Diet Order/ Nutrition Support [facility] SOFT Patient / S.O Can Pertinent Medications COLACE, LOPRESSOR Pertinent Labs WBC 15, HGB/HCT 13.4/40.4, NA 126, GLUC 120, ALB 3.5 Nutritional Hx/Data Height 1.73 m Height (Calculated Centimeters) 172.7 Current Weight (lbs) 108.862 kg Weight (Calculated Kilograms) 108.9 Weight (Calculated Grams) 854894.2 [place] Body Weight 154 LBS % [place] Body Weight 156 Body Mass Index (BMI) 36.5 Weight Status Obese GI Symptoms GI Symptoms None Last BM TODAY X1 Skin Integrity/Comment: TREASURE SCORE 12 Current %PO Good (75-100%) Estimated Nutritional Goals BEE in Kcals: Adj wt of IBW Calories/Kcals/Kg 25-30 Kcals Calculated [id number] KCAL/DAY Protein: Adj wt of IBW Protein g/k.8-1 Protein Calculated 79-99 Fluid: ml 2.5-3 (1 ML/KCAL) Nutritional Problem 1. Problem Problem OVERWEIGHT/OBESE Etiology NUTRIENT OVERCONSUMPTION Signs/Symptoms: BMI 35.4 Intervention/Recommendation Comments CONTINUE CURRENT DIET, DUE TO CURRENT ILLNESS AND CONCERN FOR IMPROVED SKIN INTEGRITY, CALORIE RESTRICTION IS NOT RECOMMENDED Expected Outcomes/Goals Expected Outcomes/Goals PT TO CONSUME 75-100% NUTRIENT NEEDS DAILY RD TO F/UP IN 7 DAYS, MONITOR INTAKE, WEIGHT, SKIN INTEGRITY , LABS [address]ELIO [address] RD
--- NOTE | 2019-04-30 08:32 | General Progress Note ---
Subjective - Review of Systems Service Date: 04/30/19 Subjective: Patient is feeling better.Awake, alert, afebrile left lower extremities improved. less erythema and decreased swelling . Venous and Arterial doppler negative Objective - Results Result Diagrams: 04/29/19 06:02 04/29/19 06:02 Recent Labs: Laboratory Last Values WBC 9.6 Th/cmm (4.8-10.8) 04/29/19 06:02 Corrected WBC (auto) 20.1 Th/cmm 04/23/19 14:25 RBC 3.74 Mil/cmm (3.80-5.80) L 04/29/19 06:02 Hgb 12.0 gm/dL (12-16) 04/29/19 06:02 Hct 35.8 % (41.0-60) L 04/29/19 06:02 MCV 95.6 fl (80-99) 04/29/19 06:02 MCH 32.1 pg (27.0-31.0) H 04/29/19 06:02 MCHC Differential 33.6 pg (28.0-36.0) 04/29/19 06:02 RDW 14.3 % (11.5-20.0) 04/29/19 06:02 Plt Count 342 Th/cmm (150-400) 04/29/19 06:02 MPV 7.7 fl 04/29/19 06:02 Add Manual Diff YES 04/27/19 06:15 Neutrophils % 71.6 % (40.0-80.0) 04/29/19 06:02 Band Neutrophils % 6 % (0-10) 04/27/19 06:15 Lymphocytes % 16.7 % (20.0-50.0) L 04/29/19 06:02 Monocytes % 8.3 % (2.0-10.0) 04/29/19 06:02 Eosinophils % 2.7 % (0.0-5.0) 04/29/19 06:02 Basophils % 0.7 % (0.0-2.0) 04/29/19 06:02 Neutrophils (Manual) 80 % (40-80) 04/27/19 06:15 Lymphocytes 10 % (20-50) L 04/27/19 06:15 Monocytes 4 % (2-10) 04/27/19 06:15 Eosinophils 0 % (0-5) 04/27/19 06:15 Basophils 0 % (0-3) 04/27/19 06:15 Platelet Estimate ADEQUATE (NORMAL) 04/27/19 06:15 PT 11.6 SECONDS (9.5-11.5) H 04/23/19 14:25 INR 1.13 (0.5-1.4) 04/23/19 14:25 PTT (Actin FS) 28.9 SECONDS (26.0-38.0) 04/23/19 14:25 Sodium 130 mEq/L (136-145) L 04/29/19 06:02 Potassium 4.0 mEq/L (3.5-5.1) 04/29/19 06:02 Chloride 98 mEq/L (98-107) 04/29/19 06:02 Carbon Dioxide 26.4 mEq/L (21.0-31.0) 04/29/19 06:02 Anion Gap 9.6 (7.0-16.0) 04/29/19 06:02 BUN 12 mg/dL (7-25) 04/29/19 06:02 Creatinine 0.7 mg/dL (0.7-1.3) 04/29/19 06:02 Est GFR ( Amer) > 60.0 ml/min (>90) 04/29/19 06:02 Est GFR (Non-Af Amer) > 60.0 ml/min 04/29/19 06:02 BUN/Creatinine Ratio 17.1 04/29/19 06:02 Glucose 102 mg/dL (70-105) 04/29/19 06:02 POC Glucose 97 MG/DL (70 - 105) 04/23/19 16:53 Whole Bld Lactic Acid 1.49 mmol/L (0.60-1.99) 04/24/19 06:10 Uric Acid 2.0 mg/dL (4.4-7.6) L 04/26/19 08:00 Calcium 8.9 mg/dL (8.6-10.3) 04/29/19 06:02 Total Bilirubin 1.3 mg/dL (0.3-1.0) H 04/27/19 06:15 AST 23 U/L (13-39) 04/27/19 06:15 ALT 34 U/L (7-52) 04/27/19 06:15 Alkaline Phosphatase 240 U/L (34-104) H 04/27/19 06:15 Creatine Kinase 167 U/L (30-223) 04/26/19 08:00 CK-MB (CK-2) 1.2 ng/mL (0.6-6.3) 04/25/19 05:45 Troponin I 0.02 ng/mL (0.01-0.05) 04/23/19 14:25 Total Protein 5.9 gm/dL (6.0-8.3) L 04/27/19 06:15 Albumin 3.1 gm/dL (4.2-5.5) L 04/27/19 06:15 Globulin 2.8 gm/dL 04/27/19 06:15 Albumin/Globulin Ratio 1.1 (1.0-1.8) 04/27/19 06:15 Triglycerides 65 mg/dL (<150) 04/24/19 06:10 Cholesterol 126 mg/dL (<200) 04/24/19 06:10 LDL Cholesterol Direct 53 mg/dL (75-193) L 04/24/19 06:10 HDL Cholesterol 56 mg/dL (23-92) 04/24/19 06:10 TSH 0.85 uIU/ml (0.34-5.60) 04/24/19 06:10 Prolactin 8.9 ng/mL (4.0-15.2) 04/24/19 06:10 Urine Source MIDSTREAM 04/23/19 15:00 Urine Color YELLOW 04/23/19 15:00 Urine Clarity SLIGHT HAZY (CLEAR) 04/23/19 15:00 Urine pH 5.5 (4.6 - 8.0) 04/23/19 15:00 Ur Specific [place] 1.015 (1.005-1.030) 04/23/19 15:00 Urine Protein >=300 mg/dL (NEGATIVE) 04/23/19 15:00 Urine Glucose (UA) NEGATIVE mg/dL (NEGATIVE) 04/23/19 15:00 Urine Ketones TRACE mg/dL (NEGATIVE) 04/23/19 15:00 Urine Blood LARGE (NEGATIVE) H 04/23/19 15:00 Urine Nitrate NEGATIVE (NEGATIVE) 04/23/19 15:00 Urine Bilirubin NEGATIVE (NEGATIVE) 04/23/19 15:00 Urine Urobilinogen 1.0 E.U./dL (0.2 - 1.0) 04/23/19 15:00 Ur Leukocyte Esterase NEGATIVE (NEGATIVE) 04/23/19 15:00 Urine RBC 2-5 /hpf (0-5) H 04/23/19 15:00 Urine WBC 2-5 /hpf (0-5) 04/23/19 15:00 Ur Epithelial Cells RARE /lpf (FEW) 04/23/19 15:00 Urine Bacteria OCCASIONAL /hpf (NONE SEEN) 04/23/19 15:00 Vancomycin Trough 14.3 ug/mL (5-10) H 04/28/19 08:00 - Physical Exam Vitals and I&O: Vital Signs Temp 97.6 F 04/30/19 04:00 Pulse 82 04/30/19 04:00 Resp 18 04/30/19 05:00 BP 127/64 04/30/19 04:00 Pulse Ox 97 04/30/19 04:00 Intake & Output 04/29/19 04/30/19 04/30/19 18:59 06:59 18:59 Intake Total 700 50 Balance 700 50 Weight (lbs) 111.13 kg 111.13 kg Intake: Intake, IV Amount 500 Vancomycin HCl 1.75 gm In 500 Sodium Chloride 0.9% 500 ml @ 165 mls/hr IV Q12H [facility] Rx#:[id number] Oral 200 50 Other: # Voids 4 5 # Bowel Movements 2 1 Weight Source Bedscale Bedscale Active Medications: Current Medications Amlodipine Besylate (Norvasc) 10 mg PO DAILY [facility] Stop: 06/23/19 08:59 Last Admin: 04/29/19 08:18 Dose: 10 mg Aspirin (Aspirin Chewable) 81 mg PO DAILY [facility] Stop: 06/23/19 08:59 Last Admin: 04/29/19 08:18 Dose: 81 mg Clonazepam (Klonopin) 0.5 mg PO BID [facility]; Protocol Stop: 06/23/19 08:59 Last Admin: 04/29/19 16:45 Dose: 0.5 mg Docusate Sodium (Colace) 250 mg PO DAILY [facility] Stop: 06/24/19 20:59 Last Admin: 04/29/19 08:17 Dose: 250 mg Donepezil HCl (Aricept) 10 mg PO HS [facility] Stop: 06/23/19 20:59 Last Admin: 04/29/19 21:02 Dose: 10 mg Sodium Chloride (Nacl 0.9%) 1,000 mls @ 35 mls/hr IV .Q24H [facility] Stop: 06/25/19 11:44 Last Admin: 04/29/19 16:43 Dose: 35 mls/hr Vancomycin HCl 1.75 gm/ Sodium (Chloride) 500 mls @ 165 mls/hr IV Q12H [facility] Stop: 06/25/19 20:59 Last Admin: 04/29/19 21:01 Dose: 165 mls/hr Lamotrigine 200 mg/ (Lamotrigine 50 mg) 250 mg PO BID [facility] Stop: 06/23/19 08:59 Last Admin: 04/29/19 16:44 Dose: 250 mg Memantine (Namenda) 10 mg PO BID [facility] Stop: 06/23/19 08:59 Last Admin: 04/29/19 16:44 Dose: 10 mg Metoprolol Tartrate (Lopressor) 25 mg PO BID [facility] Stop: 06/23/19 08:59 Last Admin: 04/29/19 16:45 Dose: 25 mg Miscellaneous (Vancomycin Iv Per Pharmacy) 1 ea MC PRN PRN PRN Reason: PROTOCOL Stop: 06/23/19 14:50 Oxcarbazepine (Trileptal) 600 mg PO BID [facility] Stop: 06/23/19 08:59 Last Admin: 04/29/19 16:44 Dose: 600 mg General: Alert, Oriented x3, No acute distress HEENT: Atraumatic, PERRLA, EOMI Neck: Supple Cardiovascular: Regular rate, Normal S1, Normal S2 Abdomen: Bowel sounds, Soft Extremities: Edema (+2 edema) Neurological: Normal gait, Normal speech Skin: Rash (presence of erythema to the lower ext) Assessment/Plan - Assessment Assessment: hyponatremia improving Na -- 130 sepsis leukocytosis WBC -- 11K cellulitis to the left lower extremities ... continue IV Vanco per ID LLL PNA repeat CXR Rhabdomylosis CK 1065-->474 elevated lactic acid --> 3.4-->1.49 HTN controlled CAD Dyslipidemia Seizure d/o ... neuro consult dementia weakness and fatigue encephalopathy stable CAD lower ext edema ... for doppler U/S venous and arterial negative for any significant stenosis - Plan Plan: repeat CBC,CMP continue IV Vancomycin per ID maybe discharge back to SNF today Nutritional Asmnt/Malnutr-PDOC - Dietary Evaluation Malnutrition Findings (Please click <Entered> for more info): Nutritional Asmnt/Malnutrition Start: 04/25/19 19: 05 Text: Status: Active Freq: Protocol: Document 04/25/19 19:05 PATRICK (Rec: 04/25/19 19:14 PATRICK [id number] [id number]) Nutritional Asmnt/Malnutrition Patient General Information Nutritional Screening High Risk Diagnosis SEPSIS, PNA, HYPONATREMIA Pertinent Medical Hx/Surgical Hx HTN, CAD, DYSLIPIDEMIA, SEIZURE DISORDER, DEMENTIA, WEAKNESS, ENCEPHALOPATHY Subjective Information VISITED PT TODAT DURING LUNCH, ENJOYING MEAL, PT STATED HE WAS ENJOYING FOODS PROVIDED, NO ADDITIONAL REQUESTS NURSING NOTED INTAKE 100-100- 100% HIGH NUTRITION RISK SCREENING DUE TO LOW TREASURE SCORE, PER WOUND CARE NURSE ASSESSMENT: "Skin assessment: 1. Left lower extremity: Edema (1+ pitting), and erythema, present on admission . 2. Bilateral lower extremities Edema (1+ pitting), present on admission. Recommend: No dressings needed . Continue to monitor sites every shift. Elevate bilateral lower extremities as tolerated for at least 20 minutes, twice a day 3. Sacral/Buttocks areas: Blanchable redness from IAD, present on admission. Recommend: Cleanse involved areas with mild soap and water . Pat dry. Apply moisture barrier cream to involved areas. Perform site care 4 times a day, and as needed for soiling. 4. Nose: Scab from chronic wound, present on admission. No odor, no drainage. Recommend: No dressing needed. Continue to monitor site every shift." DECREASED NUTRITION RISK TO LOW DUE TO INTACT SKIN, APPROPRIATE INTAKE Current Diet Order/ Nutrition Support [facility] SOFT Patient / S.O Can Pertinent Medications COLACE, LOPRESSOR Pertinent Labs WBC 15, HGB/HCT 13.4/40.4, NA 126, GLUC 120, ALB 3.5 Nutritional Hx/Data Height 1.73 m Height (Calculated Centimeters) 172.7 Current Weight (lbs) 108.862 kg Weight (Calculated Kilograms) 108.9 Weight (Calculated Grams) 692804.2 [place] Body Weight 154 LBS % [place] Body Weight 156 Body Mass Index (BMI) 36.5 Weight Status Obese GI Symptoms GI Symptoms None Last BM TODAY X1 Skin Integrity/Comment: TREASURE SCORE 12 Current %PO Good (75-100%) Estimated Nutritional Goals BEE in Kcals: Adj wt of IBW Calories/Kcals/Kg 25-30 Kcals Calculated 9764-9983 KCAL/DAY Protein: Adj wt of IBW Protein g/k.8-1 Protein Calculated 79-99 Fluid: ml 2.5-3 (1 ML/KCAL) Nutritional Problem 1. Problem Problem OVERWEIGHT/OBESE Etiology NUTRIENT OVERCONSUMPTION Signs/Symptoms: BMI 35.4 Intervention/Recommendation Comments CONTINUE CURRENT DIET, DUE TO CURRENT ILLNESS AND CONCERN FOR IMPROVED SKIN INTEGRITY, CALORIE RESTRICTION IS NOT RECOMMENDED Expected Outcomes/Goals Expected Outcomes/Goals PT TO CONSUME 75-100% NUTRIENT NEEDS DAILY RD TO F/UP IN 7 DAYS, MONITOR INTAKE, WEIGHT, SKIN INTEGRITY , LABS EVELIO MAY RD
[2019-04-30] MEDS: Aspirin 81mg Chewable Tab PO SCH (08:37)
[2019-04-30] MEDS: VANCOMYCIN HCL IV SCH (09:54)
[2019-04-30] MEDS: SODIUM CHLORIDE 0.9% IV SCH (09:54)
--- NOTE | 2019-04-30 11:06 | Infectious Disease Prog Note ---
Infectious Disease Subjective - Review of Systems Service Date: 04/30/19 Subjective: There is no new change, no fever. Infectious Disease Objective - Results Result Diagrams: 04/29/19 06:02 04/29/19 06:02 Recent Labs: Laboratory Last Values WBC 9.6 Th/cmm (4.8-10.8) 04/29/19 06:02 Corrected WBC (auto) 20.1 Th/cmm 04/23/19 14:25 RBC 3.74 Mil/cmm (3.80-5.80) L 04/29/19 06:02 Hgb 12.0 gm/dL (12-16) 04/29/19 06:02 Hct 35.8 % (41.0-60) L 04/29/19 06:02 MCV 95.6 fl (80-99) 04/29/19 06:02 MCH 32.1 pg (27.0-31.0) H 04/29/19 06:02 MCHC Differential 33.6 pg (28.0-36.0) 04/29/19 06:02 RDW 14.3 % (11.5-20.0) 04/29/19 06:02 Plt Count 342 Th/cmm (150-400) 04/29/19 06:02 MPV 7.7 fl 04/29/19 06:02 Add Manual Diff YES 04/27/19 06:15 Neutrophils % 71.6 % (40.0-80.0) 04/29/19 06:02 Band Neutrophils % 6 % (0-10) 04/27/19 06:15 Lymphocytes % 16.7 % (20.0-50.0) L 04/29/19 06:02 Monocytes % 8.3 % (2.0-10.0) 04/29/19 06:02 Eosinophils % 2.7 % (0.0-5.0) 04/29/19 06:02 Basophils % 0.7 % (0.0-2.0) 04/29/19 06:02 Neutrophils (Manual) 80 % (40-80) 04/27/19 06:15 Lymphocytes 10 % (20-50) L 04/27/19 06:15 Monocytes 4 % (2-10) 04/27/19 06:15 Eosinophils 0 % (0-5) 04/27/19 06:15 Basophils 0 % (0-3) 04/27/19 06:15 Platelet Estimate ADEQUATE (NORMAL) 04/27/19 06:15 PT 11.6 SECONDS (9.5-11.5) H 04/23/19 14:25 INR 1.13 (0.5-1.4) 04/23/19 14:25 PTT (Actin FS) 28.9 SECONDS (26.0-38.0) 04/23/19 14:25 Sodium 130 mEq/L (136-145) L 04/29/19 06:02 Potassium 4.0 mEq/L (3.5-5.1) 04/29/19 06:02 Chloride 98 mEq/L (98-107) 04/29/19 06:02 Carbon Dioxide 26.4 mEq/L (21.0-31.0) 04/29/19 06:02 Anion Gap 9.6 (7.0-16.0) 04/29/19 06:02 BUN 12 mg/dL (7-25) 04/29/19 06:02 Creatinine 0.7 mg/dL (0.7-1.3) 04/29/19 06:02 Est GFR ( Amer) > 60.0 ml/min (>90) 04/29/19 06:02 Est GFR (Non-Af Amer) > 60.0 ml/min 04/29/19 06:02 BUN/Creatinine Ratio 17.1 04/29/19 06:02 Glucose 102 mg/dL (70-105) 04/29/19 06:02 POC Glucose 97 MG/DL (70 - 105) 04/23/19 16:53 Whole Bld Lactic Acid 1.49 mmol/L (0.60-1.99) 04/24/19 06:10 Uric Acid 2.0 mg/dL (4.4-7.6) L 04/26/19 08:00 Calcium 8.9 mg/dL (8.6-10.3) 04/29/19 06:02 Total Bilirubin 1.3 mg/dL (0.3-1.0) H 04/27/19 06:15 AST 23 U/L (13-39) 04/27/19 06:15 ALT 34 U/L (7-52) 04/27/19 06:15 Alkaline Phosphatase 240 U/L (34-104) H 04/27/19 06:15 Creatine Kinase 167 U/L (30-223) 04/26/19 08:00 CK-MB (CK-2) 1.2 ng/mL (0.6-6.3) 04/25/19 05:45 Troponin I 0.02 ng/mL (0.01-0.05) 04/23/19 14:25 Total Protein 5.9 gm/dL (6.0-8.3) L 04/27/19 06:15 Albumin 3.1 gm/dL (4.2-5.5) L 04/27/19 06:15 Globulin 2.8 gm/dL 04/27/19 06:15 Albumin/Globulin Ratio 1.1 (1.0-1.8) 04/27/19 06:15 Triglycerides 65 mg/dL (<150) 04/24/19 06:10 Cholesterol 126 mg/dL (<200) 04/24/19 06:10 LDL Cholesterol Direct 53 mg/dL (75-193) L 04/24/19 06:10 HDL Cholesterol 56 mg/dL (23-92) 04/24/19 06:10 TSH 0.85 uIU/ml (0.34-5.60) 04/24/19 06:10 Prolactin 8.9 ng/mL (4.0-15.2) 04/24/19 06:10 Urine Source MIDSTREAM 04/23/19 15:00 Urine Color YELLOW 04/23/19 15:00 Urine Clarity SLIGHT HAZY (CLEAR) 04/23/19 15:00 Urine pH 5.5 (4.6 - 8.0) 04/23/19 15:00 Ur Specific [place] 1.015 (1.005-1.030) 04/23/19 15:00 Urine Protein >=300 mg/dL (NEGATIVE) 04/23/19 15:00 Urine Glucose (UA) NEGATIVE mg/dL (NEGATIVE) 04/23/19 15:00 Urine Ketones TRACE mg/dL (NEGATIVE) 04/23/19 15:00 Urine Blood LARGE (NEGATIVE) H 04/23/19 15:00 Urine Nitrate NEGATIVE (NEGATIVE) 04/23/19 15:00 Urine Bilirubin NEGATIVE (NEGATIVE) 04/23/19 15:00 Urine Urobilinogen 1.0 E.U./dL (0.2 - 1.0) 04/23/19 15:00 Ur Leukocyte Esterase NEGATIVE (NEGATIVE) 04/23/19 15:00 Urine RBC 2-5 /hpf (0-5) H 04/23/19 15:00 Urine WBC 2-5 /hpf (0-5) 04/23/19 15:00 Ur Epithelial Cells RARE /lpf (FEW) 04/23/19 15:00 Urine Bacteria OCCASIONAL /hpf (NONE SEEN) 04/23/19 15:00 Vancomycin Trough 15.7 ug/mL (5-10) H 04/30/19 08:30 - Physical Exam Vitals and I&O: Vital Signs Temp 98.1 F 04/30/19 08:00 Pulse 69 04/30/19 08:33 Resp 18 04/30/19 08:00 BP 107/77 04/30/19 08:33 Pulse Ox 94 04/30/19 08:00 Intake & Output 04/29/19 04/30/19 04/30/19 18:59 06:59 18:59 Intake Total 700 550 Balance 700 550 Weight (lbs) 111.13 kg 111.13 kg Intake: Intake, IV Amount 500 500 Vancomycin HCl 1.75 gm In 500 500 Sodium Chloride 0.9% 500 ml @ 165 mls/hr IV Q12H [facility] Rx#:[id number] Oral 200 50 Other: # Voids 4 5 # Bowel Movements 2 1 Weight Source Bedscale Bedscale Active Medications: Current Medications Amlodipine Besylate (Norvasc) 10 mg PO DAILY [facility] Stop: 06/23/19 08:59 Last Admin: 04/30/19 08:32 Dose: Not Given Aspirin (Aspirin Chewable) 81 mg PO DAILY [facility] Stop: 06/23/19 08:59 Last Admin: 04/30/19 08:37 Dose: 81 mg Clonazepam (Klonopin) 0.5 mg PO BID [facility]; Protocol Stop: 06/23/19 08:59 Last Admin: 04/30/19 08:37 Dose: 0.5 mg Docusate Sodium (Colace) 250 mg PO DAILY [facility] Stop: 06/24/19 20:59 Last Admin: 04/30/19 08:37 Dose: 250 mg Donepezil HCl (Aricept) 10 mg PO [facility] Stop: 06/23/19 20:59 Last Admin: 04/29/19 21:02 Dose: 10 mg Sodium Chloride (Nacl 0.9%) 1,000 mls @ 35 mls/hr IV .Q24H [facility] Stop: 06/25/19 11:44 Last Admin: 04/29/19 16:43 Dose: 35 mls/hr Vancomycin HCl 1.75 gm/ Sodium (Chloride) 500 mls @ 165 mls/hr IV Q12H [facility] Stop: 06/25/19 20:59 Last Admin: 04/30/19 09:54 Dose: 165 mls/hr Lamotrigine 200 mg/ (Lamotrigine 50 mg) 250 mg PO BID [facility] Stop: 06/23/19 08:59 Last Admin: 04/30/19 08:37 Dose: 250 mg Memantine (Namenda) 10 mg PO BID [facility] Stop: 06/23/19 08:59 Last Admin: 04/30/19 08:38 Dose: 10 mg Metoprolol Tartrate (Lopressor) 25 mg PO BID [facility] Stop: 06/23/19 08:59 Last Admin: 04/30/19 08:33 Dose: Not Given Miscellaneous (Vancomycin Iv Per Pharmacy) 1 [facility] PRN PRN PRN Reason: PROTOCOL Stop: 06/23/19 14:50 Oxcarbazepine (Trileptal) 600 mg PO BID [facility] Stop: 06/23/19 08:59 Last Admin: 04/30/19 08:38 Dose: 600 mg General: no acute distress, well developed, well nourished HEENT: atraumatic, normocephalic, PERRLA Neck: supple, no thyromegaly Cardiovascular: S1S2, regular Lungs: clear to auscultation bilaterally, clear to percussion Abdomen: soft, no tender, no distended, no mass, no rebound Extremities: other (swelling of the left leg, erythhema ), no cyanosis, no clubbing, no edema Neurological: awake, alert, oriented Skin: intact Infectious Disease Assmt/Plan - Assessment Assessment: 1. Sepsis. severe sepsis with lactic acidosis. 2. Left leg cellulitis. 3. Susoect Pneumonia. 4. HTN. 5. Rhabdomyolysis. 6. Hyponatremia. 7. Dementia. - Plan Plan: Will continue vanco IV x 10 days, and dc Zosyn. May have one follow up visit to the clinic to decide on any need of oral or IV antibiotics. NO PICC line at this time. Nutritional Asmnt/Malnutr-PDOC - Dietary Evaluation Malnutrition Findings (Please click <Entered> for more info): Nutritional Asmnt/Malnutrition Start: 04/25/19 19: 05 Text: Status: Active Freq: Protocol: Document 04/25/19 19:05 PATRICK (Rec: 04/25/19 19:14 ROCIOUS [id number]) Nutritional Asmnt/Malnutrition Patient General Information Nutritional Screening High Risk Diagnosis SEPSIS, PNA, HYPONATREMIA Pertinent Medical Hx/Surgical Hx HTN, CAD, DYSLIPIDEMIA, SEIZURE DISORDER, DEMENTIA, WEAKNESS, ENCEPHALOPATHY Subjective Information VISITED PT TODAT DURING LUNCH, ENJOYING MEAL, PT STATED HE WAS ENJOYING FOODS PROVIDED, NO ADDITIONAL REQUESTS NURSING NOTED INTAKE 100-100- 100% HIGH NUTRITION RISK SCREENING DUE TO LOW TREASURE SCORE, PER WOUND CARE NURSE ASSESSMENT: "Skin assessment: 1. Left lower extremity: Edema (1+ pitting), and erythema, present on admission . 2. Bilateral lower extremities Edema (1+ pitting), present on admission. Recommend: No dressings needed . Continue to monitor sites every shift. Elevate bilateral lower extremities as tolerated for at least 20 minutes, twice a day 3. Sacral/Buttocks areas: Blanchable redness from IAD, present on admission. Recommend: Cleanse involved areas with mild soap and water . Pat dry. Apply moisture barrier cream to involved areas. Perform site care 4 times a day, and as needed for soiling. 4. Nose: Scab from chronic wound, present on admission. No odor, no drainage. Recommend: No dressing needed. Continue to monitor site every shift." DECREASED NUTRITION RISK TO LOW DUE TO INTACT SKIN, APPROPRIATE INTAKE Current Diet Order/ Nutrition Support [facility] SOFT Patient / S.O Can Pertinent Medications COLACE, LOPRESSOR Pertinent Labs WBC 15, HGB/HCT 13.4/40.4, NA 126, GLUC 120, ALB 3.5 Nutritional Hx/Data Height 1.73 m Height (Calculated Centimeters) 172.7 Current Weight (lbs) 108.862 kg Weight (Calculated Kilograms) 108.9 Weight (Calculated Grams) 398078.2 [place] Body Weight 154 LBS % [place] Body Weight 156 Body Mass Index (BMI) 36.5 Weight Status Obese GI Symptoms GI Symptoms None Last BM TODAY X1 Skin Integrity/Comment: TREASURE SCORE 12 Current %PO Good (75-100%) Estimated Nutritional Goals BEE in Kcals: Adj wt of IBW Calories/Kcals/Kg 25-30 Kcals Calculated [id number] KCAL/DAY Protein: Adj wt of IBW Protein g/k.8-1 Protein Calculated 79-99 Fluid: ml 2.5-3 (1 ML/KCAL) Nutritional Problem 1. Problem Problem OVERWEIGHT/OBESE Etiology NUTRIENT OVERCONSUMPTION Signs/Symptoms: BMI 35.4 Intervention/Recommendation Comments CONTINUE CURRENT DIET, DUE TO CURRENT ILLNESS AND CONCERN FOR IMPROVED SKIN INTEGRITY, CALORIE RESTRICTION IS NOT RECOMMENDED Expected Outcomes/Goals Expected Outcomes/Goals PT TO CONSUME 75-100% NUTRIENT NEEDS DAILY RD TO F/UP IN 7 DAYS, MONITOR INTAKE, WEIGHT, SKIN INTEGRITY , LABS [address]EL[address] RD
--- NOTE | 2019-05-02 09:19 | Discharge Summary ---
DATE OF DISCHARGE: 04/30/2019 PRELIMINARY DIAGNOSES: 1. Hyponatremia. 2. Sepsis. 3. Leukocytosis. 4. Cellulitis of the left lower extremity. 5. Left lower lobe pneumonia. 6. Rhabdomyolysis. 7. Elevated lactic acid. 8. Hypertension. 9. Coronary artery disease. 10. Dyslipidemia. 11. Seizure disorder. 12. Dementia. 13. Weakness and fatigue. 14. Encephalopathy. 15. Coronary artery disease. 16. Lower extremity edema. DISCHARGE DIAGNOSES: 1. Hyponatremia. 2. Sepsis. 3. Leukocytosis. 4. Cellulitis of the left lower extremity. 5. Left lower lobe pneumonia. 6. Rhabdomyolysis. 7. Elevated lactic acid. 8. Hypertension. 9. Coronary artery disease. 10. Dyslipidemia. 11. Seizure disorder. 12. Dementia. 13. Weakness and fatigue. 14. Encephalopathy. 15. Coronary artery disease. 16. Lower extremity edema. HISTORY OF PRESENT ILLNESS: This is a 68-year-old male who presents to [facility] ER for fever, chills, cough, congestion, weakness for the past 2 days, noted by the [place]. The patient has a history of hypertension, coronary artery disease, dyslipidemia, seizure disorder, dementia, weakness and encephalopathy. The patient was brought to the Emergency Room for evaluation. His initial lab work done revealed a white count of 20,000, hemoglobin 14, hematocrit 42, platelets 254, bands were 4, neutrophils 86, lymphocytes 5, monocytes 5. PT was 11.6, INR 1.1. Sodium was 121, potassium 4.3, chloride 87, bicarb 20, BUN 17, creatinine 1.2, glucose was 111. His lactic acid was 3.4, AST 28, ALT 19, alkaline phosphatase was 109. Creatinine kinase was 1065. CK-MB was 9.3. Troponin level 0.02. His urine test showed some large amount of blood, 2-5 red blood cells; however, no leukoesterase or nitrites. The patient was subsequently admitted for further evaluation and treatment. HOSPITAL COURSE: The patient did improve during his hospital stay. The patient was started on IV vancomycin and IV Zosyn. The patient was seen and evaluated by ID, see dictated report. The patient also was seen by Neurology due to history of seizures, please see dictated report. The patient also underwent lower extremity ultrasound as well for swelling to the lower extremities. The venous Doppler was negative as well as arterial study negative for any DVT or arterial stenosis. Initial chest x-ray revealed increased lung markings suggestive of pneumonia. The patient had a repeat chest x-ray done on 04/28/2019, which showed improvement of the pneumonia with resolution of the pneumonia. The patient also was seen by Psychiatry, please see dictated report as well as Pulmonary, please see dictated report. The patient was subsequently discharged in stable condition back to the [facility] and to continue current previous orders. [facility]# [id number]
== END 2019-04-30 14:07 | DRG 871 ==
LOC: ER 13:53 → TELE 15:58
PROVIDERS: ADMIT Family Medicine; ATTEND Family Medicine
DX: A41.9 Sepsis, unspecified organism (principal); J18.1 Lobar pneumonia, unspecified organism; E87.1 Hypo-osmolality and hyponatremia; M62.82 Rhabdomyolysis; G93.40 Encephalopathy, unspecified; L03.116 Cellulitis of left lower limb; L03.115 Cellulitis of right lower limb; J98.11 Atelectasis; R65.20 Severe sepsis without septic shock; I10 Essential (primary) hypertension; I25.10 Atherosclerotic heart disease of native coronary artery without angina pectoris; E78.5 Hyperlipidemia, unspecified; F03.90 Unspecified dementia, unspecified severity, without behavioral disturbance, psychotic disturbance, mood disturbance, and anxiety; E86.0 Dehydration; G40.909 Epilepsy, unspecified, not intractable, without status epilepticus; J40 Bronchitis, not specified as acute or chronic; F32.9 Major depressive disorder, single episode, unspecified
CPT/HCPCS: 36415-UA; 71045-TC; 74000-TC; 80048-TC; 80053-TC; 80061-TC; 80202-TC; 81001-TC; 82550-TC; 82553; 82948-90; 83605; 84146-90; 84443-TC; 84484-TC; 84550-TC; 85007-TC; 85025-TC; 85610-TC; 85730-TC; 87070; 93005; 93926-LT-TC; 93971-TC-LT; J0456; J1956; J2543; J3370; J7030; J7040; Z7610